=== PATIENT | male | born 1955 | race Caucasian/White ===

== ENCOUNTER 2020-04-11 07:16 | Day surgery (SDC) | payer BC, SELFPAY ==
[2020-04-07 15:34] VITALS: BMI 22.3
--- NOTE | 2020-04-10 09:41 | HO.ANESPROP2 ---
Documented by User: Emily Arredondo 04/10/20 09:42 HPI - Anesthesia Eval Consult details Narrative: 65yo M for Upper Endoscopy and Colonoscopy PMFSH Past Medical History Medical History Anemia Anxiety Back pain Hyperlipidemia Peripheral vascular disease Urethral stricture Viral pneumonia Family History Family History Father Medical history unknown Mother Medical history unknown Surgical History Surgical History H/O arterial bypass of lower limb History of surgery Hx of colonoscopy Hx of sinus surgery S/P femoral-popliteal bypass surgery Social History Social History Alcohol intake: never Smoking Status: Former smoker Advance Directives: No Advance Directives Information Provided: No Advance Directives on File: No Meds Allergies Allergy/AdvReac Type Severity Reaction Status Date / Time pollen extracts [POLLEN] Allergy Unknown Sneezing Verified 04/07/20 15:25 prednisone Allergy Unknown Anxiety Verified 04/07/20 15:25 Home Medications Medication Instructions Recorded Confirmed Type alprazolam 0.25 mg PO BID PRN 04/07/20 04/07/20 History atorvastatin 80 mg PO BEDTIME 04/07/20 04/07/20 History cholecalciferol (vitamin D3) 25 mcg PO DAILY 04/07/20 04/07/20 History [Vitamin D3] clopidogrel [Plavix] 75 mg PO DAILY 04/07/20 04/07/20 History fenofibrate 160 mg PO DAILY 04/07/20 04/07/20 History fexofenadine [Paige] 180 mg PO DAILY 04/07/20 04/07/20 History glucosamine sulfate [Glucosamine] 500 mg PO DAILY 04/07/20 04/07/20 History mometasone [Nasonex] 2 spray INTRANASAL DAILY PRN 04/07/20 04/07/20 History omega 6-ybx-ioi-fish oil [Fish Oil] 1 cap PO DAILY 04/07/20 04/07/20 History tramadol 50 mg PO Q8H PRN 04/07/20 04/07/20 History Exam Exam Date and Time: April 10, 2020 0941 Height,Weight and Vital Signs: Height 5 ft 11 in Weight 72.575 kg Pertinent Lab Results Pertinent Lab Results: Laboratory Tests 12/19/19 02/22/20 07:25 12:27 WBC 8.7 Hgb 11.7 L Hct 36.7 L Plt Count 310 Sodium 141 Potassium 4.2 Chloride 108 BUN 16 Creatinine 0.85 Assessment and Plan Assessment Anesthesia Assessment: Chart Reviewed Documented by User: Ariel Emery 04/11/20 08:12 PMFSH Past Medical History Medical History Anemia Anxiety Back pain Hyperlipidemia Peripheral vascular disease Urethral stricture Viral pneumonia Family History Family History Father Medical history unknown Mother Medical history unknown Surgical History Surgical History H/O arterial bypass of lower limb History of surgery Hx of colonoscopy Hx of sinus surgery S/P femoral-popliteal bypass surgery Social History Social History Alcohol intake: never Smoking Status: Former smoker Advance Directives: No Advance Directives Information Provided: No Advance Directives on File: No Meds Allergies Allergy/AdvReac Type Severity Reaction Status Date / Time pollen extracts [POLLEN] Allergy Unknown Sneezing Verified 04/07/20 15:25 prednisone Allergy Unknown Anxiety Verified 04/07/20 15:25 Home Medications Medication Instructions Recorded Confirmed Type alprazolam 0.25 mg PO BID PRN 04/07/20 04/07/20 History atorvastatin 80 mg PO BEDTIME 04/07/20 04/07/20 History cholecalciferol (vitamin D3) 25 mcg PO DAILY 04/07/20 04/07/20 History [Vitamin D3] clopidogrel [Plavix] 75 mg PO DAILY 04/07/20 04/07/20 History fenofibrate 160 mg PO DAILY 04/07/20 04/07/20 History fexofenadine [Paige] 180 mg PO DAILY 04/07/20 04/07/20 History glucosamine sulfate [Glucosamine] 500 mg PO DAILY 04/07/20 04/07/20 History mometasone [Nasonex] 2 spray INTRANASAL DAILY PRN 04/07/20 04/07/20 History omega 2-lgl-scv-fish oil [Fish Oil] 1 cap PO DAILY 04/07/20 04/07/20 History tramadol 50 mg PO Q8H PRN 04/07/20 04/07/20 History Exam Airway Mallampati Class: III TM Dist: >3cm Loose/Missing/Broken Teeth: No Heart: [id number] Lungs: cta b/l Assessment and Plan Assessment Anesthesia Assessment: Anesthesia Plan Discussed, PAT Visit and Chart Reviewed Final Anesthetic Review NPO: Yes ASA Class: III Final Preanesthetic Review: No Changes in Pt Med Stat, Meds/Allgs Chart Reviewed, Consent Obtained/Reviewed and Anes Risks/Benef Reviewed Patient Risk: Low Procedure Risk: Low Assessment/Block/Sedation in SS: Assess/Block/Sedation-SS Anesthetic Plan Anesthetic Plan: MAC: Disposition: Standard PACU
[2020-04-11 08:02] VITALS: BP 126/69; PULSE 77; RESP 18; TEMP 36.4; O2SAT 99
[2020-04-11] MEDS: Lactated Ringers 1,000 ML 100 ML IVCONT (08:27)
[2020-04-11 09:56] VITALS: BP 100/68; PULSE 67; RESP 12; TEMP 36.1; O2SAT 100
--- NOTE | 2020-04-11 10:03 | PM.OP ---
Brief Operative Note Date of Service: 04/11/20 Pre-op diagnosis: Screening, anemia Post-op diagnosis: other (Gastritis, R/O celiac disease, diverticulosis, internal hemorrhoids) Procedure: EGD with biopsies and Colonoscopy to the cecum Surgeon: Michael Mcdonough Anesthesia: MAC Estimated blood loss (mL): 3.0 Pathology: other (A. Descending duodenum B. Gastric antrum) Condition: stable Disposition: PACU
[2020-04-11 10:11] VITALS: BP 116/68; PULSE 75; RESP 16; TEMP 36.6; O2SAT 99
--- NOTE | 2020-04-11 10:15 | OP_ITS ---
SURGEON: Michael Mcdonough MD INDICATIONS: The patient presents for evaluation of colorectal cancer screening and anemia. Full consent has been obtained from him for this, including risks of bleeding and perforation. PREOPERATIVE DIAGNOSIS: POSTOPERATIVE DIAGNOSIS: PROCEDURE PERFORMED: Esophagogastroduodenoscopy with biopsies, and colonoscopy to cecum. ESTIMATED BLOOD LOSS: COMPLICATIONS: ANESTHESIA: Monitored anesthesia care. ASSISTANTS: SPECIMENS: PREOPERATIVE DIAGNOSES: Colorectal cancer screening and anemia. POSTOPERATIVE DIAGNOSES: Colorectal cancer screening and anemia, gastritis, rule out celiac disease, diverticulosis, and internal hemorrhoids. DESCRIPTION OF PROCEDURE: The patient was placed in the left lateral decubitus position. The Olympus video gastroscope was passed in the posterior oropharynx and upper esophagus under direct vision. The scope was passed slowly into the distal esophagus. The gastroesophageal junction appeared normal at 39 cm. There was no sign of any esophagitis nor Blanton's esophagus. There was a very minimal hiatal hernia. The scope was advanced to pylorus and the duodenum was cannulated to the descending portion. The duodenum including the bulb appeared normal without mass or ulceration. Biopsies were obtained from the 2nd and 3rd portions of duodenum. The scope was withdrawn back into the stomach. The gastric antrum and body had chronic changes of some gastritis with edema and erythema. There were no erosions or ulceration. There was good peristalsis. There was a small amount of coffee-grounds material in the stomach. The scope was retroflexed visualizing the proximal stomach carefully which appeared normal, without any sign of mass or ulceration. Scope was straightened. Biopsies were obtained from the gastric antrum. The scope was withdrawn back in the esophagus. The esophageal mucosa appeared normal. The scope was withdrawn from the patient. He was turned around for colonoscopy. The digital rectal exam revealed no abnormalities. The Olympus video pediatric colonoscope was entered into the rectum and advanced easily to the cecum. Once in the cecum, I did identify normal-appearing cecal pouch with appendiceal orifice and a normal-appearing ileocecal valve. There was transillumination of light deep in the right lower quadrant. The entire cecum appeared normal. The scope was slowly withdrawn assessing all mucosal surfaces carefully. Preparation was excellent. I did not visualize any sign of polyps, colitis, nor angiodysplasia. There was a mild amount of sigmoid diverticulosis. In the rectum, scope was retroflexed visualizing small internal hemorrhoids, but no other pathology. The rectal mucosa appeared normal. The scope was straightened out and withdrawn from the patient. He tolerated both procedures well and was returned to the recovery area in stable condition. IMPRESSION: 1. Gastritis. 2. Rule out celiac disease. 3. Diverticulosis. 4. Internal hemorrhoids. PLAN: The results of the biopsies will be checked. I suspect his mild anemia is in relation to the chronic gastritis and chronic use of Plavix. I shall start him on omeprazole 20 mg daily and I have recommend he start iron supplements once or twice a day as well. I would recommend a repeat colonoscopy in 10 years. If Helicobacter pylori is present in the gastric biopsies, we could consider treating that as well. He was advised to see me in several months for a followup visit. MD TAMIA Arzola/RACHEL / [id number]
--- NOTE | 2020-04-11 10:25 | HO.POSTANES ---
Post Anesthesia Evaluation Post Anesthesia Evaluation Vital Signs: Vital Signs Temp Pulse Resp BP Pulse Ox 04/11/20 08:02 97.5 F 77 18 126/69 99 Anesthesia: Monitored Mental Status: Awake Pain Control: Satisfactory Nausea/Vomiting: None Hydration: Adequate Anesthesia-Related Issues: No Anes. Related Issues
== END 2020-04-11 11:00 | disposition home or self-care (01) ==
PROVIDERS: PCP Internal Medicine; Visit Provider Internal Medicine
PROC: (CPT 45378; principal; 2020-04-11 08:30)
DX: Z12.11 Encounter for screening for malignant neoplasm of colon (principal); K57.30 Diverticulosis of large intestine without perforation or abscess without bleeding; K64.8 Other hemorrhoids; D64.9 Anemia, unspecified; K29.50 Unspecified chronic gastritis without bleeding; K44.9 Diaphragmatic hernia without obstruction or gangrene; E78.5 Hyperlipidemia, unspecified; I73.9 Peripheral vascular disease, unspecified; Z79.899 Other long term (current) drug therapy; Z88.8 Allergy status to other drugs, medicaments and biological substances; Z87.891 Personal history of nicotine dependence
CPT/HCPCS: 45378; 43239; 88305; 88342

== ENCOUNTER → 2020-11-04 15:21 | Outpatient (BNVA) | payer BC, SELFPAY | PROVIDERS: PCP Internal Medicine; Visit Provider Surgery Vascular Surgery ==

== ENCOUNTER 2020-11-13 08:05 | Outpatient (REF) | payer BC, SELFPAY ==
--- NOTE | ~2020-11-13 | XR_ITS ---
EXAMINATION: XR LUMBOSACRAL SPINE CLINICAL INFORMATION: Degenerative disc disease COMPARISON: Previous x-ray November 2018 TECHNIQUE: Three views of the lumbosacral spine. FINDINGS: There is very mild 2 mm anterior subluxation of L4 with respect L5. Bone alignment is otherwise normal. No fracture or dislocation is seen. There is multilevel degenerative disc disease, greatest at L2-L3 and L5-S1. There is lower lumbar spine facet arthritis. There may be arthritis at the sacroiliac joints. XR/XR lumbar spine 2-3V IMPRESSION: Multilevel degenerative disc disease and facet arthritis.
== END 2020-11-13 08:06 | disposition home or self-care (01) ==
LOC: HO.XRAY 08:05
PROVIDERS: PCP Internal Medicine; Visit Provider Internal Medicine
DX: M51.36 Other intervertebral disc degeneration, lumbar region (principal)
CPT/HCPCS: 72100

== ENCOUNTER 2020-11-19 08:15 | Outpatient (REF) | payer BC, SELFPAY ==
--- NOTE | ~2020-11-19 | US_ITS ---
EXAMINATION: NONINVASIVE ASSESSMENT OF THE ARTERIES OF BOTH LOWER EXTREMITIES WITH PVR EXAM AND BILATERAL LOWER EXTREMITY DUPLEX CLINICAL INFORMATION: Peripheral vascular disease. Patient is post reverse saphenous vein bypass left common femoral artery to the posterior tibial artery TECHNIQUE: Ankle pulse volume recordings, ankle pressure measurements and ankle brachial indices were obtained of the lower extremity arterial system bilaterally in addition to duplex Doppler techniques with wave form analysis and measurement of velocities in the common femoral, profunda femoral, superficial femoral, popliteal and tibial arteries. The study was performed only at rest. COMPARISON: Previous exam November 2016 FINDINGS: a) AT REST: RIGHT LE. The right ankle-brachial index is: 1.1 2. Right ankle pressure: Decreased 3. Right ankle PVR waveform: Dampened 4. Right direct duplex Doppler findings: There is evidence of atherosclerotic disease with vessel wall calcification. There are areas of ectasia or dilatation of the right SFA measuring up to 1.5 cm in the midportion. There are multiple collateral vessels seen arising from the distal superficial femoral artery. There is a ectasia or small aneurysm of the right popliteal artery measuring 1.5 cm. * Common femoral artery: 123 cm/s, Diastolic flow reversal: Yes * Superficial femoral artery (proximal, mid, distal): 118, 121, 153 cm/s, Diastolic flow reversal: Yes * Popliteal artery: 53 cm/s, Diastolic flow reversal: Yes * Posterior tibial artery: 71 cm/s, Diastolic flow reversal: Yes There is a small Whitehead's cyst. LEFT LE. The left ankle-brachial index is: 1.2 2. Left ankle pressure: Slightly decreased 3. Left ankle PVR waveform: Slightly dampened 4. Left direct duplex Doppler findings: There is evidence of atherosclerotic disease. * Common femoral artery: 105 cm/s, Diastolic flow reversal: Yes * Superficial femoral artery occluded * Popliteal artery: Occluded * The left femoral to posterior tibial artery bypass graft is patent. This is has areas of dilatation measuring up to 2.2 cm proximally. This has velocities ranging from 69 to 31 cm/s. No visible stenosis is seen. * Posterior tibial artery: 99 cm/s, Diastolic flow reversal: No. Biphasic. ECTOR Reference: * >0.97-1.25 = normal - no significant arterial disease * 0.75-0.96 = mild peripheral arterial disease * 0.5-0.74 = moderate peripheral arterial disease * <0.50 = severe peripheral arterial disease US/US ECTOR complete IMPRESSION: Right: Vessel wall calcification. No evidence of hemodynamically significant stenosis. 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 Patent left femoral to posterior tibial artery bypass graft. The graft is dilated measuring up to 2.2 cm proximally.
--- NOTE | ~2020-11-19 | US_ITS ---
EXAMINATION: NONINVASIVE ASSESSMENT OF THE ARTERIES OF BOTH LOWER EXTREMITIES WITH PVR EXAM AND BILATERAL LOWER EXTREMITY DUPLEX CLINICAL INFORMATION: Peripheral vascular disease. Patient is post reverse saphenous vein bypass left common femoral artery to the posterior tibial artery TECHNIQUE: Ankle pulse volume recordings, ankle pressure measurements and ankle brachial indices were obtained of the lower extremity arterial system bilaterally in addition to duplex Doppler techniques with wave form analysis and measurement of velocities in the common femoral, profunda femoral, superficial femoral, popliteal and tibial arteries. The study was performed only at rest. COMPARISON: Previous exam November 2016 FINDINGS: a) AT REST: RIGHT LE. The right ankle-brachial index is: 1.1 2. Right ankle pressure: Decreased 3. Right ankle PVR waveform: Dampened 4. Right direct duplex Doppler findings: There is evidence of atherosclerotic disease with vessel wall calcification. There are areas of ectasia or dilatation of the right SFA measuring up to 1.5 cm in the midportion. There are multiple collateral vessels seen arising from the distal superficial femoral artery. There is a ectasia or small aneurysm of the right popliteal artery measuring 1.5 cm. * Common femoral artery: 123 cm/s, Diastolic flow reversal: Yes * Superficial femoral artery (proximal, mid, distal): 118, 121, 153 cm/s, Diastolic flow reversal: Yes * Popliteal artery: 53 cm/s, Diastolic flow reversal: Yes * Posterior tibial artery: 71 cm/s, Diastolic flow reversal: Yes There is a small Whitehead's cyst. LEFT LE. The left ankle-brachial index is: 1.2 2. Left ankle pressure: Slightly decreased 3. Left ankle PVR waveform: Slightly dampened 4. Left direct duplex Doppler findings: There is evidence of atherosclerotic disease. * Common femoral artery: 105 cm/s, Diastolic flow reversal: Yes * Superficial femoral artery occluded * Popliteal artery: Occluded * The left femoral to posterior tibial artery bypass graft is patent. This is has areas of dilatation measuring up to 2.2 cm proximally. This has velocities ranging from 69 to 31 cm/s. No visible stenosis is seen. * Posterior tibial artery: 99 cm/s, Diastolic flow reversal: No. Biphasic. ECTOR Reference: * >0.97-1.25 = normal - no significant arterial disease * 0.75-0.96 = mild peripheral arterial disease * 0.5-0.74 = moderate peripheral arterial disease * <0.50 = severe peripheral arterial disease US/US arterial duplex LE BI IMPRESSION: Right: Vessel wall calcification. No evidence of hemodynamically significant stenosis. 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 Patent left femoral to posterior tibial artery bypass graft. The graft is dilated measuring up to 2.2 cm proximally.
== END 2020-11-19 08:16 | disposition home or self-care (01) ==
LOC: HO.US 08:15
PROVIDERS: PCP Internal Medicine; Visit Provider Surgery Vascular Surgery
DX: I70.213 Atherosclerosis of native arteries of extremities with intermittent claudication, bilateral legs (principal)
CPT/HCPCS: 93923; 93925

== ENCOUNTER → 2020-12-11 10:42 | Outpatient (BNVA) | payer BC, SELFPAY | PROVIDERS: PCP Internal Medicine; Visit Provider Surgery Vascular Surgery ==

== ENCOUNTER → 2020-12-25 10:06 | Outpatient (BNVA) | payer BC, SELFPAY | PROVIDERS: PCP Internal Medicine; Referring Provider Internal Medicine; Visit Provider Surgery ==

== ENCOUNTER 2021-03-03 05:58 | Day surgery (SDC) | payer BC, SELFPAY ==
[2021-02-26 12:10] VITALS: BMI 23.0
--- NOTE | 2021-03-02 09:33 | HO.ANESPROP2 ---
Documented by User: Emily Arredondo NP 03/02/21 09:34 HPI - Anesthesia Eval Consult details Narrative: 65yo M for Exam Under Anesthesia, Poss Seton, Poss Fistulotomy Plavix for PVD - OK to hold per PCP [facility] Active Problems Active Problems: All Active Problems (Updated 02/26/21 @ 12:16 by Anais Maurer, RN) Gastritis (Acute) Sebaceous cyst (Acute) Anal fistula (Acute) Anemia (Acute) Impaired glucose tolerance (Acute) Peripheral neuropathy (Acute) Lumbar degenerative disc disease (Acute) Anxiety (Acute) Erectile dysfunction (Acute) Allergic rhinitis (Acute) Mixed hyperlipidemia (Acute) Peripheral vascular disease (Acute) Past Medical History Medical History Allergic rhinitis Anal fistula Anemia Anxiety Back pain Cold virus COVID-19 vaccine series completed Erectile dysfunction Impaired glucose tolerance Insomnia Lumbar degenerative disc disease Mixed hyperlipidemia Peripheral neuropathy Peripheral vascular disease Urethral stricture Viral pneumonia Family History Family History Father Medical history unknown Mother Medical history unknown Surgical History Surgical History H/O arterial bypass of lower limb Hx of colonoscopy Hx of sinus surgery S/P femoral-popliteal bypass surgery Social History Social History (Updated 02/26/21 @ 12:07 by Anais Maurer, THAO) Housing: House Alcohol intake: never Patient Tobacco Use Status: Former Tobacco user Quit Date: 2011 Tobacco use type: Cigarette e-Cigarette/Vaping Use: Never Used Second Hand Smoke Exposure: Yes Use of substances other than those prescribed or required for medical reasons: No Are you DNR?: No Advance Directives: No Advance Directives Information Provided: No Advance Directives on File: No service: No Current occupational status: employed Meds Allergies Allergy/AdvReac Type Severity Reaction Status Date / Time pollen extracts [POLLEN] Allergy Intermediate Sneezing Verified 02/26/21 12:10 ibuprofen [From Advil] Allergy Swelling Verified 03/03/21 06:20 Home Medications Medication Instructions Recorded Confirmed Last Taken Type cholecalciferol (vitamin D3) 25 25 mcg PO DAILY 04/07/20 02/26/21 04/11/20 04:00 History mcg (1,000 unit) capsule (Vitamin D3) glucosamine sulfate 500 mg tablet 500 mg PO DAILY 04/07/20 02/26/21 Unknown History (Glucosamine) mometasone 50 mcg/actuation nasal 2 spray INTRANASAL DAILY PRN 04/07/20 02/26/21 Unknown History spray (Nasonex) omega 3-rcr-com-fish oil 1,000 mg 1 cap PO DAILY 04/07/20 02/26/21 04/08/20 History (120 mg-180 mg) capsule (Fish Oil) Exam Exam Date and Time: March 02, [id number] Height,Weight and Vital Signs: Height 5 ft 11 in Weight 74.843 kg Assessment and Plan Assessment Anesthesia Assessment: Chart Reviewed Documented by User: Symone Salmon MD 03/03/21 08:26 [facility] Past Medical History Medical History Allergic rhinitis Anal fistula Anemia Anxiety Back pain Cold virus COVID-19 vaccine series completed Erectile dysfunction Impaired glucose tolerance Insomnia Lumbar degenerative disc disease Mixed hyperlipidemia Peripheral neuropathy Peripheral vascular disease Urethral stricture Viral pneumonia Family History Family History Father Medical history unknown Mother Medical history unknown Family history of problems with anesthesia: No Surgical History Surgical History H/O arterial bypass of lower limb Hx of colonoscopy Hx of sinus surgery S/P femoral-popliteal bypass surgery History of Problems with Anesthesia: No Social History Social History (Updated 02/26/21 @ 12:07 by Anais Maurer RN) Housing: House Alcohol intake: never Patient Tobacco Use Status: Former Tobacco user Quit Date: 2011 Tobacco use type: Cigarette e-Cigarette/Vaping Use: Never Used Second Hand Smoke Exposure: Yes Use of substances other than those prescribed or required for medical reasons: No Are you DNR?: No Advance Directives: No Advance Directives Information Provided: No Advance Directives on File: No service: No Current occupational status: employed Meds Allergies Allergy/AdvReac Type Severity Reaction Status Date / Time pollen extracts [POLLEN] Allergy Intermediate Sneezing Verified 02/26/21 12:10 ibuprofen [From Advil] Allergy Swelling Verified 03/03/21 06:20 Home Medications Medication Instructions Recorded Confirmed Last Taken Type cholecalciferol (vitamin D3) 25 25 mcg PO DAILY 04/07/20 02/26/21 04/11/20 04:00 History mcg (1,000 unit) capsule (Vitamin D3) glucosamine sulfate 500 mg tablet 500 mg PO DAILY 04/07/20 02/26/21 Unknown History (Glucosamine) mometasone 50 mcg/actuation nasal 2 spray INTRANASAL DAILY PRN 04/07/20 02/26/21 Unknown History spray (Nasonex) omega 7-gch-jjb-fish oil 1,000 mg 1 cap PO DAILY 04/07/20 02/26/21 04/08/20 History (120 mg-180 mg) capsule (Fish Oil) Exam Height,Weight and Vital Signs: Height 5 ft 11 in Weight 74.843 kg Vital Signs Temp Pulse Resp BP Pulse Ox 03/03/21 06:34 97.8 F 71 16 117/66 99 Airway Mallampati Class: I TM Dist: >3cm Neck ROM: Full Loose/Missing/Broken Teeth: No Heart: RRR Lungs: CTAB Assessment and Plan Assessment Anesthesia Assessment: Anesthesia Plan Discussed Final Anesthetic Review Family History of Problems with Anesthesia: No History of Problems with Anesthesia: No NPO: Yes ASA Class: III Final Preanesthetic Review: No Changes in Pt Med Stat, Meds/Allgs Chart Reviewed, Consent Obtained/Reviewed and Anes Risks/Benef Reviewed Patient Risk: Intermediate Procedure Risk: Low Assessment/Block/Sedation in SS: Assess/Block/Sedation-SS Anesthetic Plan Anesthetic Plan: GA Disposition: Standard PACU
[2021-03-03 06:34] VITALS: BP 117/66; PULSE 71; RESP 16; TEMP 36.6; O2SAT 99
[2021-03-03] MEDS: Lactated Ringers 1,000 ML 100 ML IVCONT (06:40)
--- NOTE | 2021-03-03 07:19 | MHC.SHP ---
Pre-Procedural Eval Section A Date of Service: 03/03/21 Section B Chief Complaint: anal fistula Allergies: Allergies Allergy/AdvReac Type Severity Reaction Status Date / Time pollen extracts [POLLEN] Allergy Intermediate Sneezing Verified 02/26/21 12:10 ibuprofen [From Advil] Allergy Swelling Verified 03/03/21 06:20 Plan I have reviewed the history and physical and performed a pertinent physical examination on my patient. No changes have occurred unless specified.
--- NOTE | 2021-03-03 08:12 | W.PM.OPN ---
Operative Note Operative Note Date of Service: 03/03/21 Narrative: Preop diagnosis: Anal Fistula Postop diagnosis: Anal fistula Procedure: Exam under anesthesia, and seton placement Surgeon: Horace Lozoya MD Asst: MONIK [place] student The patient is a 65-year-old male with note of recurrent area of drainage and swelling the anus. Examination in the office revealed what appeared to be an external sinus opening about 1 cm from the anal verge on the left anterior area. I therefore explained to him the option of proceeding with exam under anesthesia, possible fistulotomy, possible seton placement. He understood the risks, benefits, and alternatives and he wanted to proceed. He was brought to the operating room placed in prone nesha-knife position under general anesthesia via endotracheal tube. The buttocks were retracted with wide tape laterally. The perianal area was prepped and draped in the usual sterile fashion. A surgical time-out was done. The patient received Cefotan 2 g IV preoperatively. I infiltrated the perianal area with lidocaine 1%. I examined the perianal area and there was note of what appeared to be a very small external sinus opening in the left anterolateral aspect just about 1 cm from the anal verge. I inserted a Gavin Varma retractor and examined the anal canal circumferentially. He did have external and internal hemorrhoids. I could feel an induration on the area surrounding the external sinus. I did not see any other lesions. I inserted a fine probe through the external sinus and followed this gently making sure that we did not create any false tract. The probe came through small internal sinus opening along the dentate line radially. I passed a yellow vessel loop as a seton through this. This was looped and tied with a silk 3-0 tie. I shortened the tract by cauterizing the skin in the perianal area to unroof this . I then infiltrated the perianal area with Marcaine 0.5% for postop analgesia. The procedure was then completed. The patient tolerated procedure well. There were no complication noted. Estimated blood loss about 2 cc. Initial final counts of sponges and instruments were correct. The patient is extubated without difficulty and transferred to the recovery room with stable vital signs.
--- NOTE | 2021-03-03 08:17 | PM.OP ---
Brief Operative Note Date of Service: 03/03/21 Pre-op diagnosis: Anal fistula Post-op diagnosis: same Procedure: Exam under anesthesia, seton placement Surgeon: Horace Lozoya MD Anesthesia: GETA Was an Data Modeler used for this Procedure?: No Estimated blood loss (mL): 2 Pathology: none sent Condition: stable Disposition: PACU
[2021-03-03 08:28] VITALS: BP 122/61; PULSE 81; RESP 16; TEMP 36.1; O2SAT 100
[2021-03-03 08:33] VITALS: BP 117/67; PULSE 73; RESP 16; O2SAT 100
[2021-03-03 08:38] VITALS: BP 119/74; PULSE 75; RESP 16; O2SAT 100
[2021-03-03] MEDS: oxyCODONE HCl Immed Release 5 MG TABLET PO (08:41)
[2021-03-03 08:44] VITALS: BP 117/72; PULSE 80; RESP 16; O2SAT 98
[2021-03-03 09:00] VITALS: BP 120/72; PULSE 74; RESP 16; TEMP 36.1; O2SAT 99
== END 2021-03-03 09:53 | disposition home or self-care (01) ==
PROVIDERS: PCP Internal Medicine; Visit Provider Surgery
PROC: (CPT 46020; principal; 2021-03-03 07:30)
DX: K60.3 Anal fistula (principal); R73.02 Impaired glucose tolerance (oral); D64.9 Anemia, unspecified; I73.9 Peripheral vascular disease, unspecified; G62.9 Polyneuropathy, unspecified; Z79.899 Other long term (current) drug therapy; Z88.8 Allergy status to other drugs, medicaments and biological substances; Z87.891 Personal history of nicotine dependence; Z87.01 Personal history of pneumonia (recurrent)
CPT/HCPCS: 46020; J2250; J2405; J3010

== ENCOUNTER → 2021-03-18 09:55 | Outpatient (BNVA) | payer BC, SELFPAY | PROVIDERS: PCP Internal Medicine; Referring Provider Internal Medicine; Visit Provider Surgery ==

== ENCOUNTER → 2021-04-02 09:40 | Outpatient (BNVA) | payer BC, SELFPAY | PROVIDERS: PCP Internal Medicine; Referring Provider Internal Medicine; Visit Provider Surgery ==

== ENCOUNTER 2021-04-30 06:09 | Outpatient (REF) | payer BC, SELFPAY ==
[2021-04-30 06:24] LABS: MANUAL DIFF FLAG NO
[2021-04-30 07:23] LABS: Basophils Percent Auto 0.9 % (0-2); Eosinophils Absolute Auto 0.3 X10*3/uL (0.0-0.4); Eosinophils Percent Auto 5.8 % (0-4); Hematocrit 37.9 % (42.0-52.0); Hemoglobin 12.3 g/dl (14.0-18.0); Imm Gran Abs Auto 0.01 X10*3/uL (0.00-0.03); Imm Gran Pct Auto 0.2 % (0.0-0.4); Lymphocytes Absolute Auto 1.1 X10*3/uL (1.2-4.9); Lymphocytes Percent Auto 25.5 % (20-40); Mean Corpuscular HGB Conc 32.5 g/dl (31.0-36.0); Mean Corpuscular Hemoglobin 27.4 pg (27.0-33.0); Mean Corpuscular Volume 84.4 fL (80.0-98.0); Monocytes Absolute Auto 0.4 X10*3/uL (0.1-1.2); Monocytes Percent Auto 9.8 % (2-11); Neutrophils Absolute Auto 2.6 x10*3/uL (2.0-8.3); Neutrophils Percent Auto 57.8 % (45-73); Platelet Count 301 X10*3/uL (160-400); Red Blood Count 4.49 X10*6/uL (4.60-5.80); Red Cell Distribution Width 14.3 % (11.0-16.0); White Blood Count 4.5 X10*3/uL (4.8-10.8)
[2021-04-30 07:24] LABS: Immature Retic Fraction 3.9 % (2.3-13.4); Retic HGB Equivalent 31.2 pg (30.0-35.0); Reticulocyte Percent 1.1 % (0.5-1.8); Reticulocytes Absolute 0.048 X10*6/uL (0.026-0.095)
[2021-04-30 08:04] LABS: Alanine Aminotransferase 35 U/L (0-40); Albumin Level 4.2 g/dL (3.5-5.0); Alkaline Phosphatase 73 U/L (39-117); Anion Gap 13 (12-20); Aspartate Amino Transferase 28 U/L (5-37); Bilirubin Total 0.4 mg/dL (0.0-1.0); Blood Urea Nitrogen 17 mg/dL (9-16); Calcium 9.8 mg/dL (8.4-10.2); Carbon Dioxide 27 mmol/L (22-29); Chloride 109 mmol/L (96-108); Cholesterol 180 mg/dL; Estimated Glomerular Filt Rate > 60; Glucose Fasting 102 mg/dL (60-99); HDL Cholesterol 44 mg/dL; Iron 67 mcg/dL (45-160); LDL Cholesterol Calculated 113 mg/dl; Percent Iron Saturation 19 % (15-50); Potassium 4.6 mmol/L (3.3-5.1); Sodium 144 mmol/L (135-145); Total Iron Binding Capacity 351 mcg/dL (228-428); Total Protein 6.9 g/dL (6.5-8.0); Triglycerides 116 mg/dL; Unsaturated Iron Binding 284 ug/dL
[2021-04-30 08:15] LABS: Ferritin 165 ng/mL (20-250); Free T4 (Free Thyroxine) 1.05 ng/dL (0.71-1.85)
[2021-04-30 08:26] LABS: Prostate Specific Antigen Scr 0.48 ng/mL (<0.05-4.0)
[2021-04-30 08:58] LABS: Folate 15.6 ng/mL (> or = 4.0); Vitamin B12 915 pg/mL (200-900)
== END 2021-04-30 06:10 | disposition home or self-care (01) ==
LOC: HO.LAB 06:09
PROVIDERS: Internal Medicine; PCP Internal Medicine; Visit Provider Internal Medicine
DX: Z12.5 Encounter for screening for malignant neoplasm of prostate (principal); E78.2 Mixed hyperlipidemia; G62.9 Polyneuropathy, unspecified; M51.36 Other intervertebral disc degeneration, lumbar region; J30.9 Allergic rhinitis, unspecified
CPT/HCPCS: 36415; 80053; 80061; 82607; 82728; 82746; 83540; 84153; 84439; 84443; 85025; 85045

== ENCOUNTER → 2021-05-04 08:58 | Outpatient (BNVA) | payer BC, SELFPAY | PROVIDERS: PCP Internal Medicine; Referring Provider Internal Medicine; Visit Provider Surgery ==

== ENCOUNTER → 2021-08-13 09:11 | Outpatient (BNVA) | payer BC, SELFPAY | PROVIDERS: PCP Internal Medicine; Referring Provider Internal Medicine; Visit Provider Surgery | DX: Z13.89 Encounter for screening for other disorder (principal) ==

== ENCOUNTER → 2021-09-21 09:29 | Outpatient (BNVA) | payer BC, SELFPAY | PROVIDERS: PCP Internal Medicine; Referring Provider Internal Medicine; Visit Provider Surgery | DX: Z13.89 Encounter for screening for other disorder (principal) ==

== ENCOUNTER → 2021-11-02 10:22 | Outpatient (BNVA) | payer BC, SELFPAY | PROVIDERS: PCP Internal Medicine; Referring Provider Internal Medicine; Visit Provider Surgery | DX: K60.3 Anal fistula (principal) ==

== ENCOUNTER 2021-12-17 08:24 | Outpatient (REF) | payer BC, SELFPAY ==
--- NOTE | ~2021-12-17 | US_ITS ---
EXAMINATION: NONINVASIVE ASSESSMENT OF THE ARTERIES OF BOTH LOWER EXTREMITIES WITH PVR EXAM AND BILATERAL LOWER EXTREMITY DUPLEX Karen Edwards MD CLINICAL INFORMATION: Peripheral vascular disease TECHNIQUE: Ankle pulse volume recordings, ankle pressure measurements and ankle brachial indices were obtained of the lower extremity arterial system bilaterally in addition to duplex Doppler techniques with wave form analysis and measurement of velocities in the common femoral, profunda femoral, superficial femoral, popliteal and tibial arteries. The study was performed only at rest. COMPARISON: Lower extremity noninvasive exam on 11/19/2020 FINDINGS: a) AT REST: RIGHT LE. The right ankle-brachial index is: 1.19 * >0.97-1.25 = normal - no significant arterial disease * 0.75-0.96 = mild peripheral arterial disease * 0.5-0.74 = moderate peripheral arterial disease * <0.50 = severe peripheral arterial disease 2. Right ankle pressure: normal. 3. Right ankle PVR waveform: normal. 4. Right direct duplex Doppler findings: normal multi-phasic flow is appreciated. There are scattered areas of atherosclerotic disease but no hemodynamically significant stenoses. Mild dilatation of the SFA and popliteal artery suggesting aneurysms. LEFT LE. The left ankle-brachial index is: 1.29 * >0.97-1.25 = normal - no significant arterial disease * 0.75-0.96 = mild peripheral arterial disease * 0.5-0.74 = moderate peripheral arterial disease * <0.50 = severe peripheral arterial disease 2. Left ankle pressure: normal. 3. Left ankle PVR waveform: normal. 4. Left direct duplex Doppler findings: Occlusion of the right superficial femoral artery and popliteal artery. Reconstitution of the posterior tibial artery. The common femoral-posterior tibial artery bypass graft is patent. No significant stenoses are identified. US/US arterial duplex LE BI IMPRESSION: Right lower extremity: Scattered areas of atherosclerotic disease, no hemodynamically significant stenoses. 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 Left lower extremity: Occlusion of the [place] superficial femoral and popliteal artery. Patent common femoral-posterior tibial artery bypass graft. No significant change in findings compared to the prior exam on 11/19/2020.
--- NOTE | ~2021-12-17 | US_ITS ---
EXAMINATION: NONINVASIVE ASSESSMENT OF THE ARTERIES OF BOTH LOWER EXTREMITIES WITH PVR EXAM AND BILATERAL LOWER EXTREMITY DUPLEX Karen Edwards MD CLINICAL INFORMATION: Peripheral vascular disease TECHNIQUE: Ankle pulse volume recordings, ankle pressure measurements and ankle brachial indices were obtained of the lower extremity arterial system bilaterally in addition to duplex Doppler techniques with wave form analysis and measurement of velocities in the common femoral, profunda femoral, superficial femoral, popliteal and tibial arteries. The study was performed only at rest. COMPARISON: Lower extremity noninvasive exam on 11/19/2020 FINDINGS: a) AT REST: RIGHT LE. The right ankle-brachial index is: 1.19 * >0.97-1.25 = normal - no significant arterial disease * 0.75-0.96 = mild peripheral arterial disease * 0.5-0.74 = moderate peripheral arterial disease * <0.50 = severe peripheral arterial disease 2. Right ankle pressure: normal. 3. Right ankle PVR waveform: normal. 4. Right direct duplex Doppler findings: normal multi-phasic flow is appreciated. There are scattered areas of atherosclerotic disease but no hemodynamically significant stenoses. Mild dilatation of the SFA and popliteal artery suggesting aneurysms. LEFT LE. The left ankle-brachial index is: 1.29 * >0.97-1.25 = normal - no significant arterial disease * 0.75-0.96 = mild peripheral arterial disease * 0.5-0.74 = moderate peripheral arterial disease * <0.50 = severe peripheral arterial disease 2. Left ankle pressure: normal. 3. Left ankle PVR waveform: normal. 4. Left direct duplex Doppler findings: Occlusion of the right superficial femoral artery and popliteal artery. Reconstitution of the posterior tibial artery. The common femoral-posterior tibial artery bypass graft is patent. No significant stenoses are identified. US/US ECTOR complete IMPRESSION: Right lower extremity: Scattered areas of atherosclerotic disease, no hemodynamically significant stenoses. 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 Left lower extremity: Occlusion of the [place] superficial femoral and popliteal artery. Patent common femoral-posterior tibial artery bypass graft. No significant change in findings compared to the prior exam on 11/19/2020.
== END 2021-12-17 08:25 | disposition home or self-care (01) ==
LOC: HO.US 08:24
PROVIDERS: Visit Provider Surgery Vascular Surgery
DX: I73.9 Peripheral vascular disease, unspecified (principal)
CPT/HCPCS: 93923; 93925

== ENCOUNTER → 2022-05-19 09:01 | Outpatient (BNVA) | payer MEDICARE, SELFPAY | PROVIDERS: PCP Internal Medicine; Visit Provider Surgery | DX: K60.3 Anal fistula (principal) | CPT/HCPCS: 99212 ==

== ENCOUNTER → 2022-06-24 13:32 | Outpatient (BNVA) | payer MEDICARE, SELFPAY | PROVIDERS: PCP Internal Medicine; Visit Provider Surgery | DX: K60.3 Anal fistula (principal) | CPT/HCPCS: 99212 ==

== ENCOUNTER → 2022-07-22 09:34 | Outpatient (BNVA) | payer MEDICARE, SELFPAY | PROVIDERS: PCP Internal Medicine; Visit Provider Surgery | DX: K60.3 Anal fistula (principal) | CPT/HCPCS: 99212 ==

== ENCOUNTER 2022-11-18 09:20 | Outpatient (REF) | payer MEDICARE, SELFPAY ==
--- NOTE | ~2022-11-18 | US_ITS ---
EXAMINATION: US SCROTUM CLINICAL INFORMATION: Right lower quadrant pain and right-sided testicular pain. Rule out torsion versus epididymitis.. COMPARISON: August 15, 2007 TECHNIQUE: A sonogram of the scrotum was performed assessing luna-scale appearance and color Doppler flow. Spectral Doppler analysis of the arterial and venous flow were performed in the testes bilaterally. FINDINGS: RIGHT: Right testicle measures 4.1 x 2.3 x 3.4 cm, volume 16.8 mL. No focal testicular parenchymal lesions are visualized. Spectral Doppler analysis of the arterial and venous flow is normal in the right testis. Right epididymal head is normal in size. There is a 4 mm epididymal head cyst. There is a small hydrocele present. No right varicocele is seen. Right epididymal Doppler flow is normal. LEFT: Left testicle measures 4.2 x 2.1 x 3.1 cm, volume 14.3 mL. No focal testicular parenchymal lesions are visualized. Spectral Doppler analysis of the arterial and venous flow is normal in the left testis. Left epididymal head is normal in size. There is a 2 mm epididymal head cyst. No left varicocele is seen. There is a small hydrocele present. There is some left epididymal head calcifications. Left epididymal Doppler flow is normal. US/US scrotum IMPRESSION: No evidence of testicular torsion or epididymitis.
--- NOTE | ~2022-11-18 | US_ITS ---
EXAMINATION: US SCROTUM CLINICAL INFORMATION: Right lower quadrant pain and right-sided testicular pain. Rule out torsion versus epididymitis.. COMPARISON: August 15, 2007 TECHNIQUE: A sonogram of the scrotum was performed assessing luna-scale appearance and color Doppler flow. Spectral Doppler analysis of the arterial and venous flow were performed in the testes bilaterally. FINDINGS: RIGHT: Right testicle measures 4.1 x 2.3 x 3.4 cm, volume 16.8 mL. No focal testicular parenchymal lesions are visualized. Spectral Doppler analysis of the arterial and venous flow is normal in the right testis. Right epididymal head is normal in size. There is a 4 mm epididymal head cyst. There is a small hydrocele present. No right varicocele is seen. Right epididymal Doppler flow is normal. LEFT: Left testicle measures 4.2 x 2.1 x 3.1 cm, volume 14.3 mL. No focal testicular parenchymal lesions are visualized. Spectral Doppler analysis of the arterial and venous flow is normal in the left testis. Left epididymal head is normal in size. There is a 2 mm epididymal head cyst. No left varicocele is seen. There is a small hydrocele present. There is some left epididymal head calcifications. Left epididymal Doppler flow is normal. US/US scrotum doppler IMPRESSION: No evidence of testicular torsion or epididymitis.
== END 2022-11-18 09:21 | disposition home or self-care (01) ==
LOC: HO.HMGCX 09:20
PROVIDERS: PCP Internal Medicine; Visit Provider Physician Assistant
DX: R10.31 Right lower quadrant pain (principal)
CPT/HCPCS: 76870; 93975

== ENCOUNTER 2022-12-10 08:37 | Outpatient (REF) | payer MEDICARE, SELFPAY ==
--- NOTE | ~2022-12-10 | XR_ITS ---
EXAMINATION: XR HIP, RIGHT CLINICAL INFORMATION: Right lower quadrant pain. COMPARISON: None available. TECHNIQUE: Two views of the right hip. FINDINGS: Some minimal degenerative changes are present in the hip with some acetabular roof sclerosis and minimal osteophyte. No fractures are seen. Surgical clips are seen in the region of both saphenous veins. Marked vascular calcification present. XR/XR hip RT min 2V IMPRESSION: Minimal degenerative changes in the right hip.
== END 2022-12-10 08:38 | disposition home or self-care (01) ==
LOC: HO.XRAY 08:37
PROVIDERS: PCP Internal Medicine; Visit Provider Internal Medicine
DX: R10.31 Right lower quadrant pain (principal)
CPT/HCPCS: 73502

== ENCOUNTER 2022-12-17 09:45 | Outpatient (AMB) | payer MEDICARE, SELFPAY ==
[2022-12-17 09:46] VITALS: BP 128/70; PULSE 100; O2SAT 98; BMI 22.1
--- NOTE | 2022-12-17 09:46 | MHC.PC.OV ---
Vital Signs 12/17/22 09:46 Height 5 ft 11 in Weight 158 lb 4 oz BMI 22.1 BP 128/70 Blood Pressure Location Lt brachial Position Sitting Pulse 100 Pulse Source Pulse Oximeter Pulse Oximetry (%) 98 Intake Visit Reasons: Hypercholesterolemia, chronic low back pain Intake Note: pt is here for hypercholesterolemia, and chronic back pain English Composition Teacher Required: No Accompanied by: Self / Same As Patient Allergies pollen extracts [POLLEN] Allergy (Intermediate, Verified 12/17/22 09:47) Sneezing ibuprofen [From Advil] Allergy (Verified 12/17/22 09:47) Swelling Medication List - Last Reconciled 12/17/22 by Maverick Quezada MD alprazolam 0.25 mg PO BID PRN 30 days atorvastatin 80 mg PO DAILY 90 days cholecalciferol (vitamin D3) (Vitamin D3) 25 mcg PO DAILY clopidogrel (Plavix) 75 mg PO DAILY fexofenadine 180 mg PO DAILY ibuprofen 200 mg PO Q12H PRN tramadol 50 mg PO Q8H PRN 90 days trazodone 100 mg PO BEDTIME 90 days triamcinolone acetonide (Nasacort Allergy) 2 sprays intranasal DAILY Tobacco use date assessed: 09/10/22 Fall risk assessment: No Falls in past year Last assessed Fall Risk: 12/17/22 Dental Screening Dental Screen Date: 12/17/22 Did you have a dental visit in the last 12 months?: Yes Did you have a dental problem in the last 6 months where you did not have access to dental care?: No Was dental information given to patient?: Patient has dentist HPI Hypercholesterolemia, chronic low back pain HPI Details 67-year-old male with lumbar degenerative disc disease hypercholesterolemia impaired glucose tolerance generalized anxiety disorder and the right inguinal pain x-ray of the hip requested patient was last seen 12/03/2022 x-ray revealing mild arthritis also concern on weight . apetitte is good but does not binge, trazodone refill needed PFSH Medical History Allergic rhinitis Anal fistula Anemia Anxiety Back pain Cold virus COVID-19 vaccine series completed Erectile dysfunction Impaired glucose tolerance Insomnia Lumbar degenerative disc disease Mixed hyperlipidemia Peripheral neuropathy Peripheral vascular disease Screening for abdominal aortic aneurysm Urethral stricture Viral pneumonia Surgical History H/O arterial bypass of lower limb History of surgery (03/03/21) Hx of colonoscopy Hx of sinus surgery S/P femoral-popliteal bypass surgery Family History Father Medical history unknown Mother Medical history unknown Social History Housing: House Alcohol intake: never Patient Tobacco Use Status: Former Tobacco user Quit Date: 2011 Tobacco use type: Cigarette Years Smoked: quit 2009 e-Cigarette/Vaping Use: Never Used Second Hand Smoke Exposure: Yes service: No Current occupational status: employed Cognitive needs: No Hearing needs: No Vision needs: Yes Questionnaire Thrive Questionnaire Date Thrive assessed: 09/10/22 HÉCTOR-7 AMB Questionnaire HÉCTOR-7 Date HÉCTOR - 7 assessed: 06/07/22 Source: Developed by Drs. Michael Rebollar, Kait Cooper, Abelardo Ruby and colleagues, with an educational faustino from [employer]. Physical exam (Primary Care) Vital Signs: Last Vital Signs Pulse 100 12/17/22 09:46 BP 128/70 12/17/22 09:46 Pulse Ox 98 12/17/22 09:46 BMI result Body Mass Index 22.1 Tobacco/Smoking Status: Tobacco use Status Tobacco use date assessed 09/10/22 12/17/22 09:51 Patient Tobacco Use Status Former Tobacco user 12/17/22 09:51 Tobacco use type Cigarette 12/17/22 09:51 e-Cigarette/Vaping Use Never Used 12/17/22 09:51 Thrive Assessment: Date of Thrive Assessment Date Thrive assessed 09/10/22 12/17/22 09:51 Const General: alert; No acute distress Eyes Conjunctivae: conjunctivae normal Resp Auscultation: clear to auscultation bilaterally Cardio Rate: regular rate Rhythm: regular rhythm GI Other: Vague tenderness on right lower quadrant with no guarding no rebound Inspection: Yes normal to inspection Extrem General: Yes normal to inspection and No edema Assessment and Plan Assessment & Plan (1) Right inguinal pain: Code(s): R10.31 - Right lower quadrant pain Plan: CT scan to look into the problem question of hernia (2) RLQ abdominal pain: Code(s): R10.31 - Right lower quadrant pain Plan: Will order for the CT scan to try to explain pain that the patient is having, patient also is having some weight loss Orders: Orders Blood Urea Nitrogen Today R10.31 - Right lower quadrant pain Creatinine Today R10.31 - Right lower quadrant pain CT abdomen pelvis w IV con Today R10.31 - Right lower quadrant pain Coding Level of Care Code Est Pt Level 4 (58425) Diagnoses Right inguinal pain R10.31 RLQ abdominal pain R10.31
== END 2022-12-17 10:22 | disposition home or self-care (01) ==
PROVIDERS: Visit Provider Internal Medicine
DX: R10.31 Right lower quadrant pain (principal)
CPT/HCPCS: 99214

== ENCOUNTER 2023-01-19 08:49 | Outpatient (REF) | payer MEDICARE, SELFPAY ==
[2023-01-19 10:37] LABS: Blood Urea Nitrogen 15 mg/dL (9-16); Estimated Glomerular Filt Rate > 60
== END 2023-01-19 08:50 | disposition home or self-care (01) ==
LOC: HO.LAB 08:49
PROVIDERS: PCP Internal Medicine; Visit Provider Internal Medicine
DX: R10.31 Right lower quadrant pain (principal)
CPT/HCPCS: 36415; 82565; 84520

== ENCOUNTER 2023-01-24 07:55 | Outpatient (REF) | payer MEDICARE, SELFPAY ==
--- NOTE | ~2023-01-24 | CT_ITS ---
EXAMINATION: CT ABDOMEN AND PELVIS WITH CONTRAST CLINICAL INFORMATION: Right lower quadrant pain COMPARISON: None available. TECHNIQUE: Multidetector volumetric images were obtained from the superior aspect of the liver through the pubic symphysis following administration 85 mL of Omnipaque 350 intravenous contrast. Sagittal and coronal reformatted images were obtained on the technologist's workstation. Oral contrast: Yes This CT examination was performed using dose optimization techniques as appropriate, variously including the following: *Automated exposure control *Adjustment of mA and/or kV according to patient size (this includes techniques or standardized protocols for targeted exams where dose is matched to indication/reason for exam; i.e. extremities or head) *Use of iterative reconstruction technique DLP: 322 mGy-cm FINDINGS: LUNG BASES: There is focal right lower lobe increased groundglass attenuation, clustered peribronchial nodules and bronchial wall thickening. This may represent an infectious or inflammatory process. LIVER, GALLBLADDER, AND BILIARY TREE: The liver is normal in size, shape, and attenuation. Small 1 cm low-attenuation liver lesion in the right lobe the liver probably representing a cyst axial image 19 series 3. Benign-appearing calcification adjacent to the high left lobe the liver near the hepatic venous confluence. No biliary ductal dilatation is present. The gallbladder is unremarkable with no evidence of radiopaque gallstones, gallbladder wall thickening, or obvious pericholecystic inflammatory changes. PANCREAS: Unremarkable. SPLEEN: Unremarkable. ADRENAL GLANDS: Unremarkable. KIDNEYS AND URETERS: The kidneys are normal in size, shape, and attenuation. No hydronephrosis, hydroureter. Bilateral renal cysts. No imaging follow-up recommended. Bilateral renal calcifications probably representing vascular calcifications. BLADDER: Unremarkable. GASTROINTESTINAL TRACT: There is stool throughout the colon questionable for mild constipation. Small and large bowel is otherwise normal. The appendix is normal. The stomach is normal. ABDOMINAL WALL: No significant hernia is appreciated. LYMPH NODES: Normal. VASCULAR: Atherosclerotic disease. Postsurgical changes to the left groin. Focal dilatation of the common femoral artery and proximal SFA measuring 2 cm. PELVIC VISCERA: Unremarkable. OSSEOUS STRUCTURES: Degenerative changes of the spine and hip joints. CT/CT abdomen pelvis w IV con IMPRESSION: Stool throughout the colon questionable for mild constipation. No evidence of obstruction. Appendix small and large bowel are otherwise normal. Probable infectious or inflammatory changes in the right lower lobe. Small liver cyst. Fleischner guidelines were followed.
[2023-01-24] MEDS: iohexoL 350 MG/ML 100 ML INFUS..BTL IV (10:51)
== END 2023-01-24 07:56 | disposition home or self-care (01) ==
LOC: HO.CT 07:55
PROVIDERS: PCP Internal Medicine; Visit Provider Internal Medicine
DX: R10.31 Right lower quadrant pain (principal)
CPT/HCPCS: 74177; Q9967

== ENCOUNTER 2023-03-03 09:03 | Outpatient (AMB) | payer MEDICARE, SELFPAY ==
[2023-03-03 09:05] VITALS: BP 145/80; PULSE 107; BMI 22.7
--- NOTE | 2023-03-03 09:05 | MHC.OFFVIS ---
Intake Vital Signs 03/03/23 09:05 Height 5 ft 11 in Weight 163 lb BMI 22.7 BP 145/80 H Blood Pressure Location Rt brachial Position Sitting Pulse 107 H Intake Visit Reasons: F/u anal fistula Intake Note: This patient presents for a follow-up assessment for seton. Patient c/o; reports no new issues or complaints at this time. Shuffle Board Operator Required: No Accompanied by: Self / Same As Patient Allergies pollen extracts [POLLEN] Allergy (Intermediate, Verified 03/03/23 09:13) Sneezing ibuprofen [From Advil] Allergy (Verified 03/03/23 09:13) Swelling Medication List - Last Reconciled 03/03/23 by Horace Spicer MD alprazolam 0.25 mg PO BID PRN 30 days atorvastatin 80 mg PO DAILY 90 days azithromycin (Zithromax) For 250 mg dose pack: take 500 mg today (day 1), then 250 mg for 4 days (days 2-5) PO cholecalciferol (vitamin D3) (Vitamin D3) 25 mcg PO DAILY clopidogrel (Plavix) 75 mg PO DAILY fexofenadine 180 mg PO DAILY ibuprofen 200 mg PO Q12H PRN tramadol 50 mg PO Q8H PRN 90 days trazodone 100 mg PO BEDTIME 90 days triamcinolone acetonide (Nasacort Allergy) 2 sprays intranasal DAILY HPI F/u anal fistula HPI Details Here for follow-up for his anal fistula with a seton in place. I had been tightening this and I had not seen him since June 2022 as he said he has had been busy with some other health issues including back surgery He denies any new complaints. He denies any significant pain or any new sinuses. [facility] Medical History Screening for abdominal aortic aneurysm Cold virus COVID-19 vaccine series completed Anal fistula Insomnia Impaired glucose tolerance Peripheral neuropathy Lumbar degenerative disc disease Erectile dysfunction Allergic rhinitis Mixed hyperlipidemia Back pain Anxiety Anemia Urethral stricture Viral pneumonia Peripheral vascular disease Surgical History History of surgery (03/03/21) Hx of sinus surgery Hx of colonoscopy S/P femoral-popliteal bypass surgery H/O arterial bypass of lower limb Family History Father Medical history unknown Mother Medical history unknown Social History Housing: House Alcohol intake: never Patient Tobacco Use Status: Former Tobacco user Quit Date: 2011 Tobacco use type: Cigarette Years Smoked: quit 2009 e-Cigarette/Vaping Use: Never Used Second Hand Smoke Exposure: Yes service: No Current occupational status: employed Cognitive needs: No Hearing needs: No Vision needs: Yes Review of Systems Const Denies chills and Denies fever(s) Card Denies chest pain, Denies dyspnea and Denies dyspnea on exertion Resp Denies cough, Denies dyspnea and Denies dyspnea on exertion GI Denies hematochezia and Denies change in bowel habits Denies hematuria and Denies difficulty urinating Musc Reports back pain and Denies limited range of motion Neuro Denies focal weakness and Denies convulsions Psych Denies depression and Denies mood swings Physical Exam Vital Signs: Last Vital Signs Pulse 107 H 03/03/23 09:05 BP 145/80 H 03/03/23 09:05 BMI result Body Mass Index 22.7 Const General: comfortable and no acute distress Resp Effort & Inspection: normal respiratory effort GI Other: Rectal exam shows the seton to be in place but with a very short tract, no new sinuses, no swelling or induration Assessment & Plan Assessment & Plan (1) Anal fistula: Comment: Dr. Spicer 10/2020 Code(s): K60.3 - Anal fistula Plan: I removed this seton today. The residual tract had been very short and the seton itself was very tight around this. I told him that there is a low risk of recurrence. I told him that he should back to the office if he notices any symptoms down the line. Coding Level of Care Code Est Pt Level 2 (63545) Diagnoses Anal fistula K60.3
== END 2023-03-03 09:23 | disposition home or self-care (01) ==
PROVIDERS: PCP Internal Medicine; Visit Provider Surgery
DX: K60.3 Anal fistula (principal)
CPT/HCPCS: 99212

== ENCOUNTER → 2023-03-03 09:03 | Outpatient (BNVA) | payer MEDICARE, SELFPAY | PROVIDERS: PCP Internal Medicine; Visit Provider Surgery | DX: K60.3 Anal fistula (principal) | CPT/HCPCS: 99212 ==

== ENCOUNTER 2023-05-18 14:58 | Outpatient (AMB) | payer MEDICARE, SELFPAY ==
--- NOTE | 2023-05-18 14:59 | MHC.PC.OV ---
Intake Visit Reasons: cold with bad cough Allergies pollen extracts [POLLEN] Allergy (Intermediate, Verified 05/18/23 14:59) Sneezing ibuprofen [From Advil] Allergy (Verified 05/18/23 14:59) Swelling Tobacco use date assessed: 05/18/23 Fall risk assessment: No Falls in past year Last assessed Fall Risk: 05/18/23 HPI cold with bad cough HPI Details 68-year-old male with hypercholesterolemia peripheral vascular disease generalized anxiety disorder coming in through Telehealth for an acute problem. Patient follows up with the surgeon for the anal fistula had a CT scan of the right lower quadrant pain showing constipation mild. 3 weeks ago - sneeze, getting worse - fevers started, - went to a family wake- after - , myalgia, running nose , ear ache, hoarness, odd sensation on nasal area, greenish discharge PFSH Medical History Screening for abdominal aortic aneurysm Cold virus COVID-19 vaccine series completed Anal fistula Insomnia Impaired glucose tolerance Peripheral neuropathy Lumbar degenerative disc disease Erectile dysfunction Allergic rhinitis Mixed hyperlipidemia Back pain Anxiety Anemia Urethral stricture Viral pneumonia Peripheral vascular disease Surgical History History of surgery (03/03/21) Hx of sinus surgery Hx of colonoscopy S/P femoral-popliteal bypass surgery H/O arterial bypass of lower limb Family History Father Medical history unknown Mother Medical history unknown Social History Housing: House Alcohol intake: never Patient Tobacco Use Status: Former Tobacco user Quit Date: 2011 Tobacco use type: Cigarette Years Smoked: quit 2009 e-Cigarette/Vaping Use: Never Used Second Hand Smoke Exposure: Yes service: No Current occupational status: employed Cognitive needs: No Hearing needs: No Vision needs: Yes Questionnaire Thrive Questionnaire Date Thrive assessed: 09/10/22 AUDIT C Alcohol Use Questionnaire (AUDIT-C) 1. How often do you have a drink containing alcohol?: Never 3. How often do you have six or more drinks on one occasion?: Never Total Score: 0 HÉCTOR-7 AMB Questionnaire HÉCTOR-7 Date HÉCTOR - 7 assessed: 06/07/22 Source: Developed by Drs. Michael L. Kait Rebollar Kurt Kroenke and colleagues, with an educational faustino from [employer]. Physical exam (Primary Care) Tobacco/Smoking Status: Tobacco use Status Tobacco use date assessed 05/18/23 05/18/23 15:00 Patient Tobacco Use Status Former Tobacco user 05/18/23 15:00 Tobacco use type Cigarette 05/18/23 15:00 e-Cigarette/Vaping Use Never Used 05/18/23 15:00 Thrive Assessment: Date of Thrive Assessment Date Thrive assessed 09/10/22 05/18/23 15:00 Telehealth Telehealth Location of provider rendering services: practice address Location of patient: address on file Patient Identification confirmed using: Name, : Yes Telehealth method: video ([phone]) Patient verbally consented to treatment: Yes Patient verbally consented to billing insurance company: Yes Patient informed of any privacy concerns related to visit: Yes Minutes spent on Phone/Video with Pt.: 15 Assessment and Plan Assessment & Plan (1) Nasal congestion: Code(s): R09.81 - Nasal congestion Plan: has been using saline rinse and on nasacort, advised continue, increase oral fluids and antibiotics sent. Medications: New doxycycline hyclate 100 mg PO BID 14 caps 0RF R09.81 - Nasal congestion Coding Level of Care Code Tele Est Pt Level 3 (92959) Diagnoses Nasal congestion R09.81
== END 2023-05-18 15:40 | disposition home or self-care (01) ==
LOC: HO.HMGH 14:58
PROVIDERS: PCP Internal Medicine; Visit Provider Internal Medicine
DX: R09.81 Nasal congestion (principal)
CPT/HCPCS: 99213

== ENCOUNTER 2023-05-27 10:58 | Outpatient (AMB) | payer MEDICARE, SELFPAY ==
--- NOTE | 2023-05-27 11:01 | MHC.PC.OV ---
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: No Allergies pollen extracts [POLLEN] Allergy (Intermediate, Verified 05/27/23 11:02) Sneezing ibuprofen [From Advil] Allergy (Verified 05/27/23 11:02) Swelling Tobacco use date assessed: 05/27/23 Fall risk assessment: No Falls in past year Last assessed Fall Risk: 05/27/23 Dental Screening Dental Screen Date: 05/27/23 Did you have a dental visit in the last 12 months?: Yes Did you have a dental problem in the last 6 months where you did not have access to dental care?: No Was dental information given to patient?: Patient has dentist HPI 3 month f/u (closest time available) HPI Details 68-year-old male with a history of hypercholesterolemia lumbar degenerative disc disease generalized anxiety disorder impaired glucose tolerance coming in for follow-up last spoken with through Telehealth May 18 for nasal congestion. Patient is here for follow-up. Patient did have COVID and flu vaccine February 2023 followed up by good surgeon for the anal fistula have a seton in place. Had a CT scan done of the abdomen and pelvis in December 2022 showing constipation. Doxycycline given for nasal congestionj R ear pain sore throat, 2 months ago tucking in dog blanket then had bent L 3rd finger. concern L 3rd finger DIP mild redness concern of sleep apnea- sleeps on watching - tired, no having problem with car , live by himself, , has afternoon nap, , no sleepy after [facility] Medical History (Updated 05/27/23 @ 11:52 by Maverick Quezada MD) Screening for abdominal aortic aneurysm Cold virus COVID-19 vaccine series completed Anal fistula Insomnia Impaired glucose tolerance Peripheral neuropathy Lumbar degenerative disc disease Erectile dysfunction Allergic rhinitis Mixed hyperlipidemia Back pain Anxiety Anemia Urethral stricture Viral pneumonia Peripheral vascular disease Surgical History History of surgery (03/03/21) Hx of sinus surgery Hx of colonoscopy S/P femoral-popliteal bypass surgery H/O arterial bypass of lower limb Family History Father Medical history unknown Mother Medical history unknown Social History (Reviewed 03/03/23 @ 09: by Horace Spicer MD) Housing: House Alcohol intake: never Patient Tobacco Use Status: Former Tobacco user Quit Date: 2011 Tobacco use type: Cigarette Years Smoked: quit 2009 e-Cigarette/Vaping Use: Never Used Second Hand Smoke Exposure: Yes service: No Current occupational status: employed Cognitive needs: No Hearing needs: No Vision needs: Yes Questionnaire Thrive Questionnaire Date Thrive assessed: 09/10/22 AUDIT C Alcohol Use Questionnaire (AUDIT-C) 1. How often do you have a drink containing alcohol?: Never 3. How often do you have six or more drinks on one occasion?: Never Total Score: 0 HÉCTOR-7 AMB Questionnaire HÉCTOR-7 Date HÉCTOR - 7 assessed: 06/07/22 Source: Developed by Drs. Michael Rebollar, Kait Cooper, Abelardo Ruby and colleagues, with an educational faustino from [employer]. Physical exam (Primary Care) Vital Signs: Last Vital Signs Pulse 86 05/27/23 11:02 BP 142/80 H 05/27/23 11:02 Pulse Ox 99 05/27/23 11:02 Oxygen Delivery Method Room Air 05/27/23 11:02 BMI result Body Mass Index 23.7 Tobacco/Smoking Status: Tobacco use Status Tobacco use date assessed 05/27/23 05/27/23 11:03 Patient Tobacco Use Status Former Tobacco user 05/27/23 11:03 Tobacco use type Cigarette 05/27/23 11:03 e-Cigarette/Vaping Use Never Used 05/27/23 11:03 Thrive Assessment: Date of Thrive Assessment Date Thrive assessed 09/10/22 05/27/23 11:03 Const General: alert; No acute distress Eyes Conjunctivae: conjunctivae normal Resp Auscultation: clear to auscultation bilaterally Cardio Rate: regular rate Rhythm: regular rhythm GI Inspection: Yes normal to inspection Extrem General: Yes normal to inspection and No edema Assessment and Plan Assessment & Plan (1) Impaired glucose tolerance: Code(s): R73.02 - Impaired glucose tolerance (oral) Plan: Decrease the amount of carbohydrate intake, pasta, bread, rice and potatoes are all sugar and that is aside from all the sweet stuff, remember that fruits are good but they are Sweet also. (2) Mixed hyperlipidemia: Code(s): E78.2 - Mixed hyperlipidemia Plan: Avoid fried foods, chicken skin, eggs, butter margarine, pastries and meat. Be it pork or beef they have a lot of cholesterol LDL goal of less than 130 and triglyceride of less than 150 patient on atorvastatin 80 mg once a day (3) Anal fistula: Comment: Dr. Spicer 10/2020 Code(s): K60.3 - Anal fistula Plan: Patient being followed up by the surgeon (4) Generalized anxiety disorder: Code(s): F41.1 - Generalized anxiety disorder Plan: Continue with present medication (5) Nasal congestion: Code(s): R09.81 - Nasal congestion (6) Insomnia: Code(s): G47.00 - Insomnia, unspecified (7) Finger pain, left: Code(s): M79.645 - Pain in left finger(s) (8) Hypersomnia: Code(s): G47.10 - Hypersomnia, unspecified Orders: Orders XR finger LT min 2V Today M79.645 - Pain in left finger(s) RT home sleep study Today G47.10 - Hypersomnia, unspecified Medications: New prednisone 4 tabs QD x 2 days then 3 tabs QD x 2 days then 2 tabs Qd x 2 days then 1 tab QD x 2 days PO daily; 20 tabs 0RF J45.909 - Unspecified asthma, uncomplicated, R09.81 - Nasal congestion amoxicillin-pot clavulanate 875-125 mg 1 tab PO BID 20 tabs 0RF R09.81 - Nasal congestion Coding Level of Care Code Est Pt Level 4 (28278) Diagnoses Impaired glucose tolerance R73.02 Mixed hyperlipidemia E78.2 Anal fistula K60.3 Generalized anxiety disorder F41.1 Nasal congestion R09.81 Insomnia G47.00 Finger pain, left M79.645 Hypersomnia G47.10
[2023-05-27 11:02] VITALS: BP 142/80; PULSE 86; O2SAT 99; BMI 23.7
== END 2023-05-27 11:59 | disposition home or self-care (01) ==
PROVIDERS: PCP Internal Medicine; Visit Provider Internal Medicine
DX: R73.02 Impaired glucose tolerance (oral) (principal); E78.2 Mixed hyperlipidemia; K60.3 Anal fistula; F41.1 Generalized anxiety disorder; R09.81 Nasal congestion; G47.00 Insomnia, unspecified; M79.645 Pain in left finger(s); G47.10 Hypersomnia, unspecified
CPT/HCPCS: 99214

== ENCOUNTER 2023-06-04 17:01 | Emergency (ER) | payer MEDICARE, SELFPAY ==
[2023-06-04 18:14] VITALS: BP 136/99; PULSE 94; RESP 18; TEMP 36.6; O2SAT 97; BMI 23.0
--- NOTE | 2023-06-04 19:32 | ED.GENADULT ---
HPI - General Adult General Chief complaint: Skin/Abscess/Foreign Body Stated complaint: ? med struck in throat Time Seen by Provider: 06/04/23 19:28 Source: patient and family Mode of arrival: ambulatory Limitations: no limitations History of Present Illness HPI narrative: this is a 68-year-old male with a history of high cholesterol, PVD on plavix who presents to the ER with complaints of feeling like a pill is stuck in his throat since 09:30. Patient reports he took a allergy medication unknown name at 09:30 and since then he has a sensation that the pill is stuck in his throat and he cannot tolerate any oral liquids without vomiting. Patient reports that he has had some difficulty with swallowing over the years and had upper GI series approximately 1 year ago as well as an endoscopy a [facility]. He is unaware of the results. He denies any abdominal pain, chest pain, difficulty breathing, fevers or chills. Of note, patient did complete a 7 day course of doxycyline/prednisone end of April. Denies history of esophagitis. Related Data Home Medications Medication Instructions Recorded Confirmed cholecalciferol (vitamin D3) 25 25 mcg PO DAILY 04/07/20 03/03/23 mcg (1,000 unit) capsule (Vitamin D3) ibuprofen 200 mg tablet 200 mg PO Q12H PRN 06/07/22 03/03/23 Previous Rx's Medication Instructions Recorded alprazolam 0.25 mg tablet 0.25 mg PO BID PRN Anxiety 30 days 07/29/20 #50 tabs fexofenadine 180 mg tablet 180 mg PO DAILY #90 tabs 03/05/22 triamcinolone acetonide 55 mcg 2 spray intranasal DAILY #16.9 mL 03/05/22 nasal spray aerosol (Nasacort Allergy) atorvastatin 80 mg tablet 80 mg PO DAILY 90 days #90 tabs 09/09/22 trazodone 100 mg tablet 100 mg PO BEDTIME 90 days #90 tabs 12/17/22 clopidogrel 75 mg tablet (Plavix) 75 mg PO DAILY #90 tabs 01/07/23 tramadol 50 mg tablet 50 mg PO Q8H PRN Pain 90 days #270 01/12/23 tabs amoxicillin 875 mg-potassium 1 tab PO BID #20 tabs 05/27/23 clavulanate 125 mg tablet prednisone 10 mg tablet See Rx Instructions PO DAILY #20 05/27/23 tabs Allergies Allergy/AdvReac Type Severity Reaction Status Date / Time pollen extracts [POLLEN] Allergy Intermediate Sneezing Verified 06/04/23 18:14 ibuprofen [From Advil] Allergy Swelling Verified 06/04/23 18:14 Review of Systems Review of Systems: Yes all other systems are reviewed and are negative Constitutional: Constitutional: Reports no additional constitutional complaints, Denies body ache(s), Denies chills, Denies fever(s), Denies headache(s) and Denies weakness Eyes: Eyes: Reports no additional eye complaints and Denies change in vision ENT: Reports system reviewed and no additional complaints, except as documented, Reports dysphagia, Denies dizziness, Denies headache(s), Denies nasal congestion, Denies nasal discharge and Denies neck pain Cardiovascular: Cardiovascular: Reports no additional cardiovascular complaints, Denies chest pain, Denies leg edema and Denies dyspnea Respiratory: Respiratory: Reports no additional respiratory complaints, Denies cough and Denies dyspnea Gastrointestinal: Gastrointestinal: Reports no additional gastrointestinal complaints, Denies abdominal pain, Reports dysphagia, Denies diarrhea, Reports nausea and Reports vomiting Genitourinary: Genitourinary: Denies urinary incontinence Musculoskeletal: Musculoskeletal: Reports no additional musculoskeletal complaints, Denies back pain, Denies arthralgias, Denies joint swelling, Denies neck pain, Denies numbness and Denies tingling Integumentary/Breasts: Skin/Breast: Reports system reviewed and no additional complaints, except as docu and Denies rash Neurologic: Reports system reviewed and no additional complaints, except as documented, Denies Abnormal speech present, Denies dizziness, Denies headache(s), Denies numbness, Denies tingling and Denies weakness [facility] Past Medical History Attestation statement: The following information was validated with the patient. Source: old records reviewed and nursing notes reviewed Onset Date is defined in the Problem List Problems that require an onset date and time if occurred within 24 hrs of arrival to the ED Aortic Dissection and Rupture; Neurologic impairment; Cardiopulmonary Arrest; Endotracheal Intubation; Insertion or Replacement of Mechanical Circulatory Assist Device Medical History Screening for abdominal aortic aneurysm Cold virus COVID-19 vaccine series completed Anal fistula Insomnia Impaired glucose tolerance Peripheral neuropathy Lumbar degenerative disc disease Erectile dysfunction Allergic rhinitis Mixed hyperlipidemia Back pain Anxiety Anemia Urethral stricture Viral pneumonia Peripheral vascular disease Surgical History History of surgery (03/03/21) Hx of sinus surgery Hx of colonoscopy S/P femoral-popliteal bypass surgery H/O arterial bypass of lower limb Family History Family History Father Medical history unknown Mother Medical history unknown Social History Social History Housing: House Alcohol intake: never Patient Tobacco Use Status: Former Tobacco user Quit Date: 2011 Tobacco use type: Cigarette Years Smoked: quit 2009 e-Cigarette/Vaping Use: Never Used Second Hand Smoke Exposure: Yes Advance Directives: No Advance Directives Information Provided: No service: No Current occupational status: employed Cognitive needs: No Hearing needs: No Vision needs: Yes Physical Exam ED Vital Signs: Vital Signs - 24 hr 06/04/23 18:14 Temperature 97.8 F Pulse Rate 94 Respiratory Rate 18 Blood Pressure 136/99 H Pulse Oximetry 97 Oxygen Delivery Method Room Air BMI result Body Mass Index 23.0 Const General: cooperative, healthy appearing, comfortable and no acute distress Orientation/consciousness: patient oriented x3 Limitations: no limitations HENMT Head: Yes normal to inspection Ears: hearing grossly normal bilaterally General nose exam: Normal external nose present Face and sinus: Yes normal facial exam Mouth: Normal oral and palatal mucosa present Throat: Yes posterior oropharynx normal Eyes General: appearance normal, both eyes and all related structures Pupils: Equal, round and reactive pupils present Neck Neck: Yes normal visual inspection Chest Chest palpation & inspection: normal inspection of the chest Resp Effort & Inspection: normal respiratory effort Auscultation: clear to auscultation bilaterally Cardio Rate: regular rate Rhythm: regular rhythm Peripheral pulses: Peripheral pulses 2+ throughout GI Other: +vomiting clear liquids in the room Inspection: Yes normal to inspection Palpation (GI): Soft to palpation and nontender Auscultation: normal bowel sounds Back/Spine/Pelvis Thoracic/Lumbar Spine: thoracic and lumbar spine normal to inspection Skin General skin exam: no rashes or lesions noted Neuro General: patient oriented x3, no focal motor deficits and normal sensation to monofilament Cranial nerves: Yes Equal, round and reactive pupils present Cognition (Neuro): normal cognition Speech: No Abnormal speech present Gait exam (Neuro): Normal gait present Motor exam (neuro): 5/5 motor strength present throughout Extrem General: Yes normal to inspection Course Reevaluation(s) Reevaluation #1: 2130-Patient drank 8 ounces of genaro angela. Feels much improved. No additional vomiting episodes. Will discharge home and follow-up with GI outpatient. His sodium, potassium and anion gap are pending but he feels well, tolerating PO, non toxic appearing and I expect them to be benign Reviewed worrisome signs/symptoms with patient and when to seek additional care. Comfortable with discharge home. Medications Administered Discontinued Medications Generic Name Dose Route Start Last Admin Trade Name Cici PRN Reason Stop Dose Admin Glucagon 1 mg 06/04/23 19:30 06/04/23 20:23 Glucagon Hcl 1 Mg Vial IVPUSH 06/04/23 19:31 1 mg ONCE ONE Administration Sodium Chloride 1,000 mls @ 999 mls/hr 06/04/23 19:27 06/04/23 20:18 Ns IV 06/04/23 20:27 999 mls/hr .Q1H1M STA Administration Ondansetron HCl 4 mg 06/04/23 19:27 06/04/23 20:22 Ondansetron Hcl 4 Mg/2 Ml Vial IVPUSH 06/04/23 19:28 4 mg ONCE ONE Administration Medical Decision Making Medical Decision Making MDM Narrative: this is a 68-year-old male with a history of high cholesterol, PVD on plavix who presents to the ER with complaints of feeling like a pill is stuck in his throat since :. Patient reports he took a allergy medication unknown name at :30 and since then he has a sensation that the pill is stuck in his throat and he cannot tolerate any oral liquids without vomiting. Patient reports that he has had some difficulty with swallowing over the years and had upper GI series approximately 1 year ago as well as an endoscopy a [facility]. He is unaware of the results. He denies any abdominal pain, chest pain, difficulty breathing, fevers or chills. Of note, patient did complete a 7 day course of doxycyline/prednisone end of April. Denies history of esophagitis. Vomiting clear liquids in the room. VSS NO focal abdominal pain, LS CTA Will obtain labs, place PIV, IVF, antiemetic, and 1mg glucagon IV Differential Diagnosis Differential Diagnoses: The differential diagnosis associated with the presentation includes food impaction, esophagitis Admission/Observation Consideration of admission/observation: Escalation of care including admission/observation considered labs are unremarkable. Patient is now tolerating genaro angela with no additional vomiting episodes after receiving glucagon. Can go home and follow-up with GI outpatient Lab Data MDM Lab Attestation statement: I reviewed the patient's lab results. unremarkable 06/04/23 20:17 06/04/23 20:17 Labs: Lab Results 06/04/23 Range/Units 20:17 WBC 8.7 (4.8-10.8) X10*3/uL RBC 5.02 (4.60-5.80) X10*6/uL Hgb 13.4 L (14.0-18.0) g/dl Hct 41.9 L (42.0-52.0) % MCV 83.5 (80.0-98.0) fL MCH 26.7 L (27.0-33.0) pg MCHC 32.0 (31.0-36.0) g/dl RDW 14.0 (11.0-16.0) % Plt Count 307 (160-400) X10*3/uL MPV 8.4 L (9.4-12.4) fL Immature Gran % (Auto) 0.2 (0.0-0.4) % Neut % (Auto) 77.1 H (45-73) % Lymph % (Auto) 14.3 L (20-40) % [place] % (Auto) 6.3 (2-11) % Eos % (Auto) 1.5 (0-4) % Baso % (Auto) 0.6 (0-2) % Lymph # (Auto) 1.2 (1.2-4.9) X10*3/uL [place] # (Auto) 0.6 (0.1-1.2) X10*3/uL Eos # (Auto) 0.1 (0.0-0.4) X10*3/uL Baso # (Auto) 0.1 (0.0-0.2) X10*3/uL Abs Immat Gran (auto) 0.02 (0.00-0.03) X10*3/uL Absolute Neuts (auto) 6.7 (2.0-8.3) x10*3/uL Absolute Nucleated RBC 0.000 (0.0-0.012) X10*3/uL Nucleated RBC % (auto) 0.0 (0.0-0.2) /100WBC Carbon Dioxide 27 (22-29) mmol/L BUN 13 (9-16) mg/dL Creatinine 0.68 (0.5-1.4) mg/dL Estim Creat Clear Calc 113.1 Estimated GFR > 60 Random Glucose 94 (60-115) mg/dL Calcium 10.0 (8.4-10.2) mg/dL Total Bilirubin 0.4 (0.0-1.0) mg/dL Direct Bilirubin 0.1 (0.0-0.5) mg/dL AST 21 (5-37) U/L ALT 20 (0-40) U/L Alkaline Phosphatase 107 (39-117) U/L Total Protein 7.7 (6.5-8.0) g/dL Albumin 4.4 (3.5-5.0) g/dL Independent Historian Clinical information obtained from an independent historian. History obtained from or confirmed by: Friend Tests considered The following testing was considered but not selected: Ct soft tissue neck Discharge Plan Discharge Clinical Impression: Impacted esophageal foreign body Patient Disposition: Home, Self-Care Instructions: Esophageal Foreign Body (ED) Additional Instructions: Start with clear liquids then advance diet as tolerated Soft foods and chopped foods in very small pieces Follow-up with GI Return for worsening symptoms Prescriptions: No Action atorvastatin 80 mg tablet 80 mg PO DAILY 90 Days Qty: 90 2RF trazodone 100 mg tablet 100 mg PO BEDTIME 90 Days Qty: 90 2RF clopidogrel [Plavix] 75 mg tablet 75 mg PO DAILY Qty: 90 2RF tramadol 50 mg tablet 50 mg PO Q8H PRN (Reason: Pain) 90 Days Qty: 270 1RF cholecalciferol (vitamin D3) [Vitamin D3] 25 mcg (1,000 unit) Capsule 25 mcg PO DAILY alprazolam 0.25 mg tablet 0.25 mg PO BID PRN (Reason: Anxiety) 30 Days Qty: 50 0RF ibuprofen 200 mg tablet 200 mg PO Q12H PRN fexofenadine 180 mg tablet 180 mg PO DAILY Qty: 90 3RF triamcinolone acetonide [Nasacort Allergy] 55 mcg aerosol,spray 2 spray intranasal DAILY Qty: 16.9 12RF Rx Instructions: administer into each nostril prednisone 10 mg tablet See Rx Instructions PO DAILY Qty: 20 0RF Rx Instructions: 4 tabs QD x 2 days then 3 tabs QD x 2 days then 2 tabs Qd x 2 days then 1 tab QD x 2 days PO daily; amoxicillin-pot clavulanate 875-125 mg tablet 1 tab PO BID Qty: 20 0RF Referrals: Alivia Larson MD [Physician] - 1 week
[2023-06-04 20:42] LABS: Alanine Aminotransferase 20 U/L (0-40); Albumin Level 4.4 g/dL (3.5-5.0); Alkaline Phosphatase 107 U/L (39-117); Aspartate Amino Transferase 21 U/L (5-37); Bilirubin Direct 0.1 mg/dL (0.0-0.5); Bilirubin Total 0.4 mg/dL (0.0-1.0); Blood Urea Nitrogen 13 mg/dL (9-16); Carbon Dioxide 27 mmol/L (22-29); Creatinine Clr Calc Pharmacy 113.1; Estimated Glomerular Filt Rate > 60; Glucose Random 94 mg/dL (60-115); Total Protein 7.7 g/dL (6.5-8.0)
--- NOTE | 2023-06-04 21:47 | PC.NURSE ---
Patient able to drink feels much better instructed to advanced diet slowly.
[2023-06-04 22:26] LABS: Anion Gap 15 (12-20); Chloride 105 mmol/L (96-108); Potassium 4.3 mmol/L (3.3-5.1); Sodium 140 mmol/L (135-145)
== END 2023-06-04 21:48 | disposition home or self-care (01) ==
PROVIDERS: Nurse Practitioner Family; Emergency Provider Emergency Medicine; PCP Internal Medicine
DX: T18.198A Other foreign object in esophagus causing other injury, initial encounter (principal); W44.8XXA Other foreign body entering into or through a natural orifice, initial encounter; E78.2 Mixed hyperlipidemia; Z79.02 Long term (current) use of antithrombotics/antiplatelets; Z87.891 Personal history of nicotine dependence; Y93.89 Activity, other specified; Y92.019 Unspecified place in single-family (private) house as the place of occurrence of the external cause; Y99.9 Unspecified external cause status
CPT/HCPCS: 36415; 80048; 80076; 85025; 96374; 96375; 99283; 99284; J1610; J2405

== ENCOUNTER → 2023-07-11 10:58 | Outpatient (REF) | payer MEDICARE, SELFPAY | LOC: HO.SL 10:58 | PROVIDERS: PCP Internal Medicine; Visit Provider Internal Medicine | DX: G47.10 Hypersomnia, unspecified (principal) | CPT/HCPCS: 95806 ==

== ENCOUNTER → 2023-07-11 11:15 | Outpatient (BNV) | payer MEDICARE, SELFPAY | PROVIDERS: PCP Internal Medicine; Visit Provider Internal Medicine | DX: G47.10 Hypersomnia, unspecified (principal) | CPT/HCPCS: 95806 ==

== ENCOUNTER 2024-01-10 08:30 | Outpatient (AMB) | payer MEDICARE, SELFPAY ==
--- NOTE | 2024-01-10 08:35 | A.OFFPC_ITS ---
Vital Signs 01/10/24 08:36 Height 5 ft 9 in Weight 171 lb BMI 25.2 BP 140/80 H Blood Pressure Location Lt brachial Position Sitting Pulse 87 Pulse Source Pulse Oximeter Pulse Oximetry (%) 98 Oxygen Delivery Method Room Air Intake Visit Reasons: hypersomnia, nasal congestion Intake Note: Difficulty swallowing. Allergies pollen extracts [POLLEN] Allergy (Intermediate, Verified 01/10/24 08:36) Sneezing ibuprofen [From Advil] Allergy (Verified 01/10/24 08:36) Swelling Tobacco use date assessed: 01/10/24 Fall risk assessment: No Falls in past year Last assessed Fall Risk: 01/10/24 Dental Screening Dental Screen Date: 01/10/24 Did you have a dental visit in the last 12 months?: Yes Did you have a dental problem in the last 6 months where you did not have access to dental care?: No Was dental information given to patient?: Patient has dentist HPI hypersomnia, nasal congestion HPI Details 68-year-old male with a history of impai red glucose tolerance hypercholesterolemia generalized anxiety disorder last seen in 05/18/2023. Patient is up-to-date with colonoscopy and EGD last done in 03/2020. Review of the notes had a sleep study done in June 2023 revealing negative for sleep apnea. In May 2023 ER visit for dysphagia feeling like something stuck on the throat. Patient was given glucagon and ondansetron. eats too fast and recent had teeth . scalp rash wants dermatology. for the back - s/p surgery and seeing chiropractor 3 weeks ago was advise to hold off therapy. will start with xray lumbar PFSH Medical History Screening for abdominal aortic aneurysm Cold virus COVID-19 vaccine series completed Anal fistula Insomnia Impaired glucose tolerance Peripheral neuropathy Lumbar degenerative disc disease Erectile dysfunction Allergic rhinitis Mixed hyperlipidemia Back pain Anxiety Anemia Urethral stricture Viral pneumonia Peripheral vascular disease Surgical History History of surgery (03/03/21) Hx of sinus surgery Hx of colonoscopy S/P femoral-popliteal bypass surgery H/O arterial bypass of lower limb Family History Father Medical history unknown Mother Medical history unknown Social History Housing: House Alcohol intake: never Patient Tobacco Use Status: Former Tobacco user Tobacco use type: Cigarette Years Smoked: quit 2009 e-Cigarette/Vaping Use: Never Used Second Hand Smoke Exposure: Yes service: No Current occupational status: employed Cognitive needs: No Hearing needs: No Vision needs: Yes Questionnaire PHQ-9 Over the last 2 weeks, how often have you been bothered by any of the following problems? 1. Little interest or pleasure in doing things: not at all 2. Feeling down, depressed, or hopeless: several days 3. Trouble falling or staying asleep, or sleeping too much: not at all 4. Feeling tired or having little energy: not at all 5. Poor appetite or overeating: not at all 6. Feeling bad about yourself - or that you are a failure or have let yourself or your family down: not at all 7. Trouble concentrating on things, such as reading the newspaper or watching television: not at all 8. Moving or speaking so slowly that other people could have noticed. Or the opposite - being so fidgety or restless that you have been moving around a lot more than usual: not at all 9. Thoughts that you would be better off or of hurting yourself in some way: not at all Total score: 1 Depression Screening Interpretation: Negative Depression Screening Done: Yes Source: Developed by Drs. Michael Rebollar, Kait Cooper, Abelardo Ruby and colleagues, with an educational faustino from [employer]. Thrive Questionnaire Date Thrive assessed: 01/10/24 I am a: Patient What is your living situation today?: I have a steady place to live Within the past 12 months, did the food you bought not last and you didn't have the money to get more?: Never true Within the past 12 months, did you worry whether your food would run out before you got money to buy more?: Never true Do you have trouble paying for medicines?: No Do you have trouble getting transportation to medical appointments?: No Do you have trouble paying your heating and electricity bill?: No Do you have trouble taking care of your child, family member or friend?: No Do you have trouble with day-to-day activities such as bathing, preparing meals, shopping, managing finances, etc.?: No Are you currently unemployed and looking for a job?: No Are you interested in more education?: No Currently or been in a relationship where the following occur: No concerns reported THRIVE Score: 0 AUDIT C Alcohol Use Questionnaire (AUDIT-C) 1. How often do you have a drink containing alcohol?: Never 3. How often do you have six or more drinks on one occasion?: Never Total Score: 0 HÉCTOR-7 AMB Questionnaire HÉCTOR-7 Date HÉCTOR - 7 assessed: 01/10/24 Feeling nervous, anxious, or on edge: 1 = Several days Not being able to stop or control worryin = Not at all Worrying too much about different things: 0 = Not at all Trouble relaxin = Not at all Being so restless that it is hard to sit still: 0 = Not at all Becoming easily annoyed or irritable: 0 = Not at all Feeling afraid as if something awful might happen: 0 = Not at all Total HÉCTOR-7 score (0-4 normal; 5-9 mild; 10-14 moderate; 15-21 severe): 1 Source: Developed by Drs. Michael Rebollar, Kait Cooper, Abelardo Ruby and colleagues, with an educational faustino from [employer]. Physical exam (Primary Care) Vital Signs: Last Vital Signs Pulse 87 01/10/24 08:36 BP 140/80 H 01/10/24 08:36 Pulse Ox 98 01/10/24 08:36 Oxygen Delivery Method Room Air 01/10/24 08:36 BMI result Body Mass Index 25.2 Tobacco/Smoking Status: Tobacco use Status Tobacco use date assessed 01/10/24 01/10/24 08:38 Patient Tobacco Use Status Former Tobacco user 01/10/24 08:38 Tobacco use type Cigarette 01/10/24 08:38 e-Cigarette/Vaping Use Never Used 01/10/24 08:38 PHQ-9: PHQ-9 Score PHQ-9: Total score 1 01/10/24 08:42 Depression Screening Interpretation: Negative Thrive Assessment: Date of Thrive Assessment Date Thrive assessed 01/10/24 01/10/24 08:38 Currently or been in a relationship where the following occur: No concerns reported Const General: alert; No acute distress Eyes Conjunctivae: conjunctivae normal Resp Auscultation: clear to auscultation bilaterally Cardio Rate: regular rate Rhythm: regular rhythm GI Inspection: Yes normal to inspection Extrem General: Yes normal to inspection and No edema Assessment and Plan Assessment & Plan (1) Mixed hyperlipidemia: Code(s): E78.2 - Mixed hyperlipidemia Plan: Avoid fried foods, chicken skin, eggs, butter margarine, pastries and meat. Be it pork or beef they have a lot of cholesterol LDL goal of less than 130 and triglyceride of less than 150. Patient is on atorvastatin (2) Impaired glucose tolerance: Code(s): R73.02 - Impaired glucose tolerance (oral) Plan: Decrease the amount of carbohydrate intake, pasta, bread, rice and potatoes are all sugar and that is aside from all the sweet stuff, remember that fruits are good but they are Sweet also. (3) Generalized anxiety disorder: Code(s): F41.1 - Generalized anxiety disorder Plan: Continue with alprazolam as needed and trazodone (4) Dysphagia: Code(s): R13.10 - Dysphagia, unspecified Plan: Discussed about options of getting gastroenterology involved. (5) Peripheral vascular disease: Comment: 2001 - left femoral to popliteal bypass with RSVG 2005 - revision of left femoral to popliteal bypass with vein Code(s): I73.9 - Peripheral vascular disease, unspecified Plan: Continue with plavix and When sitting down elevate the legs, exercise, and support stockings (6) Lumbar degenerative disc disease: Comment: steroid injection 02/19/2021 L4-L5 decompression bilateral Dr. Knight Ar 10/01/2022 for lumbar stenosis with radiculopathy/neurogenic claudication Code(s): M51.36 - Other intervertebral disc degeneration, lumbar region Plan: Continue keeping active. (7) Actinic keratosis: Code(s): L57.0 - Actinic keratosis Orders: Orders FL barium swallow Today R13.10 - Dysphagia, unspecified FL upper GI series Today R13.10 - Dysphagia, unspecified Thyroid Stimulating Hormone Today R73.02 - Impaired glucose tolerance (oral) Lipid Panel Today E78.00 - Pure hypercholesterolemia, unspecified, E78.2 - Mixed hyperlipidemia Vitamin B12 and Folate Today E78.2 - Mixed hyperlipidemia XR lumbar spine 4V min Today M51.36 - Other intervertebral disc degeneration, lumbar region Hemoglobin A1c Today R73.02 - Impaired glucose tolerance (oral) Free T4 (Free Thyroxine) Today R73.02 - Impaired glucose tolerance (oral) Comprehensive Met. Panel Today R73.02 - Impaired glucose tolerance (oral) Complete Blood Count Auto Diff Today E78.2 - Mixed hyperlipidemia Prostate Specific Antigen Scr Today E78.2 - Mixed hyperlipidemia Referrals Dermatology Referral L57.0 - Actinic keratosis Medications: Refilled tramadol 50 mg PO Q8H 90 days PRN 270 tabs 1RF Pain G62.9 - Polyneuropathy, unspecified, M51.36 - Other intervertebral disc degeneration, lumbar region trazodone 100 mg PO BEDTIME 90 days 90 tabs 2RF R10.31 - Right lower quadrant pain Coding Level of Care Code Est Pt Level 4 (14876) Diagnoses Mixed hyperlipidemia E78.2 Impaired glucose tolerance R73.02 Generalized anxiety disorder F41.1 Dysphagia R13.10 Peripheral vascular disease I73.9 Lumbar degenerative disc disease M51.36 Actinic keratosis L57.0
[2024-01-10 08:36] VITALS: BP 140/80; PULSE 87; O2SAT 98; BMI 25.2
== END 2024-01-10 09:21 | disposition home or self-care (01) ==
PROVIDERS: PCP Internal Medicine; Visit Provider Internal Medicine
DX: E78.2 Mixed hyperlipidemia (principal); R73.02 Impaired glucose tolerance (oral); F41.1 Generalized anxiety disorder; R13.10 Dysphagia, unspecified; I73.9 Peripheral vascular disease, unspecified; M51.36 Other intervertebral disc degeneration, lumbar region; L57.0 Actinic keratosis
CPT/HCPCS: 99214

== ENCOUNTER 2024-03-26 08:50 | Outpatient (REF) | payer MEDICARE, SELFPAY ==
--- NOTE | ~2024-03-26 | FL_ITS ---
EXAMINATION: XR FLUOROSCOPY UPPER GI WITH AIR CLINICAL INFORMATION: Dysphagia COMPARISON: None TECHNIQUE: Fluoroscopic air contrast upper GI examination was performed utilizing standard techniques with thin and thick barium and effervescent granules. Numerous spot images were obtained. FINDINGS: There are moderate degenerative disc changes C5-6 and C6-7 incidentally noted. Lateral cine images of the oropharynx and hypopharynx demonstrate normal swallow mechanism with normal epiglottic inversion and soft palate elevation. Trace laryngeal penetration is seen with thick and thin consistency barium. No tracheal penetration, glottic or subglottic aspiration identified. No nasopharyngeal reflux present. Hypopharyngeal structures appear normal without evidence of mass or diverticulum. There was no significant cricopharyngeal achalasia. Dual and single contrast images of the esophagus demonstrate normal caliber, contour, and mucosal pattern. No masses or ulcerations are seen. There is mild focal short segment narrowing of the GE junction. This has an appearance most suggestive of mild achalasia. Esophageal peristalsis is moderately disorganized. A very small type I hiatal hernia is present. No significant gastroesophageal reflux was seen during the course of the examination and on reflux views. Dual contrast and single contrast images of the stomach demonstrated a normal contour. The gastric rugal folds have a thickened appearance, suggestive of gastritis. There are multiple tiny foci of contrast pooling in the fundus and body of the stomach that may represent small aphthous ulcers. No masses are seen. Contrast freely passed into the gastric antrum and duodenal bulb without delay. Single and air-contrast images of the duodenal bulb demonstrate no abnormality. The duodenal sweep has a normal appearance, course, and mucosal fold appearance. The imaged proximal jejunum has a normal fold pattern and caliber. FLUOROSCOPY TIME: 4 minutes 10 seconds Number of Spot Images: 8 Number of Cine: 15 DOSE AREA PRODUCT: 1813 uGy-m2 (microgray-meter squared) FL/FL upper GI w air w Ba Swallow IMPRESSION: 1. Trace laryngeal penetration with thick and thin consistency barium. 2. Esophageal dysmotility. 3. Mild narrowing of the GE junction that likely represents mild achalasia. A benign stricture cannot be ruled out. Recommend correlation with EGD. 4. Thickened appearance the gastric rugal folds. In addition there are multiple tiny foci of contrast pooling in the fundus and body of the stomach. These findings are suggestive of erosive gastritis. Recommend correlation with EGD. 5. Very small type I hiatal hernia. This procedure was performed by Simba Harvey PA-C, and supervised by Dr. Leal Electronically signed by: Jose Leal MD 03/26/2024 01:49 PM EDT
== END 2024-03-26 08:51 | disposition home or self-care (01) ==
LOC: HO.XRAY 08:50
PROVIDERS: PCP Internal Medicine; Visit Provider Internal Medicine
DX: R13.10 Dysphagia, unspecified (principal)
CPT/HCPCS: 74246

== ENCOUNTER → 2024-03-26 08:52 | Outpatient (BNV) | payer MEDICARE, SELFPAY | PROVIDERS: PCP Internal Medicine; Visit Provider Physician Assistant Surgical | DX: R13.10 Dysphagia, unspecified (principal) | CPT/HCPCS: 74246 ==

== ENCOUNTER 2024-05-02 09:18 | Day surgery (SDC) | payer MEDICARE, SELFPAY ==
[2024-04-30 14:55] VITALS: BMI 23.6
[2024-05-02 10:14] VITALS: BMI 23.3
[2024-05-02 10:16] VITALS: BP 124/77; PULSE 76; RESP 15; TEMP 36.7; O2SAT 98
--- NOTE | 2024-05-02 10:45 | HO.ANESPROP2 ---
Documented by User: Emily Arredondo NP 05/01/24 12:15 HPI - Anesthesia Eval Consult details Narrative: 69yo M for Upper Endoscopy with Balloon Dilitation Plavix for PVD PMFSH Active Problems Active Problems: All Active Problems Erosive gastritis (Acute) Actinic keratosis (Acute) Dysphagia (Acute) Hypersomnia (Acute) Finger pain, left (Acute) Nasal congestion (Acute) RLQ abdominal pain (Acute) Right inguinal pain (Acute) Mass of left axilla (Acute) COVID-19 virus infection (Acute) Annual physical exam (Acute) Naevus unius lateris (Acute) Tachycardia (Acute) Sinusitis (Acute) Generalized anxiety disorder (Acute) Annual physical exam (Acute) Sebaceous cyst (Acute) Gastritis (Acute) Insomnia (Acute) Anal fistula (Acute) Anemia (Acute) Impaired glucose tolerance (Acute) Peripheral neuropathy (Acute) Lumbar degenerative disc disease (Acute) Anxiety (Acute) Erectile dysfunction (Acute) Allergic rhinitis (Acute) Mixed hyperlipidemia (Acute) Peripheral vascular disease (Acute) Past Medical History Medical History Screening for abdominal aortic aneurysm Anal fistula Insomnia Impaired glucose tolerance Peripheral neuropathy Lumbar degenerative disc disease Erectile dysfunction Allergic rhinitis Mixed hyperlipidemia Back pain Anxiety Anemia Urethral stricture Viral pneumonia Peripheral vascular disease Family History Family History Father Medical history unknown Mother Medical history unknown Family history of problems with anesthesia: No Surgical History Surgical History (Updated 05/02/24 @ 10:12 by Gayle Duncan RN) History of back surgery History of esophagogastroduodenoscopy (EGD) History of surgery (03/03/21) Hx of sinus surgery Hx of colonoscopy S/P femoral-popliteal bypass surgery H/O arterial bypass of lower limb History of Problems with Anesthesia: No Social History Social History Housing: House Alcohol intake: never Patient Tobacco Use Status: Former Tobacco user Tobacco use type: Cigarette Years Smoked: quit 2009 e-Cigarette/Vaping Use: Never Used Second Hand Smoke Exposure: Yes Use of substances other than those prescribed or required for medical reasons: No Are you DNR?: No Advance Directives: No Advance Directives Information Provided: Yes Recently lost weight without trying: No service: No Current occupational status: employed Cognitive needs: No Hearing needs: No Vision needs: Yes Meds Allergies Allergy/AdvReac Type Severity Reaction Status Date / Time pollen extracts [POLLEN] Allergy Intermediate Sneezing Verified 05/02/24 10:13 Home Medications ?Medication ?Instructions ?Recorded ?Confirmed ?Last Taken ?Type cholecalciferol (vitamin D3) 25 25 mcg PO DAILY 04/07/20 04/30/24 04/11/20 04:00 History mcg (1,000 unit) capsule (Vitamin D3) ibuprofen 200 mg tablet 200 mg PO Q12H PRN Pain 06/07/22 04/30/24 Unknown History Exam Height,Weight and Vital Signs: Height 5 ft 11 in Weight 76.657 kg Assessment and Plan Assessment Anesthesia Assessment: Chart Reviewed Final Anesthetic Review Family History of Problems with Anesthesia: No History of Problems with Anesthesia: No Documented by User: Gayle Hicks DO 05/02/24 11:19 PMF Past Medical History Medical History Screening for abdominal aortic aneurysm Anal fistula Insomnia Impaired glucose tolerance Peripheral neuropathy Lumbar degenerative disc disease Erectile dysfunction Allergic rhinitis Mixed hyperlipidemia Back pain Anxiety Anemia Urethral stricture Viral pneumonia Peripheral vascular disease Family History Family History Father Medical history unknown Mother Medical history unknown Family history of problems with anesthesia: No Surgical History Surgical History (Updated 05/02/24 @ 10:12 by Gayle Duncan RN) History of back surgery History of esophagogastroduodenoscopy (EGD) History of surgery (03/03/21) Hx of sinus surgery Hx of colonoscopy S/P femoral-popliteal bypass surgery H/O arterial bypass of lower limb History of Problems with Anesthesia: No Social History Social History Housing: House Alcohol intake: never Patient Tobacco Use Status: Former Tobacco user Tobacco use type: Cigarette Years Smoked: quit 2009 e-Cigarette/Vaping Use: Never Used Second Hand Smoke Exposure: Yes Use of substances other than those prescribed or required for medical reasons: No Are you DNR?: No Advance Directives: No Advance Directives Information Provided: Yes Recently lost weight without trying: No service: No Current occupational status: employed Cognitive needs: No Hearing needs: No Vision needs: Yes Meds Allergies Allergy/AdvReac Type Severity Reaction Status Date / Time pollen extracts [POLLEN] Allergy Intermediate Sneezing Verified 05/02/24 10:13 Home Medications ?Medication ?Instructions ?Recorded ?Confirmed ?Last Taken ?Type cholecalciferol (vitamin D3) 25 25 mcg PO DAILY 04/07/20 04/30/24 04/11/20 04:00 History mcg (1,000 unit) capsule (Vitamin D3) ibuprofen 200 mg tablet 200 mg PO Q12H PRN Pain 06/07/22 04/30/24 Unknown History Exam Exam Date and Time: 05/02/24 1045 Height,Weight and Vital Signs: Height 5 ft 11 in Weight 76.657 kg Vital Signs Temperature 98.1 F 05/02/24 10:16 Pulse Rate 76 05/02/24 10:16 Respiratory Rate 15 05/02/24 10:16 Blood Pressure 124/77 05/02/24 10:16 Pulse Oximetry 98 05/02/24 10:16 Oxygen Delivery Method Room Air 05/02/24 10:16 Temperature 98.1 F 05/02/24 10:16 Pulse Rate 76 05/02/24 10:16 Respiratory Rate 15 05/02/24 10:16 Blood Pressure 124/77 05/02/24 10:16 Pulse Oximetry 98 05/02/24 10:16 Oxygen Delivery Method Room Air 05/02/24 10:16 Airway Mallampati Class: I TM Dist: >3cm Neck ROM: Full Loose/Missing/Broken Teeth: No (patient denies any loose or broken teeth) Heart: S1S2 Lungs: CTAB Assessment and Plan Assessment Anesthesia Assessment: Anesthesia Plan Discussed and Chart Reviewed Final Anesthetic Review Family History of Problems with Anesthesia: No History of Problems with Anesthesia: No NPO: Yes ASA Class: II Final Preanesthetic Review: No Changes in Pt Med Stat, Meds/Allgs Chart Reviewed, Consent Obtained/Reviewed and Anes Risks/Benef Reviewed Patient Risk: Low Procedure Risk: Low Anesthetic Plan Anesthetic Plan: MAC: and Agree w/ Assess. and Plan Disposition: Standard PACU
[2024-05-02 11:16] VITALS: BP 104/64; PULSE 86; RESP 15; TEMP 36.3; O2SAT 97
--- NOTE | 2024-05-02 11:27 | P.BOP_ITS ---
Brief Operative Note Date of Service: 05/02/24 Pre-op diagnosis: Dysphagia Post-op diagnosis: other (Hiatal hernia) Procedure: EGD with Balloon dilation of the EG Junction with an 18mm balloon Surgeon: Michael Mcdonough MD Anesthesia: MAC Was an Residential Door Installer used for this Procedure?: No Estimated blood loss (mL): 2.0 Pathology: none sent Condition: stable Disposition: PACU
[2024-05-02 11:54] VITALS: BP 119/77; PULSE 81; RESP 16; TEMP 36.4; O2SAT 98
--- NOTE | 2024-05-02 12:08 | OP_ITS ---
DATE OF SERVICE: 05/02/2024 SURGEON: Michael Mcdonough MD PREOPERATIVE DIAGNOSIS: Dysphagia and abnormal barium swallow. POSTOPERATIVE DIAGNOSIS: PROCEDURE PERFORMED: Esophagogastroduodenoscopy with balloon dilation of gastroesophageal junction. Full consent has been obtained from him for this, including risks of bleeding and perforation. ESTIMATED BLOOD LOSS: COMPLICATIONS: ANESTHESIA: Monitored anesthesia care. ASSISTANTS: SPECIMENS: POSTOPERATIVE DIAGNOSES: Dysphagia and abnormal barium swallow, small hiatal hernia. DESCRIPTION OF PROCEDURE: The patient was placed in the left lateral decubitus position. The Olympus video gastroscope was passed in the posterior oropharynx and upper esophagus under direct vision. The scope was passed slowly to the distal esophagus. The gastroesophageal junction appeared at 38 cm. There was no evidence of any esophagitis nor Blanton's esophagus. The scope easily entered the stomach past the gastroesophageal junction. Although, as the scope entered the stomach, there was some heme noted at the EG junction itself. There was no definitive ring nor stricture noted beforehand, however. The scope was advanced to the pylorus, and the duodenum was cannulated to the descending portion. The duodenum including the bulb appeared normal without mass or ulceration. The scope was withdrawn back into the stomach. The gastric antrum and body appeared normal with good peristalsis. Scope was retroflexed visualizing the proximal stomach carefully, which appeared normal, without any sign of mass or ulceration. Scope was straightened and withdrawn back to the esophagus. With insufflation of air, I did not appreciate any definitive narrowing at the gastroesophageal junction, but there was heme noted right at the EG junction from where the scope entered. I did use a [employer] incremental balloon to dilate the gastroesophageal junction to 18 mm at the recommended pressure for 60 seconds. Post dilation, there was more heme noted and there was some disruption of the EG junction noted as well. Therefore no further dilatation was performed. The scope was withdrawn through the remainder of the esophagus, which appeared normal. There was no evidence of any proximal esophageal rings. The scope was withdrawn from the patient. He tolerated the procedure well and was returned to the recovery area in stable condition. IMPRESSION: Small hiatal hernia, question of distal esophageal ring, status-post balloon dilation. PLAN: The patient will continue his PPI. At this point, he will see me as needed, but was advised to certainly call if he has any recurrent symptoms of dysphagia or other GI issues. He was advised to resume his Plavix in 48 hours as his last dose had been on April 29. He was advised not to use any aspirin, NSAIDs, nor fish oil for at least 1 week. MD TAMIA Arzola/RACHEL / [phone] MTDD
--- OUTSIDE RECORDS SUMMARY | 2024-05-08 17:03 | XMS_ITS ---
Author Organization [facility] Address [address] [place] [phone] Care Team Providers Care Hepatology Physician Name Role Phone Po Maverick TORRES Primary Care Provider Michael Clayton [phone] ALLERGIES No Known Allergies MEDICATIONS Medication SIG (Take, Route, Frequency, Duration) Notes Start Date End Date Status Omeprazole 20 MG 1 capsule 30 minutes before morning meal Orally Once a day Not-Taking Fish Oil 1000 MG 1 capsule Orally Twi ce a day Not-Taking Vitamin D 25 MCG (1000 UT) 1 tablet Orally Once a day for 30 day(s) Not-Taking Fexofenadine HCl 180 MG TAKE 1 TABLET BY MOUTH EVERY DAY NEEDED Oral for 90 Not-Taking Vitamin C 500 MG as directed Orally Not-Taking Atorvastatin Calcium 80 MG 1 tablet Orally Once a day for 30 day(s) Active Fenofibrate 160 MG 1 tablet Orally Once a day for 30 day(s) Active Nasonex 50 MCG/ACT 2 sprays in each nostril Nasally Once a day for 30 day(s) Active Multivitamin Adult - as directed Orally Active Niaspan 500 MG 3 tablet in am and 3 tablets at bedtime Orally twice a day Active Cialis 20 MG 1 tablet Orally for 30 day(s) Active traMADol HCl 50 MG (Schedule IV Drug) T PALLAVI 1 TABLET BY MOUTH THREE TIMES A DAY Oral for 90 Active Plavix 75 MG 1 tablet Orally Once a day for 30 day(s) Active traZODone HCl 100 MG TAKE 1 TABLET BY MO UTH AT BEDTIME NEEDED Oral for 90 Active ALPRAZolam 0.25 MG (Schedule IV Drug) T PALLAVI 1 TABLET BY MOUTH TWICE A DAY NEEDED Oral for 30 Active SOCIAL HISTORY Tobacco Use: Social History Observation Description Date Details (start date - stop date) Former Smoker NA - NA Sex Assigned At : Social History Observation Description Sex Assigned At Unknown Tobacco Use/Smoking Question Answer Notes Patient is a former smoker How long has it been since you last smoked? > 10 years Alcohol Screen Question Answer Notes Did you have a drink contain ing alcohol in the past year? Yes How often did you have a dri nk containing alcohol in the past year? Never (0 point) How many drinks did you have on a typical day when you were drinking in the past year? 1 or 2 drinks (0 point) How often did you have 6 or more drinks on one occasion in the past year? Never (0 point) Points 0 Interpretation Negative PROBLEMS Problem Type ICD Code Onset Dates Problem Status W/U Status Risk SNOMED Code Notes Problem Dysphagia (R13.10) Active confirmed Dys phagia (03024648) Problem Abnormal upper gastrointestinal barium series (R93.3) Active confirmed VITAL SIGNS BMI 23.57 kg/m2 04/03/2024 Blood pressure systolic 00 mm Hg 04/03/20 24 Blood pressure diastolic 00 mm Hg 024 Height 71 in 04/03/2024 Weight 169 lbs 04/03/2024 Encounters Encounter Location Date Provider Diagnosis [facility] [address] [facility] [address] [place] [phone] 04/03/2024 Michael Mcdonough Dysphagia R13.10 and Abnormal upper gastrointestinal barium series R93.3 ASSESSMENTS Encounter Date Diagnosis Assessment Notes Treatment Notes Treatment Clinical Notes 04/03/2024 Dysphagia (ICD-10 - R13.10) Stop Plavix for 5 days before the upper endoscopy Stop fish oil 1 week before the upper endoscopy 04/03/2024 Abnormal upper gastrointestinal barium series (ICD-10 - R93.3) PLAN OF TREATMENT Treatment Notes Assessment Notes Dysphagia Stop Plavix for 5 days before the upper endoscopy Stop fish oil 1 week before the upper endoscopy Future Test Test Name Order Date UPPER GI ENDOSCOPY BALLOOON DILATION OF ESOPH 04/03/2024 Next Appt Details Follow Up: prn, Reason: Progress Notes * Examination Category Sub-Category Detail Notes General Examination GENERAL APPEARANCE: pleasant , well nourished, well developed, in no acute distress HEAD: EYES: sclera non-icteric EARS: NOSE: THROAT: NECK/THYROID: no cervical lymphade nopathy, neck supple HEART: S1, S2 normal CHEST: LUNGS: clear to auscultatio n bilaterally ABDOMEN: normal bowel sounds, no guarding or rigidity, no guarding or rigidity, no masses palpable, soft, nontender, nondistended NEUROLOGIC: alert and oriented SKIN: nonjaundiced, no spi nidhi angiomata EXTREMITIES: no edema PERIPHERAL PULSES: BACK: BREASTS: MUSCULOSKELETAL: MALE GENITOURINARY: LYMPH NODES: RECTAL EXAM: FEMALE GENITOURINARY: ORAL CAVITY: mucosa moist
--- OUTSIDE RECORDS SUMMARY | 2024-05-08 17:03 | XMS_ITS ---
Author Organization [facility] Address [address] [place] [address] Care Team Providers Care Accounting Representative Name Role Phone Po Maverick TORRES Primary Care Provider Michael Clayton [phone] REASON FOR VISIT dysphagia,abn ugi barium series Encounters Encounter Location Date Provider Diagnosis [facility] Outpatient [address] [place] [id number] 05/02/2024 Michael Mcdonough PLAN OF TREATMENT No Information
--- OUTSIDE RECORDS SUMMARY | 2024-05-08 17:03 | XMS_ITS | Patient Health Record ---
Author Organization [facility] Address [address] [place] [phone] Care Team Providers Care Casino Cashier Manager Name Role Phone Maverick Quezada MD Primary Care Provider Michael Clayton [phone] ALLERGIES No Known Allergies REASON FOR REFERRAL No Information MEDICATIONS Medication SIG (Take, Route, Frequency, Duration) Notes Start Date End Date Status traMADol HCl 50 MG (Schedule IV Drug) T PALLAIV 1 TABLET BY MOUTH THREE TIMES A DAY Oral for 90 Active Vitamin D 25 MCG (1000 UT) 1 tablet Orally Once a day for 30 day(s) Not-Taking Plavix 75 MG 1 tablet Orally Once a day for 30 day(s) Active Fexofenadine HCl 180 MG TAKE 1 TABLET BY MOUTH EVERY DAY NEEDED Oral for 90 Not-Taking traZODone HCl 100 MG TAKE 1 TABLET BY MO UTH AT BEDTIME NEEDED Oral for 90 Active ALPRAZolam 0.25 MG (Schedule IV Drug) T PALLAVI 1 TABLET BY MOUTH TWICE A DAY NEEDED Oral for 30 Active Vitamin C 500 MG as directed Orally Not-Taking Cialis 20 MG 1 tablet Orally for 30 day(s) Active Omeprazole 20 MG 1 capsule 30 minutes before morning meal Orally Once a day Not-Taking Atorvastatin Calcium 80 MG 1 tablet Orally Once a day for 30 day(s) Active Fenofibrate 160 MG 1 tablet Orally Once a day for 30 day(s) Active Nasonex 50 MCG/ACT 2 sprays in each nostril Nasally Once a day for 30 day(s) Active Multivitamin Adult - as directed Orally Active Fish Oil 1000 MG 1 capsule Orally Twi ce a day Not-Taking Niaspan 500 MG 3 tablet in am and 3 tablets at bedtime Orally twice a day Active IMMUNIZATIONS Vaccine Route Administration Date Status Comme nts Influenza Unknown 01/28/2019 Administered Influenza Unknown 02/28/2020 Administered SOCIAL HISTORY Tobacco Use: Social History Observation [...] W/U Status Risk SNOMED Code Notes Problem Encounter for screening for malignant neoplasm of colon (Z12.11) Active confirmed 391836546 Problem Preprocedural examination (Z01.818) Active confirmed [id number] Problem Anemia, unspecified type (D64.9) Active confirmed 335163385 Problem Gastritis, chronic (K29.50) Active confirmed Chronic gastrit is (8226856) Problem Iron deficiency anemia (D50.9) Active confirmed Iron deficien cy anemia (29742738) Problem Dysphagia (R13.10) Active confirmed Dys phagia (10732951) Problem Abnormal upper gastrointestinal barium series (R93.3) Active confirmed VITAL SIGNS Blood pressure diastolic 00 mm Hg 04/03/2024 Height 71 in 04/03/2024 Blood pressure systolic 00 mm Hg 04/03/2024 Weight 169 lbs 04/03/2024 BMI 23.57 kg/m2 04/03/2024 Encounters Encounter Location Date Provider Diagnosis [facility] Outpatient [address] [place], [place] [phone] 05/02/2024 Michael Mcdonough [facility] [address] [place] [address] 04/03/2024 Michael Mcdonough Dysphagia R13.10 and Abnormal upper gastrointestinal barium series R93.3 ASSESSMENTS Encounter Date Diagnosis Assessment Notes Treatment Notes Treatment Clinical Notes 04/03/2024 Dysphagia (ICD-10 - R13.10) Stop Plavix for 5 days before the upper endoscopy Stop fish oil 1 week before the upper endoscopy 04/03/2024 Abnormal upper gastrointestinal barium series (ICD-10 - R93.3) PLAN OF TREATMENT Pending Test Test Name Order Date IRON + IBC (FE) 07/29/2020 FERRITIN 07/29/2020 CBC w DIFF 07/29/2020 Future Test Test Name Order Date COLONOSCOPY 02/22/2020 UPPER GI ENDOSCOPY BALLOOON DILATION OF ESOPH 04/03/2024 Insurance Providers Payer Name Payer Address Payer Phone Subscriber Number Group Number Insured Name Patient Relationship to Insured Coverage Start Date Coverage End Date MEDICARE OF [place] [address] [place] [address] [id number] INO GREER Self - patient is the insured MEDEX ATTN CLAIMS [address] [place] [address] [phone] [id number] INO GREER Self - patient is the insured MEDICAL (GENERAL) HISTORY Medical History History ICD Code Denies [place],DM,CVA,Lung disease,renal dise ase Anxiety and depression Neg screening colonoscopy in 03/2009 Pneumonia with intubation 2011 Hyperlipidemia Peripheral vascular disease Anemia--chronic--normal B12 and Folate l evels in 11/2019 Iron deficiency anemia with low iron saturation but normal ferritin in January of 2020-negative colonoscopy in March 2020; upper endoscopy in March 2020 revealed some gastritis, but biopsies were negative for H. pylori and duodenal biopsies were negative for celiac disease --he had been using some ibuprofen along with his Plavix at that time Surgical History Surgery Date(Month/Year) Left LE bypass 2006 Sinus surgery Urethral stricture Back Surgery in 2022-Dr. Watkins at [facility]
== END 2024-05-02 12:32 | disposition home or self-care (01) ==
PROVIDERS: PCP Internal Medicine; Visit Provider Internal Medicine
PROC: (CPT 43249; principal; 2024-05-02 10:30)
DX: R13.10 Dysphagia, unspecified (principal); K44.9 Diaphragmatic hernia without obstruction or gangrene; E78.5 Hyperlipidemia, unspecified; I73.9 Peripheral vascular disease, unspecified; F41.8 Other specified anxiety disorders; D50.9 Iron deficiency anemia, unspecified; Z79.02 Long term (current) use of antithrombotics/antiplatelets; Z79.899 Other long term (current) drug therapy; Z98.890 Other specified postprocedural states; Z87.891 Personal history of nicotine dependence
CPT/HCPCS: 43249; C1726; J2003; J2704

== ENCOUNTER 2024-05-04 09:26 | Outpatient (AMB) | payer MEDICARE, SELFPAY ==
--- NOTE | 2024-05-04 09:33 | A.OFFPC_ITS ---
Vital Signs 05/04/24 09:34 Height 5 ft 11 in Weight 171 lb BMI 23.8 BP 118/72 Blood Pressure Location Lt brachial Position Sitting Pulse 92 Pulse Source Pulse Oximeter Pulse Oximetry (%) 95 Oxygen Delivery Method Room Air Intake Visit Reasons: low back pain, Allergies pollen extracts [POLLEN] Allergy (Intermediate, Verified 05/04/24 09:34) Sneezing Tobacco use date assessed: 05/04/24 Fall risk assessment: No Falls in past year Dental Screening Dental Screen Date: 01/10/24 HPI low back pain, HPI Details The patient is a 69-year-old male presenting with a chief concern of sinusitis with ear infection. He reports persistent sinus pressure and congestion characterized by green mucus discharge over a significant period. He has experienced chills but denies any significant fever. This sinus issue has worsened recently, with ear pain on the right side, specifically noting sharp pain and increased discomfort at night when lying on that side. The patient reports being on Guaifenesin and Sudafed for symptomatic relief. Additionally, he noticed a significant amount of earwax being discharged. There are no complaints of sore throat or shortness of breath. The patient follows up for management of various chronic conditions including hypercholesterolemia, impaired glucose tolerance, generalized anxiety disorder, peripheral vascular disease, and low bar degenerative disease. He noted some dental work including tooth extraction and adjustments due to recently fitted dentures, which may have influenced his mastication. The patient was recently treated with endoscopic dilation for a small esophageal stricture due to hiatal hernia found during an EGD. He continues to manage these issues with pantoprazole, especially mindful of interactions with his current blood thinner, clopidogrel. He denies any occurrences of diarrhea and reports stable urination patterns, although noting some variations in frequency potentially influenced by recently managed back pain and chiropractic interventions. [facility] Medical History (Updated 05/04/24 @ 09:58 by Maverick Quezada MD) Screening for abdominal aortic aneurysm Anal fistula Insomnia Impaired glucose tolerance Peripheral neuropathy Lumbar degenerative disc disease Erectile dysfunction Allergic rhinitis Mixed hyperlipidemia Back pain Anxiety Anemia Urethral stricture Viral pneumonia Peripheral vascular disease Surgical History (Updated 05/02/24 @ 10:12 by Gayle Duncan RN) History of back surgery History of esophagogastroduodenoscopy (EGD) History of surgery (03/03/21) Hx of sinus surgery Hx of colonoscopy S/P femoral-popliteal bypass surgery H/O arterial bypass of lower limb Family History Father Medical history unknown Mother Medical history unknown Social History Housing: House Alcohol intake: never Patient Tobacco Use Status: Former Tobacco user Tobacco use type: Cigarette Years Smoked: quit 2009 e-Cigarette/Vaping Use: Never Used Second Hand Smoke Exposure: Yes service: No Current occupational status: employed Cognitive needs: No Hearing needs: No Vision needs: Yes Questionnaire PHQ-9 Over the last 2 weeks, how often have you been bothered by any of the following problems? 1. Little interest or pleasure in doing things: not at all 2. Feeling down, depressed, or hopeless: several days 3. Trouble falling or staying asleep, or sleeping too much: not at all 4. Feeling tired or having little energy: not at all 5. Poor appetite or overeating: not at all 6. Feeling bad about yourself - or that you are a failure or have let yourself or your family down: not at all 7. Trouble concentrating on things, such as reading the newspaper or watching television: not at all 8. Moving or speaking so slowly that other people could have noticed. Or the opposite - being so fidgety or restless that you have been moving around a lot more than usual: not at all 9. Thoughts that you would be better off or of hurting yourself in some way: not at all Total score: 1 Depression Screening Interpretation: Negative Depression Screening Done: Yes Source: Developed by Drs. Michael Rebollar, Abelardo Amaya and colleagues, with an educational faustino from [employer]. Thrive Questionnaire Date Thrive assessed: 01/10/24 AUDIT C Alcohol Use Questionnaire (AUDIT-C) 1. How often do you have a drink containing alcohol?: Never 3. How often do you have six or more drinks on one occasion?: Never Total Score: 0 HÉCTOR-7 AMB Questionnaire HÉCTOR-7 Date HÉCTOR - 7 assessed: 01/10/24 Source: Developed by Drs. Michael Rebollar, Abelardo Amaya and colleagues, with an educational faustino from [employer]. Physical exam (Primary Care) Vital Signs: Oxygen Delivery Method Room Air 05/04/24 09:34 BMI result Body Mass Index 23.8 Tobacco/Smoking Status: Tobacco use Status Tobacco use date assessed 01/10/24 01/10/24 08:38 Patient Tobacco Use Status Former Tobacco user 05/02/24 11:27 Tobacco use type Cigarette 01/10/24 08:38 e-Cigarette/Vaping Use Never Used 01/10/24 08:38 Depression Screening Interpretation: Negative Thrive Assessment: Date of Thrive Assessment Date Thrive assessed 01/10/24 01/10/24 08:38 Const General: alert; No acute distress Eyes Other: Noted right tragal tenderness and pulling of the pinna tender. TM intact no impacted cerumen as for the right side of the face has some rough 1 cm surface rash. Axillary exam was negative Conjunctivae: conjunctivae normal Resp Auscultation: clear to auscultation bilaterally Cardio Rate: regular rate Rhythm: regular rhythm GI Inspection: Yes normal to inspection Extrem General: Yes normal to inspection and No edema Coding Level of Care Code Est Pt Level 4 (43947) Diagnoses Erosive gastritis K29.60 Degeneration of intervertebral disc of lumbar region with discogenic back pain M51.360 Disc-related pain type: discogenic back pain only Mixed hyperlipidemia E78.2 Sinus congestion R09.81 Acute otitis externa of right ear, unspecified type H60.501 Otitis externa type: unspecified type Chronicity: acute Facial rash R21 Pain in right testicle N50.811 Mass of left axilla R22.32 Assessment & Plan Assessment & Plan (1) Erosive gastritis: Code(s): K29.60 - Other gastritis without bleeding Category: Medical Plan: Avoid the foods that causes that usually spicy foods, tomato products, juices, coffee, soda and foods that your sensitive to. After eating do not lie down, allow 3-4 hours before in lie down. And keep the head of bed above 30 degrees to avoid the acid from going up. (2) Lumbar degenerative disc disease: Comment: steroid injection 02/19/2021 L4-L5 decompression bilateral Dr. Eugene Watkins 10/01/2022 for lumbar stenosis with radiculopathy/neurogenic claudication Code(s): M51.36 - Other intervertebral disc degeneration, lumbar region Category: Medical Qualifiers: Disc-related pain type: discogenic back pain only Qualified Code(s): M51.360 - Other intervertebral disc degeneration, lumbar region with discogenic back pain only Plan: Stable presently (3) Mixed hyperlipidemia: Code(s): E78.2 - Mixed hyperlipidemia Category: Medical Plan: Avoid fried foods, chicken skin, eggs, butter margarine, pastries and meat. Be it pork or beef they have a lot of cholesterol on atorvastatin 80 mg once a day (4) Sinus congestion: Code(s): R09.81 - Nasal congestion Category: Medical Plan: will send in antibiotic (5) Otitis externa of right ear: Code(s): H60.91 - Unspecified otitis externa, right ear Category: Medical Qualifiers: Otitis externa type: unspecified type Chronicity: acute Qualified Code(s): H60.501 - Unspecified acute noninfective otitis externa, right ear Plan: will send in antibiotic ear drop (6) Facial rash: Code(s): R21 - Rash and other nonspecific skin eruption Category: Medical Plan: Referral to dermatology done (7) Pain in right testicle: Code(s): N50.811 - Right testicular pain Category: Medical Plan: for now monitor (8) Mass of left axilla: Code(s): R22.32 - Localized swelling, mass and lump, left upper limb Category: Medical Plan: ordered for the L axilla. Patient had this problem before although on physical exam today I did not feel any mass. Plan 1. Sinusitis with Ear Infection: - Prescribe ear drops containing an antibiotic for the right ear, with instructions on administration. 2. Hiatal Hernia with Esophageal Stricture: - Monitor response to dilation procedure performed on May 02, 2024. 3. General Health Maintenance: - Reinforce influenza vaccine management considering upcoming flu season. 4. Chronic Conditions Management: - Monitor any changes associated with generalized anxiety disorder and low bar degenerative disease. Ensure the patient follows up after completing the course of antibiotics for reassessment of sinus and ear symptoms and consider lifestyle modifications such as adequate hydration and avoidance of allergens as preventive measures. Orders: Orders US extremity nonvascular lopez Today R22.32 - Localized swelling, mass and lump, left upper limb Referrals Dermatology Referral R21 - Rash and other nonspecific skin eruption Medications: New cvbwhghy-aslmorxfi-CM 3.5-10,000-1 mg/mL-unit/mL-% 4 drps otic (ear) right Q8H 10 days 10 mL 0RF H60.501 - Unspecified acute noninfective otitis externa, right ear amoxicillin-pot clavulanate 500-125 mg 1 tab PO TID 7 days 21 tabs 0RF H60.501 - Unspecified acute noninfective otitis externa, right ear
[2024-05-04 09:34] VITALS: BP 118/72; PULSE 92; O2SAT 95; BMI 23.8
--- OUTSIDE RECORDS SUMMARY | 2024-05-09 06:56 | XMS_ITS ---
Author Organization [facility] Address [address] [place] [address] Care Team Providers Care Credentialing Specialist Name Role Phone Po Maverick TORRES Primary Care Provider Michael Clayton [phone] REASON FOR VISIT dysphagia,abn ugi barium series Encounters Encounter Location Date Provider Diagnosis [facility] Outpatient [address] [place] [id number] 05/02/2024 Michael Mcdonough PLAN OF TREATMENT No Information
--- OUTSIDE RECORDS SUMMARY | 2024-05-09 06:57 | XMS_ITS ---
Author Organization [facility] Address [address] [place] [phone] Care Team Providers Care Certified Bench Jeweler Technician Name Role Phone Po Maverick TORRES Primary Care Provider Micahel Clayton [phone] ALLERGIES No Known Allergies MEDICATIONS Medication SIG [...] Problem Dysphagia (R13.10) Active confirmed Dys phagia (22776670) Problem Abnormal upper gastrointestinal barium series (R93.3) Active confirmed VITAL SIGNS BMI 23.57 kg/m2 04/03/2024 Blood pressure systolic 00 mm Hg 04/03/20 24 Blood pressure diastolic 00 mm Hg 024 Height 71 in 04/03/2024 Weight 169 lbs 04/03/2024 Encounters Encounter Location Date Provider Diagnosis [facility] [address] [place] [phone] 04/03/2024 Michael Mcdonough Dysphagia R13.10 and Abnormal [...]
--- OUTSIDE RECORDS SUMMARY | 2024-05-09 06:57 | XMS_ITS | Patient Health Record ---
Author Organization [facility] Address [address] [place] [phone] Care Team Providers Care Camera Repairer Name Role Phone Maverick Quezada MD Primary Care Provider Michael Clayton [phone] ALLERGIES No Known Allergies REASON FOR REFERRAL [...] malignant neoplasm of colon (Z12.11) Active confirmed 521149617 Problem Preprocedural examination (Z01.818) Active confirmed [id number] Problem Anemia, unspecified type (D64.9) Active confirmed 958113765 Problem Gastritis, chronic (K29.50) Active confirmed Chronic gastrit is (5575346) Problem Iron deficiency anemia (D50.9) Active confirmed Iron deficien cy anemia (99975053) Problem Dysphagia (R13.10) Active confirmed Dys phagia (16507675) Problem Abnormal upper gastrointestinal barium series (R93.3) Active confirmed VITAL SIGNS Blood pressure diastolic 00 mm Hg 04/03/2024 Height 71 in 04/03/2024 Blood pressure systolic 00 mm Hg 04/03/2024 Weight 169 lbs 04/03/2024 BMI 23.57 kg/m2 04/03/2024 Encounters Encounter Location Date Provider Diagnosis [facility] Outpatient [address] [place], [place] [phone] 05/02/2024 Michael Mcdonough [facility] [address] [place] [address] 04/03/2024 Michael Mcdonough Dysphagia R13.10 and Abnormal [...] [place] [address] [place] [address] [id number] INO GREER Self - patient is the insured [employer] CLAIM[employer] [address] [place] [address] [id number] INO GREER Self - patient is the insured MEDICAL (GENERAL) HISTORY Medical History History ICD Code Denies CA,DM,CVA,Lung disease,renal dise ase Anxiety and depression Neg [...] stricture Back Surgery in 2022-Dr. Watkins at [facility]
== END 2024-05-04 10:01 | disposition home or self-care (01) ==
PROVIDERS: PCP Internal Medicine; Visit Provider Internal Medicine
DX: K29.60 Other gastritis without bleeding (principal); M51.360 Other intervertebral disc degeneration, lumbar region with discogenic back pain only; E78.2 Mixed hyperlipidemia; R09.81 Nasal congestion; H60.501 Unspecified acute noninfective otitis externa, right ear; R21 Rash and other nonspecific skin eruption; N50.811 Right testicular pain; R22.32 Localized swelling, mass and lump, left upper limb

== ENCOUNTER → 2024-05-04 09:26 | Outpatient (BNVA) | payer MEDICARE, SELFPAY | PROVIDERS: PCP Internal Medicine; Visit Provider Internal Medicine | DX: K29.60 Other gastritis without bleeding (principal); M51.360 Other intervertebral disc degeneration, lumbar region with discogenic back pain only; E78.2 Mixed hyperlipidemia; R09.81 Nasal congestion; H60.501 Unspecified acute noninfective otitis externa, right ear; R21 Rash and other nonspecific skin eruption; N50.811 Right testicular pain; R22.32 Localized swelling, mass and lump, left upper limb | CPT/HCPCS: 99212 ==

== ENCOUNTER 2024-05-16 12:50 | Outpatient (REF) | payer MEDICARE, SELFPAY ==
--- OUTSIDE RECORDS SUMMARY | 2024-05-16 12:55 | XMS_ITS ---
Author Organization [facility] Address [address] [place] [address] Care Team Providers Care Director Of Provider Relations Name Role Phone Po Maverick TORRES Primary Care Provider Michael Clayton [phone] REASON FOR VISIT dysphagia,abn ugi barium series Encounters Encounter Location Date Provider Diagnosis [facility] [place] [place] Outpatient [address] [place] [id number] 05/02/2024 Michael Mcdonough Other specified di sease of esophagus K22.89 ; Dysphagia R13.10 ; GI bleed K92.2 ; Hiatal hernia K44.[address] scan, esophagus R93.3 ASSESSMENTS Encounter Date Diagnosis Assessment Notes Treatment Notes Treatment Clinical Notes 05/02/2024 Other specified disease of esophagus (ICD-10 - K22.89) 05/02/2024 Dysphagia (ICD-10 - R13.10) 05/02/2024 GI bleed (ICD-10 - K92.2) 05/02/2024 Hiatal hernia (ICD-10 - K44.9) 05/02/[address] scan, esophagus (ICD-10 - R93.3) PLAN OF TREATMENT No Information
--- OUTSIDE RECORDS SUMMARY | 2024-05-16 12:55 | XMS_ITS ---
Author Organization [facility] Address [address] [place] [phone] Care Team Providers Care Architectural Manager Name Role Phone Po Maverick TORRES Primary Care Provider Michael Clayton [phone] ALLERGIES No Known Allergies MEDICATIONS Medication SIG [...] Problem Dysphagia (R13.10) Active confirmed Dys phagia (30003550) Problem Abnormal upper gastrointestinal barium series (R93.3) Active confirmed VITAL SIGNS BMI 23.57 kg/m2 04/03/2024 Blood pressure systolic 00 mm Hg 04/03/20 24 Blood pressure diastolic 00 mm Hg 024 Height 71 in 04/03/2024 Weight 169 lbs 04/03/2024 Encounters Encounter Location Date Provider Diagnosis [facility] [address] [facility] [address] [place] [phone] 04/03/2024 Michael Mcdonough Dysphagia R13.10 and Abnormal [...]
--- OUTSIDE RECORDS SUMMARY | 2024-05-16 12:55 | XMS_ITS | Patient Health Record ---
Author Organization [facility] Address [address] [place] [phone] Care Team Providers Care Luggage Repairer Name Role Phone Maverick Quezada MD Primary Care Provider Michael Clayton [phone] ALLERGIES No Known Allergies REASON FOR REFERRAL [...] malignant neoplasm of colon (Z12.11) Active confirmed 925076114 Problem Preprocedural examination (Z01.818) Active confirmed [id number] Problem Anemia, unspecified type (D64.9) Active confirmed 821659142 Problem Gastritis, chronic (K29.50) Active confirmed Chronic gastrit is (3272929) Problem Iron deficiency anemia (D50.9) Active confirmed Iron deficien cy anemia (90410162) Problem Dysphagia (R13.10) Active confirmed Dys phagia (60559219) Problem Abnormal upper gastrointestinal barium series (R93.3) Active confirmed VITAL SIGNS Blood pressure diastolic 00 mm Hg 04/03/2024 Height 71 in 04/03/2024 Blood pressure systolic 00 mm Hg 04/03/2024 Weight 169 lbs 04/03/2024 BMI 23.57 kg/m2 04/03/2024 Encounters Encounter Location Date Provider Diagnosis [facility] [place] Out[place] [address] [place], [place] [phone] 05/02/2024 Michael Mcdonough Other specified dise ase of esophagus K22.89 ; Dysphagia R13.10 ; GI bleed K92.2 ; Hiatal hernia K44.[address] scan, esophagus R93.3 [facility] [address] [facility] [address] [place] [phone] 04/03/2024 Michael Mcdonough Dysphagia R13.10 and Abnormal upper gastrointestinal barium series R93.3 ASSESSMENTS Encounter Date Diagnosis Assessment Notes Treatment Notes Treatment Clinical Notes 05/02/2024 Dysphagia (ICD-10 - R13.10) 05/02/2024 Other specified dise ase of esophagus (ICD-10 - K22.89) 04/03/2024 Dysphagia (ICD-10 - R13.10) Stop Plavix for 5 days before the upper endoscopy Stop fish oil 1 week before the upper endoscopy 04/03/2024 Abnormal upper gastrointestinal barium series (ICD-10 - R93.3) 05/02/2024 GI bleed (ICD-10 - K92.2) 05/02/2024 Hiatal hernia (ICD-1 0 - K44.9) 05/02/[address] scan, esophagus (ICD-10 - R93.3) PLAN OF TREATMENT Pending [...] Date MEDICARE OF [place] [address] [facility] [place] [address] [id number] INO GREER Self - patient is the insured [employer] ATT[employer] CLAIMS [address] [place] [address] [id number] INO GREER Self - patient is the insured MEDICAL (GENERAL) HISTORY Medical History History ICD Code Denies [place],DM,CVA,Lung disease,renal dise ase Anxiety and depression Neg [...] stricture Back Surgery in 2022-Dr. Watkins at [facility]
== END 2024-05-16 12:51 | disposition home or self-care (01) ==
LOC: HO.US 12:50
PROVIDERS: PCP Internal Medicine; Visit Provider Internal Medicine
DX: R22.32 Localized swelling, mass and lump, left upper limb (principal)
CPT/HCPCS: 76882

== ENCOUNTER 2024-06-18 13:17 | Outpatient (AMB) | payer MEDICARE, SELFPAY ==
--- NOTE | 2024-06-18 13:48 | MHC.OFFWIV ---
Intake Vital Signs 06/18/24 13:49 Weight 171 lb BP 118/68 Blood Pressure Location Rt brachial Position Sitting Pulse 98 Pulse Source Pulse Oximeter Pulse Oximetry (%) 97 Oxygen Delivery Method Room Air Intake Visit Reasons: EP ? sliver from an almond inside the mouth Intake Note: Patient here for sensitivity in mouth that started tuesday, has been feeling like gums are inflammed and discomfort which is traveling to other spots in mouth. Patient Tobacco Use Status: Former Tobacco user Allergies pollen extracts [POLLEN] Allergy (Intermediate, Verified 06/18/24 13:51) Sneezing Do you need a note to return to daycare/school/sports/work: No HPI HPI Comments History of Present Illness Details History of Present Illness - The patient is a 69-year-old male presenting with oral discomfort due to an area of concern in the gingiva where an almond particle might have lodged 5 days ago. - He had a severe cold recently, followed by an ear infection, for which he was treated with antibiotics on 05/04, but he is unsure of full resolution of the ear infection. - He reports that pain and inflammation expanded from the mouth area to his bottom lip and into his neck. - Pt states inside gum of front lower teeth has an area of white present, surrounded by swelling. and he described the feeling as spikey. He has attempted self-extraction without success. - He recently completed a course of Augmentin, following a diagnosis of sinusitis with otitis media, which helped resolve the infection but left residual fluid. This was over a month ago on 05/04 Physical Exam General: Cooperative, healthy appearing, comfortable, no acute distress and well developed Orientation: Patient oriented x3 Limitations: No limitations Head: Normal to inspection Ears: Hearing grossly normal bilaterally, but a lot of fluid present bilateral TM's, no signs of infection Nose: Normal external nose present Eyes: Appearance normal, both eyes and all related structures Neck: Normal visual inspection Respiratory: Normal respiratory effort and able to speak in complete sentences. Skin: No rashes or lesions noted Neuro: Patient oriented x3 Extremities: Normal to inspection [facility] Medical History (Updated 06/18/24 @ 14:23 by Margareth Real PA-C) Screening for abdominal aortic aneurysm Anal fistula Insomnia Impaired glucose tolerance Peripheral neuropathy Lumbar degenerative disc disease Erectile dysfunction Allergic rhinitis Mixed hyperlipidemia Back pain Anxiety Anemia Urethral stricture Viral pneumonia Peripheral vascular disease Surgical History (Updated 05/02/24 @ 10:12 by Gayle Duncan RN) History of back surgery History of esophagogastroduodenoscopy (EGD) History of surgery (03/03/21) Hx of sinus surgery Hx of colonoscopy S/P femoral-popliteal bypass surgery H/O arterial bypass of lower limb Family History Father Medical history unknown Mother Medical history unknown Social History Housing: House Alcohol intake: never Patient Tobacco Use Status: Former Tobacco user Tobacco use type: Cigarette Years Smoked: quit 2009 e-Cigarette/Vaping Use: Never Used Second Hand Smoke Exposure: Yes service: No Current occupational status: employed Cognitive needs: No Hearing needs: No Vision needs: Yes Review of Systems Const All systems reviewed & are unremarkable except as noted in HPI and below Physical Exam Vital Signs: Last Vital Signs Pulse 98 06/18/24 13:49 BP 118/68 06/18/24 13:49 Pulse Ox 97 06/18/24 13:49 Oxygen Delivery Method Room Air 06/18/24 13:49 HEENT Throat image: 1. white purulence with surrounding erythema and edema. Assessment & Plan Assessment & Plan (1) Gingival abscess: Code(s): K05.219 - Aggressive periodontitis, localized, unspecified severity Plan: Plan The patient is advised to initiate a 10-day course of Augmentin for comprehensive management of the gingival abscess and potential retained foreign body. Frequent warm salt water rinses are recommended, with the addition of hydrogen peroxide to aid in the elimination of the suspected retained fragment. The patient is advised to consult with a hydrochloric area supervisor or an oral surgeon if symptoms persist, given their specialization in oral and gingival issues, they may need to drain it. Flonase is suggested for managing any residual ear effusion from his previous cold, which should assist in drainage without further infection. Follow-up with dental specialists is indicated if no improvement is observed to evaluate for further possible interventions. Patient was informed and verbally consented to the use of an ambient scribe for clinic note documentation during this visit. Medications: New amoxicillin-pot clavulanate 875-125 mg 1 tab PO Q12H 20 tabs 0RF Coding Level of Care Code Est Pt Level 3 (79416) Diagnoses Gingival abscess K05.219
[2024-06-18 13:49] VITALS: BP 118/68; PULSE 98; O2SAT 97
== END 2024-06-18 14:33 | disposition home or self-care (01) ==
PROVIDERS: PCP Internal Medicine; Visit Provider Physician Assistant
DX: K05.219 Aggressive periodontitis, localized, unspecified severity (principal)

== ENCOUNTER → 2024-06-18 13:17 | Outpatient (BNVA) | payer MEDICARE, SELFPAY | PROVIDERS: PCP Internal Medicine; Visit Provider Physician Assistant | DX: K05.219 Aggressive periodontitis, localized, unspecified severity (principal) | CPT/HCPCS: 99212 ==

== ENCOUNTER 2024-08-17 09:58 | Outpatient (AMB) | payer MEDICARE, SELFPAY ==
[2024-08-17 10:08] VITALS: BP 124/70; PULSE 97; TEMP 37.2; O2SAT 96; BMI 23.9
--- NOTE | 2024-08-17 10:08 | A.OFFPC_ITS ---
Vital Signs 08/17/24 10:08 Height 5 ft 11 in Weight 171 lb 4 oz BMI 23.9 BP 124/70 Blood Pressure Location Lt brachial Position Sitting Pulse 97 Pulse Source Pulse Oximeter Temp 99.0 F Temp Source Temporal Artery Scan Pulse Oximetry (%) 96 Oxygen Delivery Method Room Air Intake Visit Reasons: Sinus infection Gut Snatcher Required: No Accompanied by: Self / Same As Patient Allergies pollen extracts [POLLEN] Allergy (Intermediate, Verified 08/17/24 10:18) Sneezing Medication List - Last Reconciled 08/17/24 by Katherine Avitia PA-C alprazolam 0.25 mg PO BID PRN 30 days atorvastatin 80 mg PO DAILY 90 days cholecalciferol (vitamin D3) (Vitamin D3) 25 mcg PO DAILY clopidogrel (Plavix) 75 mg PO DAILY fexofenadine 180 mg PO DAILY tramadol 50 mg PO Q8H PRN 90 days trazodone 100 mg PO BEDTIME 90 days triamcinolone acetonide (Nasacort Allergy) 2 sprays intranasal DAILY Tobacco use date assessed: 08/17/24 Fall risk assessment: No Falls in past year Last assessed Fall Risk: 08/17/24 Dental Screening Dental Screen Date: 08/17/24 Did you have a dental visit in the last 12 months?: Yes Did you have a dental problem in the last 6 months where you did not have access to dental care?: No Was dental information given to patient?: Patient has dentist [facility] Medical History (Updated 08/17/24 @ 10:35 by Katherine Avitia PA-C) History of nasal polyp Recurrent sinusitis Screening for abdominal aortic aneurysm Anal fistula Insomnia Impaired glucose tolerance Peripheral neuropathy Lumbar degenerative disc disease Erectile dysfunction Allergic rhinitis Mixed hyperlipidemia Back pain Anxiety Anemia Urethral stricture Viral pneumonia Peripheral vascular disease Surgical History History of back surgery History of esophagogastroduodenoscopy (EGD) History of surgery (03/03/21) Hx of sinus surgery Hx of colonoscopy S/P femoral-popliteal bypass surgery H/O arterial bypass of lower limb Family History Father Medical history unknown Mother Medical history unknown Social History Housing: House Alcohol intake: never Patient Tobacco Use Status: Former Tobacco user Tobacco use type: Cigarette Years Smoked: quit 2009 e-Cigarette/Vaping Use: Never Used Second Hand Smoke Exposure: Yes service: No Current occupational status: employed Cognitive needs: No Hearing needs: No Vision needs: Yes Questionnaire PHQ-9 Over the last 2 weeks, how often have you been bothered by any of the following problems? 1. Little interest or pleasure in doing things: not at all 2. Feeling down, depressed, or hopeless: not at all 3. Trouble falling or staying asleep, or sleeping too much: not at all 4. Feeling tired or having little energy: not at all 5. Poor appetite or overeating: not at all 6. Feeling bad about yourself - or that you are a failure or have let yourself or your family down: not at all 7. Trouble concentrating on things, such as reading the newspaper or watching television: not at all 8. Moving or speaking so slowly that other people could have noticed. Or the opposite - being so fidgety or restless that you have been moving around a lot more than usual: not at all 9. Thoughts that you would be better off or of hurting yourself in some way: not at all Total score: 0 Depression Screening Interpretation: Negative Depression Screening Done: Yes 02850 - PHQ-9 Billing: Yes Source: Developed by Drs. Michael Rebollar, Kait Cooper, Abelardo Ruby and colleagues, with an educational faustino from [employer]. Thrive Questionnaire Date Thrive assessed: 08/17/24 I am a: Patient What is your living situation today?: I have a steady place to live Within the past 12 months, did the food you bought not last and you didn't have the money to get more?: Never true Within the past 12 months, did you worry whether your food would run out before you got money to buy more?: Never true Do you have trouble paying for medicines?: No Do you have trouble getting transportation to medical appointments?: No Do you have trouble paying your heating and electricity bill?: No Do you have trouble taking care of your child, family member or friend?: No Do you have trouble with day-to-day activities such as bathing, preparing meals, shopping, managing finances, etc.?: No Are you currently unemployed and looking for a job?: No Are you interested in more education?: No Please select the resources that you would like help with: None Currently or been in a relationship where the following occur: No concerns reported THRIVE Score: 0 AUDIT C Alcohol Use Questionnaire (AUDIT-C) 1. How often do you have a drink containing alcohol?: Never 3. How often do you have six or more drinks on one occasion?: Never Total Score: 0 Score Reviewed/Action Taken: No HÉCTOR-7 AMB Questionnaire HÉCTOR-7 Date HÉCTOR - 7 assessed: 08/17/24 Feeling nervous, anxious, or on edge: 0 = Not at all Not being able to stop or control worryin = Not at all Worrying too much about different things: 0 = Not at all Trouble relaxin = Not at all Being so restless that it is hard to sit still: 0 = Not at all Becoming easily annoyed or irritable: 0 = Not at all Feeling afraid as if something awful might happen: 0 = Not at all Total HÉCTOR-7 score (0-4 normal; 5-9 mild; 10-14 moderate; 15-21 severe): 0 Source: Developed by Drs. Michael Rebollar, Kait Cooper, Abelardo Ruby and colleagues, with an educational faustino from [employer]. HÉCTOR-7 Assessment Billing HÉCTOR-7 Assessment Tool: HÉCTOR-7 Assessment 17661 Physical exam (Primary Care) Vital Signs: Last Vital Signs Temp 99.0 F 08/17/24 10:08 Pulse 97 08/17/24 10:08 BP 124/70 08/17/24 10:08 Pulse Ox 96 08/17/24 10:08 Oxygen Delivery Method Room Air 08/17/24 10:08 Care Plan Goal for BP management: 140/80 at goal BMI result Body Mass Index 23.9 normal bmi Tobacco/Smoking Status: Tobacco use Status Tobacco use date assessed 08/17/24 08/17/24 10:15 Patient Tobacco Use Status Former Tobacco user 08/17/24 10:15 Tobacco use type Cigarette 08/17/24 10:15 e-Cigarette/Vaping Use Never Used 08/17/24 10:15 PHQ-9: PHQ-9 Score PHQ-9: Total score 0 08/17/24 10:15 Depression Screening Interpretation: Negative Thrive Assessment: Date of Thrive Assessment Date Thrive assessed 08/17/24 08/17/24 10:15 Currently or been in a relationship where the following occur: No concerns reported Coding Level of Care Code Est Pt Level 3 (64310) Complex EM visit Add On G2211 Diagnoses Recurrent sinusitis J32.9 History of nasal polyp Z87.09 Additional Codes HÉCTOR-7 Assessment Billing - HÉCTOR-7 Assessment Tool: HÉCTOR-7 Assessment 07634 ([id number]) PHQ-9 - 52830 - PHQ-9 Billing: Yes ([id number]) Assessment & Plan Assessment & Plan (1) Recurrent sinusitis: Code(s): J32.9 - Chronic sinusitis, unspecified Category: Medical Plan: The patient will be managed with Augmentin and prednisone to address the infection and inflammation. Claritin D to alleviate symptoms. ENT referral is confirmed for further evaluation due to history of polyps. (2) History of nasal polyp: Code(s): Z87.09 - Personal history of other diseases of the respiratory system Category: Medical Plan: Referral to ENT to reassess for any recurrent polyps contributing to symptom persistence. Monitoring symptoms for potential polyp recurrence. Plan Plan Patient was informed and verbally consented to the use of an ambient scribe for clinic note documentation during this visit. 1. Aggressive periodontitis, localized, unspecified severity Resolved; no further action required. 2. Recurrent Sinusitis The patient will be managed with Augmentin and prednisone to address the infection and inflammation. Claritin D to alleviate symptoms. ENT referral is confirmed for further evaluation due to history of polyps. 3. History Of Nasal Polyps Referral to ENT to reassess for any recurrent polyps contributing to symptom persistence. Monitoring symptoms for potential polyp recurrence. 4. History Of Pneumonia Previous pneumonia concerns addressed; no symptomatic correlations warrant further pneumonia investigation. Discussion Notes I discussed with the patient the diagnosis of recurrent sinusitis exacerbated by his history of nasal polyps. Treatment with Augmentin was chosen following the history of use in previous similar episodes, confirming its suitability and plan for a 14-day course. The benefits of using prednisone for reducing inflammation were explained, and its use was consented. I highlighted the potential necessity of ENT follow-up due to previous polyp history and recurrent symptomatology. The referral has been expedited for thorough ENT evaluation. The patient was counseled on returning if symptoms persist, with instructions to monitor for any chest changes. Ensured patient understanding of prescribed medications and their effects. Orders: Referrals Ear/Nose/Throat Referral J32.9 - Chronic sinusitis, unspecified Medications: New amoxicillin-pot clavulanate 875-125 mg 1 tab PO BID 14 days 28 tabs 0RF sinusitis prednisone 40 mg (2 x 20 mg) PO DAILY 5 days 10 tabs 0RF loratadine-pseudoephedrine 5-120 mg ER (Claritin-D 12 Hour) 1 tab PO Q12H 30 tabs 0RF Patient Instructions: Patient Instructions - Take Augmentin as prescribed: twice a day for 14 days. - Use prednisone as directed: 40 mg once daily for 5 days. - Use Claritin D for symptom relief. - Continue usage of Nasocort for nasal congestion management. - Report any worsening symptoms or new symptoms, especially if breathing difficulties escalate. - Follow up with ENT as scheduled for evaluation of nasal polyps. - Call the office with any questions or concerns about medications or symptoms. - Consider using saline nasal spray to assist with congestion relief. - Rest and maintain adequate hydration. Scribe Plan - Not visible on output: History of Present Illness The patient is a 69-year-old male presenting with recurrent sinusitis. Symptoms began around three weeks ago, including significant nasal congestion and green nasal discharge. The patient reports these recurrent issues mimic past issues related to nasal polyps surgically removed two decades ago. He has a history of fear of infections developing into pneumonia due to past experiences. He was treated for a gingival abscess this May but questions remain about receiving treatment for sinusitis during prior visits. Over the weeks, the symptoms have slightly decreased when utilizing saline nasal sprays and Nasocort. However, chest congestion and difficulty breathing have persisted. The possibility of these symptoms leading to pneumonia is a concern for the patient. Outside of this, he denies vomiting, diarrhea, or exposure to recent illnesses. He recently tested negative for COVID-19, aligning with his work requirements at [employer] where exposure to varying pathogens might occur. Social History - Employment: Works at [employer], possibly exposed to a plethora of pathogens. - Housing: Not discussed. - Substance Use: Not discussed. - Exercise: Not discussed. - Nutrition: Not discussed. - Family Status: Not discussed. Review of Systems - Respiratory: Reports shortness of breath and cough. - Cardiovascular: Denies swelling of the legs. - Gastrointestinal: Denies vomiting, diarrhea, black or bloody stools. - General: Denies recent travel, confirms negative COVID-19 test early in the week. Physical Exam Appearance: Alert. Oriented X3. No acute distress. Head: Normal external exam. Normocephalic. Atraumatic. Eyes: Pupils are equal, round, and reactive to light. Extraocular movements intact. Conjunctiva and sclera normal. Eyelids normal. Ears: External auditory canal normal. Tympanic membranes normal. Throat: Pharynx normal. Uvula midline. Moist mucous membranes. Neck: Normal inspection. Neck supple. Full range of motion. No adenopathy. No meningeal signs. Cardiovascular: Normal heart rate and rhythm. Heart sound normal. No murmurs noted. Pulses normal throughout. Respiratory: No respiratory distress. Painless inspiration. Breath sounds normal. No wheezes/rales/rhonchi noted. Chest nontender. No accessory muscle usage noted or decreased air movement noted. Back: Full range of motion noted. Skin: Skin warm and dry. Normal skin color. Normal skin turgor. No rashes/lesions/lacerations noted. Extremities: No lower extremity edema. Extremities exhibit normal range of motion. Extremities nontender. Neuro: Oriented X 3. Results - COVID-19 Test: Negative (conducted by the patient)
--- OUTSIDE RECORDS SUMMARY | 2024-08-17 11:43 | XMS_ITS ---
Author Organization [facility] Address [address] [place] [address] Care Team Providers Care Prep Cook Name Role Phone Po Maverick TORRES Primary Care Provider Michael Clayton [phone] REASON FOR VISIT dysphagia,abn ugi barium series Encounters Encounter Location Date Provider Diagnosis [facility] [place] Outpatient [address] [place] [id number] 05/02/2024 Michael Mcdonough Other specified di sease [...] INO GREER ADOB:[birth year] (69 yo M)Acc No.[id number]:05/02/2024 EGD/MAC Patient:?ZOEY INO Hermosillo Provider:?Michael Mcdonough MD :1955???Age:69 Y???Sex:Male Javier e:05/02/2024 Address[place], [id number] Pcp:Maverick Quezada MD Subjective: * Chief Complaints: * ???1. Dysphagia,abn ugi geetha um series. * Medical History:? Objective: * Vitals:? Assessment: * Assessment: 1.?Other specified disease o f esophagus - K22.89 (Primary)???2.?Dysphagia - R13.10???3.?GI bleed - K92.2???4.?Hiatal hernia - K44.9???5.?Abnormal CT scan, esophagus - R93.3??? Plan: * Treatment: * Procedure Codes:?11343 ESOPH ENDOSCOPY, DILATION * * The named appointment provid er may or may not be the originator of this progress note, and it is not deemed complete until electronically signed by the appointment provider. Sign off status: Pending * Provider:?Michael Mcdonough MD Date:? 024 Generated for Butch dai/Álvaro/eTransmitting on:?08/17/2024 11:43 AM EDT
--- OUTSIDE RECORDS SUMMARY | 2024-08-17 11:43 | XMS_ITS ---
Author Organization [facility] Address [address] [place] [address] Care Team Providers Care Chemical Treatment Plant Technician Name Role Phone Po Maverick TORRES Primary Care Provider Michael Clayton [phone] Allergies No Known Allergies Medications Medication SIG (Take, Route, Frequency, Duration) Notes [...] A DAY NEEDED Oral for 30 Active Social History Tobacco Use: Social History Observation Description Date Details (start date - stop date) Former Smoker NA - NA Tobacco Use/Smoking Question Answer Notes Patient is [...] Never (0 point) Points 0 Interpretation Negative Section Notes: Nonsmoker; no sig alcohol Problems Problem Type SNOMED Code ICD Code Onset Dates Problem Status W/U Status Risk Notes Problem Dysphagia (04956143) Dysphagia (R13.10) Active confirmed Problem Abnormal upper gastrointestinal barium series (R93.3) Active confirmed Vital Signs Blood pressure systolic 00 mm Hg 04/03/20 24 Blood pressure diastolic 00 mm Hg 024 Height 71 in 04/03/2024 Weight 169 lbs 04/03/2024 BMI 23.57 kg/m2 04/03/2024 Encounters Encounter Location Date Provider Diagnosis [facility] [address] [place] [phone] 04/03/2024 Michael Mcdonough Dysphagia R13.10 and Abnormal upper gastrointestinal barium series R93.3 Assessments Encounter Date Diagnosis (ICD Code) Assessment Notes Treatment Notes Treatment Clinical Notes Section Notes 04/03/2024 Dysphagia (ICD-10 - R13.10) Stop Plavix for 5 days before the upper endoscopy Stop fish oil 1 week before the upper endoscopy Overall, Ino appears quite well. Given his clinical history, excellent clinical appearance, and the barium swallow findings, I don't think this reflects any significant esophageal pathology. He may have a mild esophageal stricture or ring, or simply some esophageal spasm. I did recommend an upper endoscopy with possible balloon dilation for further evaluation of the upper GI series and his symptomatology. Full consent was obtained for this, including risks of bleeding and perforation. The procedure will be done with monitored anesthesia care. He was given the below instructions regarding adjustment of his medication for the procedure. We did review that he should undergo a repeat colonoscopy for screening in 2029 given his negative exam in 2019 and no family history of colon cancer. Ino was comfortable with this plan. Thank you again for allowing me to participate in Ino's care. I shall continue to keep you advised of his progress. 04/03/2024 Abnormal upper gastrointestinal barium series (ICD-10 - R93.3) Overall, Ino appears quite well. Given his clinical history, excellent clinical appearance, and the barium swallow findings, I don't think this reflects any significant esophageal pathology. He may have a mild esophageal stricture or ring, or simply some esophageal spasm. I did recommend an upper endoscopy with possible balloon dilation for further evaluation of the upper GI series and his symptomatology. Full consent was obtained for this, including risks of bleeding and perforation. The procedure will be done with monitored anesthesia care. He was given the below instructions regarding adjustment of his medication for the procedure. We did review that he should undergo a repeat colonoscopy for screening in 2029 given his negative exam in 2019 and no family history of colon cancer. Ino was comfortable with this plan. Thank you again for allowing me to participate in Ino's care. I shall continue to keep you advised of his progress. Plan Of Treatment Treatment Notes Assessment Notes Dysphagia Stop Plavix for 5 days before the upper endoscopy Stop fish oil 1 week before the upper endoscopy Future Test Test Name Order Date UPPER GI ENDOSCOPY BALLOOON DILATION OF ESOPH 04/03/2024 Next Appt Details Follow Up: prn, Reason: Progress Notes * INO GREER ADOB:[birth year] (69 yo M)Acc No.[id number]:04/03/2024 Progress Notes Patient:?INO GREER A Provider:?Michael Mcdonough MD :1955???Age:69 Y???Sex:Male Javier e:04/03/2024 Address:[address] [place] [address] [place] Pcp:Maverick Quezada MD Subjective: * Chief Complaints: * ??? * HPI: ???incontinence:? I saw Ino in the office today for evaluation of dysphagia and abnormal upper GI series. ?I last saw Ino in July of 2020, at which time he had reviewed his previous upper endoscopy and colonoscopy from 2019. At that time the upper endoscopy had revealed only some gastritis but without any sign of esophageal disease or any other pathology. His colonoscopy was negative for polyps. He apparently has been having some issues with dysphagia, including an episode earlier this year with a pill that required an ER visit as he was not able to swallow saliva. This eventually cleared in the ER and did not require endoscopy. Since that time he reports that he does have occasional problems with solid food that cause a sense of dysphagia although without any symptoms of esophageal obstruction. He denies any anorexia, early satiety, nausea, vomiting, or significant heartburn. He did have a GI series at the end of February describing some mild narrowing at the gastroesophageal junction without any sign of mass nor any definitive stricture. There was also some evidence of possible gastritis. ?He reports that his bowel movements have been fairly regular and without any signs of bleeding. He denies any known family history of colon cancer. He denies any abdominal pain, jaundice, nor unintentional weight loss. * ROS:?General/Constitutional:?Change in appetite?denies.?Chills?denies.?Fatigue?denies.?Ophthalmologic:?Comments?all negative.?ENT:?Comments?all negative.?Respiratory:?hemoptysis?denies.?Cough?denies.?Cardiovascular:?Chest pain?denies.?Orthopnea?denies.?Gastrointestinal:?Comments?See HPI for details.?Genitourinary:?Hematuria?denies.?Dysuria?denies.?Musculoskeletal:?Painful joints?denies.?Weakness?denies.?Skin:?Itching?denies.?Rash?denies.?Neurologic:?Headache?denies.?Seizures?denies.?Psychiatric:?Comments?all negative.? * Medical History:? * Surgical History:?Left LE by pass 2006 Sinus surgery Urethral stricture Back Surgery in 2022-Dr. Watkins at [facility] * Hospitalization/Major Diagno stic Procedure:?No Hospitalization History. * Family History:?Father: dece ased, lung cancer.?Mother: , broke hip/sepsis.? No known hx of colon cancer. * Social History:?Tobacco Use:?Tobacco Use/Smoking?Patient is a?former smoker,?How long has it been since you last smoked??> 10 years.?Drugs/Alcohol:?Alcohol Screen?Did you have a drink containing alcohol in the past year??Yes,?How often did you have a drink containing alcohol in the past year??Never (0 point),?How many drinks did you have on a typical day when you were drinking in the past year??1 or 2 drinks (0 point),?How often did you have 6 or more drinks on one occasion in the past year??Never (0 point),?Points?0,?Interpretation?Negative.?Miscellaneous:?Marital status: . 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 ???Nonsmoker; no sig alcohol. * Medications:?TakingPlavix 75 MG Tablet 1 tablet Orally Once a daytraMADol HCl 50 MG Tablet (Schedule IV Drug) TAKE 1 TABLET BY MOUTH THREE TIMES A DAY Oral ALPRAZolam 0.25 MG Tablet (Schedule IV Drug) TAKE 1 TABLET BY MOUTH TWICE A DAY NEEDED Oral traZODone HCl 100 MG Tablet TAKE 1 TABLET BY MOUTH AT BEDTIME NEEDED Oral Cialis 20 MG Tablet 1 tablet Orally Fenofibrate 160 MG Tablet 1 tablet Orally Once a dayAtorvastatin Calcium 80 MG Tablet 1 tablet Orally Once a dayMultivitamin Adult - Tablet as directed Orally Nasonex 50 MCG/ACT Suspension 2 sprays in each nostril Nasally Once a dayNiaspan 500 MG Tablet Extended Release 3 tablet in am and 3 tablets at bedtime Orally twice a dayTaking Plavix 75 MG Tablet 1 tablet Orally Once a dayTaking traMADol HCl 50 MG Tablet (Schedule IV Drug) TAKE 1 TABLET BY MOUTH THREE TIMES A DAY Oral Taking ALPRAZolam 0.25 MG Tablet (Schedule IV Drug) TAKE 1 TABLET BY MOUTH TWICE A DAY NEEDED Oral Taking traZODone HCl 100 MG Tablet TAKE 1 TABLET BY MOUTH AT BEDTIME NEEDED Oral Taking Cialis 20 MG Tablet 1 tablet Orally Taking Fenofibrate 160 MG Tablet 1 tablet Orally Once a dayTaking Atorvastatin Calcium 80 MG Tablet 1 tablet Orally Once a dayTaking Multivitamin Adult - Tablet as directed Orally Taking Nasonex 50 MCG/ACT Suspension 2 sprays in each nostril Nasally Once a dayTaking Niaspan 500 MG Tablet Extended Release 3 tablet in am and 3 tablets at bedtime Orally twice a dayNot-Taking/PRNFish Oil 1000 MG Capsule 1 capsule Orally Twice a dayFexofenadine HCl 180 MG Tablet TAKE 1 TABLET BY MOUTH EVERY DAY NEEDED Oral Vitamin D 25 MCG (1000 UT) Tablet 1 tablet Orally Once a dayVitamin C 500 MG Capsule as directed Orally Omeprazole 20 MG Capsule Delayed Release 1 capsule 30 minutes before morning meal Orally Once a dayNot-Taking/PRN Fish Oil 1000 MG Capsule 1 capsule Orally Twice a dayNot-Taking/PRN Fexofenadine HCl 180 MG Tablet TAKE 1 TABLET BY MOUTH EVERY DAY NEEDED Oral Not-Taking/PRN Vitamin D 25 MCG (1000 UT) Tablet 1 tablet Orally Once a dayNot-Taking/PRN Vitamin C 500 MG Capsule as directed Orally Not-Taking/PRN Omeprazole 20 MG Capsule Delayed Release 1 capsule 30 minutes before morning meal Orally Once a dayDiscontinuedGlucosamine 500 MG Capsule 1 capsule with a meal Orally once a dayTriamcinolone Acetonide 0.5 % Cream APPLY 1 APPLICATION EXTERNALLY TWICE A DAY FOR 14 DAYS External Clopidogrel Bisulfate 75 MG Tablet TAKE 1 TABLET BY MOUTH EVERY DAY Oral Proctosol HC 2.5 % Cream 1 application Externally Twice a dayIron 325 (65 Fe) MG Tablet 1 tablet Orally Once a dayMedication List reviewed and reconciled with the patientDiscontinued Glucosamine 500 MG Capsule 1 capsule with a meal Orally once a dayDiscontinued Triamcinolone Acetonide 0.5 % Cream APPLY 1 APPLICATION EXTERNALLY TWICE A DAY FOR 14 DAYS External Discontinued Clopidogrel Bisulfate 75 MG Tablet TAKE 1 TABLET BY MOUTH EVERY DAY Oral Discontinued Proctosol HC 2.5 % Cream 1 application Externally Twice a dayDiscontinued Iron 325 (65 Fe) MG Tablet 1 tablet Orally Once a dayMedication List reviewed and reconciled with the patient * Allergies:?N.K.D.A.yes[Aller gies Verified] Objective: * Vitals:?Wt: 169 lbs, Ht: 71 in, BMI:23.57 Index, BP: 00/00 mm Hg. * Examination: ???General Examination: ?GENERAL APPEARANCE:?pleasant, well nourished, well developed, in no acute distress.?EYES:?sclera non-icteric.?ORAL CAVITY:?mucosa moist.?NECK/THYROID:?no cervical lymphadenopathy, neck supple.?SKIN:?nonjaundiced, no spider angiomata.?HEART:?S1, S2 normal.?LUNGS:?clear to auscultation bilaterally.?ABDOMEN:?normal bowel sounds, no guarding or rigidity, no guarding or rigidity, no masses palpable, soft, nontender, nondistended.?EXTREMITIES:?no edema.?NEUROLOGIC:?alert and oriented.? Assessment: * Assessment: 1.?Dysphagia - R13.10 (Prima ry)?2.?Abnormal upper gastrointestinal barium series - R93.3? Overall, Ino appears quit e well. Given his clinical history, excellent clinical appearance, and the barium swallow findings, I don't think this reflects any significant esophageal pathology. He may have a mild esophageal stricture or ring, or simply some esophageal spasm. I did recommend an upper endoscopy with possible balloon dilation for further evaluation of the upper GI series and his symptomatology. Full consent was obtained for this, including risks of bleeding and perforation. The procedure will be done with monitored anesthesia care. He was given the below instructions regarding adjustment of his medication for the procedure. We did review that he should undergo a repeat colonoscopy for screening in 2030 given his negative exam in 2019 and no family history of colon cancer. Ino was comfortable with this plan. Thank you again for allowing me to participate in Ino's care. I shall continue to keep you advised of his progress. Plan: * Treatment: Notes: Stop Plavix for 5 days before the upper endoscopy Stop fish oil 1 week before the upper endoscopy??2.?Abnormal upper gastrointestinal barium series?Procedure: UPPER GI ENDOSCOPY BALLOOON DILATION OF ESOPH (Ordered for 04/03/2024)* with MACsched for 05/02/24 at 11:30 am * Procedure Codes:?3017F COLOR ECTAL CA SCREEN DOC [id number] TOBACCO [id number]-[id number] BP SCR NOT PRFRM REC REASON NOS * Preventive Medicine:? ??Screenings:?Fall Risk Screening?Fall Risk Assessment:?No falls in the past year,?Screening:?No falls in the past year,?Assessment:?Not performed, no reason specified,?Plan of Care:?Not documented, no reason specified.? * Follow Up:?prn * * Sign off status: Completed true * Provider:?Michael Mcdonough MD Date:? 024 Generated for Butch dai/Álvaro/eTransmitting on:?08/17/2024 11:42 AM EDT History and Physical Notes * HPI (History of Present Illness) Category Sub-Category Detail Notes Category Not es incontinence I saw Ino in the office today for evaluation of dysphagia and abnormal upper GI series. I last saw Ino in July of 2020, at which time he had reviewed his previous upper endoscopy and colonoscopy from 2019. At that time the upper endoscopy had revealed only some gastritis but without any sign of esophageal disease or any other pathology. His colonoscopy was negative for polyps. He apparently has been having some issues with dysphagia, including an episode earlier this year with a pill that required an ER visit as he was not able to swallow saliva. This eventually cleared in the ER and did not require endoscopy. Since that time he reports that he does have occasional problems with solid food that cause a sense of dysphagia although without any symptoms of esophageal obstruction. He denies any anorexia, early satiety, nausea, vomiting, or significant heartburn. He did have a GI series at the end of February describing some mild narrowing at the gastroesophageal junction without any sign of mass nor any definitive stricture. There was also some evidence of possible gastritis. He reports that his bowel movements have been fairly regular and without any signs of bleeding. He denies any known family history of colon cancer. He denies any abdominal pain, jaundice, nor unintentional weight loss. Examination Category Sub-Category Detail Notes Category Not es General Examination GENERAL APPEARANCE: pleasant , well [...]
--- OUTSIDE RECORDS SUMMARY | 2024-08-17 11:43 | XMS_ITS | Patient Health Record ---
Author Organization [facility] Address [address] [place] [phone] Care Team Providers Care Correspondence Representative Name Role Phone Maverick Quezada MD Primary Care Provider Michael Clayton [phone] Allergies No Known Allergies Reason For Referral No Information Medications Medication SIG (Take, Route, Frequency, Duration) [...] at bedtime Orally twice a day Active Immunizations Vaccine Route Administration Date Status Comme nts Influenza Unknown 01/28/2019 Administered Influenza Unknown 02/28/2020 Administered Social History Tobacco Use: Social History Observation [...] Negative Section Notes: Nonsmoker; no sig alcohol Nonsmoker; no sig alcohol Nonsmoker; no sig alcohol Problems Problem Type SNOMED Code ICD Code Onset Dates Problem Status W/U Status Risk Notes Problem [id number] Encounter for screening for malignant neoplasm of colon (Z12.11) Active confirmed Problem Dysphagia (31834287) Dysphagia (R13.10) Active confirmed Problem Iron deficiency anemia (51487403) Iron deficiency anemia (D50.9) Active confirmed Problem [id number] Preprocedural examination (Z01.818) Active confirmed Problem Abnormal upper gastrointestinal barium series (R93.3) Active confirmed Problem Chronic gastritis (9229249) Gastritis, chronic (K29.50) Active confirmed Problem 650146998 Anemia, unspecif ied type (D64.9) Active confirmed Vital Signs Blood pressure diastolic 00 mm Hg 04/03/2024 Height 71 in 04/03/2024 Blood pressure systolic 00 mm Hg 04/03/2024 Weight 169 lbs 04/03/2024 BMI 23.57 kg/m2 04/03/2024 Encounters Encounter Location Date Provider Diagnosis [facility] [address], [place] [id number] 05/02/2024 Michael Mcdonough Other specified dise ase of esophagus K22.89 ; Dysphagia R13.10 ; GI bleed K92.2 ; Hiatal hernia K44.[address] scan, esophagus R93.3 [facility] [address] [place] [address] 04/03/2024 Michael Mcdonough Dysphagia R13.10 and Abnormal upper gastrointestinal barium series R93.3 Assessments Encounter Date Diagnosis (ICD Code) Assessment Notes Treatment Notes Treatment Clinical Notes Section Notes 05/02/2024 Dysphagia (ICD-10 - R13.10) 05/02/2024 Other specified disease of esophagus (ICD-10 - K22.89) 04/03/2024 Dysphagia [...] to keep you advised of his progress. 05/02/2024 GI bleed (ICD-10 - K92.2) 05/02/2024 Hiatal hernia (ICD-10 - K44.9) 05/02/[address] scan, esophagus (ICD-10 - R93.3) Plan Of Treatment Pending Test Test Name Order Date IRON [...] MEDICARE OF [place] [address] [place] [address] [id number] INO GREER Self - patient is the insured [employer] CLAIMS [address] [place] [address] [phone] [id number] INO GREER Self - patient is the insured Medical (General) History Medical History History ICD Code Denies IA,DM,CVA,Lung disease,renal dise ase Anxiety and depression Neg [...] stricture Back Surgery in 2022-Dr. Watkins at [facility]
== END 2024-08-17 10:29 | disposition home or self-care (01) ==
LOC: HO.HMCH 09:59
PROVIDERS: PCP Internal Medicine; Visit Provider Physician Assistant Medical
DX: J32.9 Chronic sinusitis, unspecified (principal); Z87.09 Personal history of other diseases of the respiratory system

== ENCOUNTER → 2024-08-17 09:58 | Outpatient (BNVA) | payer MEDICARE, SELFPAY | PROVIDERS: PCP Internal Medicine; Visit Provider Physician Assistant Medical | DX: J32.9 Chronic sinusitis, unspecified (principal); Z87.09 Personal history of other diseases of the respiratory system | CPT/HCPCS: 96127; 99212 ==

== ENCOUNTER 2024-09-20 09:01 | Outpatient (AMB) | payer MEDICARE, SELFPAY ==
--- NOTE | 2024-09-20 09:08 | AM.OFFVISMDC ---
Intake Vital Signs 09/20/24 09:10 Height 5 ft 11 in Weight 171 lb BMI 23.8 BP 112/78 Blood Pressure Location Lt brachial Position Sitting Pulse 109 H Pulse Source Pulse Oximeter Pulse Oximetry (%) 97 Oxygen Delivery Method Room Air Intake Visit Reasons: AWV Intake Note: Patient here for an annual wellness visit Herbarium Worker Required: No Accompanied by: Self / Same As Patient Allergies pollen extracts [POLLEN] Allergy (Intermediate, Verified 09/20/24 09:09) Sneezing Medication List - Last Reconciled 09/20/24 by Maverick Quezada MD alprazolam 0.25 mg PO BID PRN 30 days ascorbate calcium (vitamin C) 500 mg PO DAILY atorvastatin 80 mg PO DAILY 90 days cholecalciferol (vitamin D3) (Vitamin D3) 25 mcg PO DAILY clopidogrel (Plavix) 75 mg PO DAILY fexofenadine 180 mg PO DAILY multivitamin 1 tab PO DAILY niacin 1,500 mg PO DAILY pantoprazole 20 mg PO DAILY tramadol 50 mg PO Q8H PRN 90 days trazodone 100 mg PO BEDTIME 90 days triamcinolone acetonide (Nasacort Allergy) 2 sprays intranasal DAILY HPI AWV HPI Details ENT Dr. Smith, problem with nasal polyp and uses nasonex- PFSH Medical History (Updated 09/20/24 @ 09:14 by Maverick Quezada MD) Pain in right testicle Otitis externa of right ear Facial rash Right ear pain Sinus congestion Finger pain, left Mass of left axilla RLQ abdominal pain Sebaceous cyst Anxiety History of nasal polyp Recurrent sinusitis Screening for abdominal aortic aneurysm Anal fistula Insomnia Impaired glucose tolerance Peripheral neuropathy Lumbar degenerative disc disease Erectile dysfunction Allergic rhinitis Mixed hyperlipidemia Back pain Anemia Urethral stricture Viral pneumonia Peripheral vascular disease Surgical History (Updated 09/20/24 @ 09:26 by Maverick Quezada MD) History of back surgery History of esophagogastroduodenoscopy (EGD) History of surgery (03/03/21) Hx of sinus surgery Hx of colonoscopy S/P femoral-popliteal bypass surgery H/O arterial bypass of lower limb Family History Father Medical history unknown Mother Medical history unknown Social History Housing: House Alcohol intake: never Patient Tobacco Use Status: Former Tobacco user Tobacco use type: Cigarette Years Smoked: quit 2009 e-Cigarette/Vaping Use: Never Used Second Hand Smoke Exposure: Yes service: No Current occupational status: employed Cognitive needs: No Hearing needs: No Vision needs: Yes Questionnaire Medicare Wellness Checkup [age] 65-71 What gender do you identify with?: male During the past 4 weeks, how much have you been bothered by emotional problems such as feeling anxious, depressed, irritable, sad or downhearted, and blue?: slightly During the past 4 weeks, has your physical & emotional health limited your social activities with family, friends, neighbors, or groups?: slightly During the past 4 weeks, how much bodily pain have you generally had?: moderate pain During the past 4 weeks, was someone available to help you if you needed & wanted help?: yes, as much as I wanted During the past 4 weeks, what was the hardest physical activity you could do for at least 2 minutes?: heavy Can you get to places out of walking distance without help? (For eg., can you travel alone on buses, taxis or drive your car?): Yes Can you go shopping for groceries or clothes without someone's help?: Yes Can you prepare your own meals?: Yes Can you do your housework without help?: Yes Because of any health problems, do you need the help of another person with your personal care needs such as eating, bathing, dressing or getting around the house?: No Can you handle your own money without help?: Yes During the past 4 weeks, how would you rate your health in general?: good During the past 4 weeks how have things been going for you?: pretty well Are you having difficulties driving your car?: no Do you always fasten your seat belt when you are in a car?: yes, usually During past 4 weeks, have you been bothered by the following: never: Falling or dizzy when standing up, Sexual problems?, Trouble eating well?, Teeth or denture problems? and Problems using the telephone? and sometimes: Tiredness or fatigue? Have you fallen 2 or more times in the past year?: No Are you afraid of falling?: No Are you a smoker?: no During the past 4 weeks, how many drinks of wine, beer, or other alcoholic beverages did you have?: no alcohol at all Do you exercise for about 20 minutes 3 or more times a week?: yes, most of the time Have you been given information to help with the following?: no: Hazards in your house that might hurt you? and no: Keeping track of your medications? How often do you have trouble taking medicines the way you have been told to take them?: I always take medicine as prescribed How confident are you that you can control & manage most of your health problems?: very confident What is your race?: White PHQ-9 Over the last 2 weeks, how often have you been bothered by any of the following problems? 1. Little interest or pleasure in doing things: not at all 2. Feeling down, depressed, or hopeless: not at all 3. Trouble falling or staying asleep, or sleeping too much: more than half the days 4. Feeling tired or having little energy: several days 5. Poor appetite or overeating: not at all 6. Feeling bad about yourself - or that you are a failure or have let yourself or your family down: not at all 7. Trouble concentrating on things, such as reading the newspaper or watching television: more than half the days 8. Moving or speaking so slowly that other people could have noticed. Or the opposite - being so fidgety or restless that you have been moving around a lot more than usual: not at all 9. Thoughts that you would be better off or of hurting yourself in some way: not at all Total score: 5 Source: Developed by Drs. Michael Rebollar, Kait Cooper, Abelardo Ruby and colleagues, with an educational faustino from [employer]. Fall Risk Assessment Fall Risk Assessment Fall risk assessment: No Falls in past year AUDIT C Alcohol Use Questionnaire (AUDIT-C) 1. How often do you have a drink containing alcohol?: Never Total Score: 0 HÉCTOR-7 AMB Questionnaire HÉCTOR-7 Date HÉCTOR - 7 assessed: 08/17/24 Feeling nervous, anxious, or on edge: 0 = Not at all Not being able to stop or control worryin = Not at all Worrying too much about different things: 0 = Not at all Trouble relaxin = Not at all Being so restless that it is hard to sit still: 0 = Not at all Becoming easily annoyed or irritable: 0 = Not at all Feeling afraid as if something awful might happen: 0 = Not at all Total HÉCTOR-7 score (0-4 normal; 5-9 mild; 10-14 moderate; 15-21 severe): 0 Source: Developed by Drs. Michael Rebollar, Kait Cooper, Abelardo Ruby and colleagues, with an educational faustino from [employer]. HÉCTOR-7 Assessment Billing HÉCTOR-7 Assessment Tool: HÉCTOR-7 Assessment 27996 Thrive Questionnaire Date Thrive assessed: 09/20/24 I am a: Patient What is your living situation today?: I have a steady place to live Within the past 12 months, did the food you bought not last and you didn't have the money to get more?: Never true Within the past 12 months, did you worry whether your food would run out before you got money to buy more?: Never true Do you have trouble paying for medicines?: No Do you have trouble getting transportation to medical appointments?: No Do you have trouble paying your heating and electricity bill?: No Do you have trouble taking care of your child, family member or friend?: No Do you have trouble with day-to-day activities such as bathing, preparing meals, shopping, managing finances, etc.?: No Are you currently unemployed and looking for a job?: No Are you interested in more education?: No THRIVE Score: 0 Review of Systems Const Denies poor appetite and Denies weakness Eyes Denies no additional complaints ENT Reports Normal hearing present, Denies dizziness, Denies nasal congestion, Denies tinnitus and Denies sore throat Card Denies chest pain, Denies syncope, Denies rapid heart rate and Denies dyspnea Resp Denies cough and Denies dyspnea GI Denies change in stool character, Reports constipation, Denies diarrhea, Denies nausea and Denies vomiting Denies dysuria and Denies urinary frequency Neuro Reports Normal hearing present, Denies confusion, Denies dizziness, Denies syncope and Denies weakness Psych Denies confusion Physical Exam Vital Signs: BMI result Body Mass Index 23.8 Const General: No confusion Orientation/consciousness: No confusion HEENT Head: Yes normocephalic Ears: external ears normal and TM's normal bilaterally Face and sinus: Yes normal facial exam Mouth: moist mucous membranes Throat: Yes tonsils normal Eyes Conjunctivae: conjunctivae normal Pupils: Equal, round and reactive pupils present and Pupil accommodation reflex normal Direct Ophthalmoscopy: normal light reflex Neck Neck: No lymphadenopathy Thyroid: Thyroid normal Chest Chest palpation & inspection: normal inspection of the chest Resp Effort & Inspection: normal respiratory effort and no audible wheezes Auscultation: clear to auscultation bilaterally, no crackles, no wheezes and lung sounds not diminished Cardio Rate: regular rate Rhythm: regular rhythm Peripheral pulses: radial pulses present and dorsalis pedis present GI Other: guaiac negative prostate N Palpation (GI): no masses Auscultation: normal bowel sounds and normoactive bowel sounds Male General Exam: Yes normal external exam Skin General skin exam: no rashes or lesions noted Rashes: no rashes Neuro General: No confusion Cranial nerves: Yes Equal, round and reactive pupils present and Yes Normal hearing present Cognition (Neuro): normal cognition Gait exam (Neuro): Normal gait present Motor exam (neuro): 5/5 motor strength present throughout Deep tendon reflexes (DTR's): Right brachioradialis reflex intensity grade: 2+, Left brachioradialis reflex intensity grade: 2+, Right patellar reflex intensity grade: 2+ and Left patellar reflex intensity grade: 2+ Extrem General: No edema Assessment & Plan Assessment & Plan (1) Medicare annual wellness visit, subsequent: Code(s): Z00.00 - Encounter for general adult medical examination without abnormal findings Plan: Patient is advised to eat healthy, keep well hydrated, keep active and have adequate sleep. (2) Mixed hyperlipidemia: Code(s): E78.2 - Mixed hyperlipidemia Plan: Avoid fried foods, chicken skin, eggs, butter margarine, pastries and meat. Be it pork or beef they have a lot of cholesterol LDL goal of less than 130 and triglyceride of less than 150 (3) Peripheral vascular disease: Comment: 2002 - left femoral to popliteal bypass with RSVG 2006 - revision of left femoral to popliteal bypass with vein Code(s): I73.9 - Peripheral vascular disease, unspecified Plan: When sitting down elevate the legs, exercise, and support stockings (4) Erosive gastritis: Code(s): K29.60 - Other gastritis without bleeding Plan: Avoid the foods that causes that usually spicy foods, tomato products, juices, coffee, soda and foods that your sensitive to. After eating do not lie down, allow 3-4 hours before in lie down. And keep the head of bed above 30 degrees to avoid the acid from going up. Plan History of Present Illness The patient is a 69-year-old male presenting for a wellness visit and follow-up on chronic conditions. He has a documented history of hypercholesterolemia, with a goal to maintain LDL below 130 mg/dL and triglycerides below 150 mg/dL. Additionally, he has peripheral vascular disease, previously assessed and stable at this time. The patient manages generalized anxiety disorder with occasional use of alprazolam. Lumbar degenerative disc disease has been managed with recent decompression surgery in 2022, with continued chiropractic and physical therapy leading to improvement. He reports persistent left leg and foot neuropathy attributed to nerve compression, impacting his mobility. Chronic sinusitis, aggravated by nasal polyps, has led to repeated infections treated with antibiotics and steroids. He has a history of erosive gastritis currently treated with pantoprazole, and follows dietary and medication adherence to manage symptoms. Anemia, identified on recent labs, shows improvement in hematologic parameters. Health Maintenance - Cholesterol management with atorvastatin, LDL goal < 130 mg/dL, triglycerides < 150 mg/dL - Regular chiropractic and exercise therapy post-back surgery - Recent anemia showing improvement with no intervention needed - Previous colonoscopy in 2019; results normal - Pneumonia vaccinations updated in 2022 - Shingles vaccination advised; second shot of newer two-part immunization pending - Referral to ENT and dermatology for ongoing sinus and dermatologic issues - Emphasis on healthy lifestyle diet and regular gym activity Social History - Engages in regular exercise with gym attendance almost daily - Active participation in chiropractic therapy weekly - No tobacco use, No alcohol consumption - Reports feeling more comfortable and active following back strengthening exercises Review of Systems - General: Denies dizziness, nausea, or vomiting. Reports improvement in anemia and general good health. - EENT: Reports sinus congestion fluctuations, particularly after antibiotic courses; denies recent hearing loss or noticeable changes except for episodes post these sinus issues. - Cardiovascular: Reports stable peripheral vascular disease, denies chest pain. - Respiratory: Reports no episodes of shortness of breath or coughing. - Gastrointestinal: Reports stable bowel movements with occasional use of stool softeners; denies melena or bright red blood per rectum. Upper GI erosions are stable with ongoing treatment. - Musculoskeletal: Reports manageable lumber pain post-surgery, ongoing left leg and foot neuropathy. - Neurological: Denies frequent headaches or changes, except for longstanding symptoms in lower extremities. Physical Exam General: Cooperative, healthy appearing, comfortable, no acute distress and well developed Orientation: Patient oriented x3 Limitations: No limitations Head: Normal to inspection Ears: Hearing slightly impaired, especially on the right side, with some wetness noted inside the ear Nose: Normal external nose present, but history of nasal polyps and sinus problems Face and sinus: Normal facial exam, but patient reports sinus issues Eyes: Appearance normal, both eyes and all related structures Neck: Normal visual inspection and Yes full ROM Respiratory: Normal respiratory effort and able to speak in complete sentences. Clear to auscultation bilaterally Cardiovascular: Regular rate and rhythm. Normal S1 and S2 GI: Normal to inspection. Soft to palpation and nontender Skin: No rashes or lesions noted, but some keratosis (sun-damaged skin) observed Neuro: Patient oriented x3 Extremities: Normal to inspection, with a history of back surgery and ongoing management for back pain Results - Labs: Hemoglobin 13.4 g/dL, Hematocrit 41.9%, improving anemic parameters, electrolytes, renal and liver functions normal - Tests and Diagnostics: Previous ultrasound of left axilla negative for masses, Colonoscopy in 2020 normal Plan I will manage the patient's hypercholesterolemia with atorvastatin, monitor his LDL and triglyceride levels, and aim for optimal control. Regular ENT consultations will address chronic sinusitis and prevent antibiotic reliance. Post-operative lumbar care involves continued chiropractic therapy and physical fitness to manage neurosensorial issues. Anemia requires observations, given current physiological conditions signaling improvement. Proton pump inhibitor will continue for gastritis management. The patient should focus on completing updates for shingles immunization. Monitor skin for dermatologic evaluation follow-up; encourage additional vitamin C supplementation. Educate on maintaining a balanced diet, proper hydration, and exercise to promote wellness. Patient was informed and verbally consented to the use of an ambient scribe for clinic note documentation during this visit. Discussion Notes The discussion involved addressing the patient's hypercholesterolemia management and ensuring his goals for LDL and triglyceride levels are met through medication adherence. We reviewed his back surgery outcome and the benefits of consistent chiropractic therapy and exercise, noting improved mobility and reduced pain levels. We discussed sinusitis management with ENT follow-up to ensure case stability and prevent recurrent infections. I advised completing the shingles vaccination series for increased protection and discussed skin changes, recommending dermatologic evaluation for potential keratosis. I instructed him to up his vitamin C intake to 500 mg for added immunity support. Detailed potential risks and benefits of proposed treatments and scheduled follow-up arrangements, ensuring the patient is informed of care trajectories. Patient Instructions - Continue taking atorvastatin as prescribed to manage cholesterol - Schedule and attend ENT consultations for sinus management - Continue with chiropractor visits and exercise to maintain back health - Follow up on anemia with periodic blood work - Get the second shot of shingles vaccination - Book dermatology appointment for skin spots examination - Increase vitamin C intake to 500 mg daily - Maintain hydration, nutrition, and regular exercise - Monitor for any new or worsening symptoms and contact the doctor as needed EWIIAAPAAYP OF CARE REVIEWED Orders: Orders Lipid Panel Today E78.00 - Pure hypercholesterolemia, unspecified, R73.02 - Impaired glucose tolerance (oral) UA CC w/rflx Micro + Cult Today R30.0 - Dysuria, R73.02 - Impaired glucose tolerance (oral) Free T4 (Free Thyroxine) Today R73.02 - Impaired glucose tolerance (oral) Prostate Specific Antigen Scr Today R73.02 - Impaired glucose tolerance (oral) H Pylori Breath Test Today K29.60 - Other gastritis without bleeding Hemoglobin A1c Today R73.02 - Impaired glucose tolerance (oral) Complete Blood Count Auto Diff Today R73.02 - Impaired glucose tolerance (oral) Comprehensive Met. Panel Today R73.02 - Impaired glucose tolerance (oral) Vitamin B12 and Folate Today R73.02 - Impaired glucose tolerance (oral) Thyroid Stimulating Hormone Today R73.02 - Impaired glucose tolerance (oral) Quality Reporting (2019) Fall Risk Screening ([facility] 139) Fall risk assessment: No Falls in past year Depression/Bipolar (159/160/161/177) PHQ-9: Total score: 5 Coding Level of Care Code Medicare Subsequent (G0439) Diagnoses Medicare annual wellness visit, subsequent Z00.00 Mixed hyperlipidemia E78.2 Peripheral vascular disease I73.9 Erosive gastritis K29.60 Additional Codes HÉCTOR-7 Assessment Billing - HÉCTOR-7 Assessment Tool: HÉCTOR-7 Assessment 04585 ([id number])
[2024-09-20 09:10] VITALS: BP 112/78; PULSE 109; O2SAT 97; BMI 23.8
--- OUTSIDE RECORDS SUMMARY | 2024-09-20 09:41 | XMS_ITS | Patient Health Record ---
Author Organization [facility] Address [address] [place] [id number] Care Team Providers Care Labor Economics Professor Name Role Phone Maverick Quezada MD Primary Care Provider Michael Clayton [phone] Allergies No Known Allergies Reason For Referral [...] Problem Status W/U Status Risk Notes Problem [id number] Encounter for screening for malignant neoplasm of colon (Z12.11) Active confirmed Problem Dysphagia (08798359) Dysphagia (R13.10) Active confirmed Problem Iron deficiency anemia (79959301) Iron deficiency anemia (D50.9) Active confirmed Problem [id number] Preprocedural examination (Z01.818) Active confirmed Problem Abnormal upper gastrointestinal barium series (R93.3) Active confirmed Problem Chronic gastritis (1962335) Gastritis, chronic (K29.50) Active confirmed Problem [id number] Anemia, unspecif ied type (D64.9) Active confirmed Vital Signs Blood pressure diastolic 00 mm Hg 04/03/2024 Height 71 in 04/03/2024 Blood pressure systolic 00 mm Hg 04/03/2024 Weight 169 lbs 04/03/2024 BMI 23.57 kg/m2 04/03/2024 Encounters Encounter Location Date Provider Diagnosis [facility] [address], [place] [id number] 05/02/2024 Michael Mcdonough Other specified dise ase of esophagus K22.89 ; Dysphagia R13.10 ; GI bleed K92.2 ; Hiatal hernia K44.[address] scan, esophagus R93.3 [facility] [address] [place] [address] 04/03/2024 Michael Mcdonough Dysphagia R13.10 and Abnormal [...] [place] [address] [place] [address] [id number] INO GREER Self - patient is the insured [employer] CLAIM[employer] [address] [place] [address] [id number] INO GREER Self - patient is the insured Medical (General) History Medical History History ICD Code Denies NM,DM,CVA,Lung disease,renal dise ase Anxiety and depression Neg [...] stricture Back Surgery in 2022-Dr. Watkins at [facility]
--- OUTSIDE RECORDS SUMMARY | 2024-09-20 09:41 | XMS_ITS ---
Author Organization [facility] Address [address] [place] [id number] Care Team Providers Care Software Specialist Name Role Phone Po Maverick TORRES Primary Care Provider Michael Clayton [phone] Allergies No Known Allergies Medications Medication SIG [...] Status W/U Status Risk Notes Problem Dysphagia (67620588) Dysphagia (R13.10) Active confirmed Problem Abnormal upper gastrointestinal barium series (R93.3) Active confirmed Vital Signs Blood pressure systolic 00 mm Hg 04/03/20 24 Blood pressure diastolic 00 mm Hg 024 Height 71 in 04/03/2024 Weight 169 lbs 04/03/2024 BMI 23.57 kg/m2 04/03/2024 Encounters Encounter Location Date Provider Diagnosis [facility] [address] [facility] [address] [place] [phone] 04/03/2024 Michael Mcdonough Dysphagia R13.10 and Abnormal [...] INO GREER ADOB:[birth year] (69 yo M)Acc No.[id number]:04/03/2024 Progress Notes Patient:?INO GREER A Provider:?Michael Mcdonough MD :[id number]???Age:69 Y???Sex:Male Javier e:04/03/2024 Address:[address] [place] [address] [id number] Pcp:Maverick Quezada MD Subjective: * Chief Complaints: [...] stricture Back Surgery in 2022-Dr. Watkins at [facility] * Hospitalization/Major Diagno stic Procedure:?No Hospitalization History. [...] past year??Never (0 point),?Points?0,?Interpretation?Negative.?Miscellaneous:?Marital status: . 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 ???Nonsmoker; no sig alcohol. * Medications:?TakingPlavix [...] Procedure Codes:?3017F COLOR ECTAL CA SCREEN DOC [id number] TOBACCO [id number] BP SCR NOT PRFRM REC REASON NOS * Preventive Medicine:? ??Screenings:?Fall Risk Screening?Fall Risk Assessment:?No falls in the past year,?Screening:?No falls in the past year,?Assessment:?Not performed, no reason specified,?Plan of Care:?Not documented, no reason specified.? * Follow Up:?prn * * Sign off status: Completed true * Provider:?Michael Mcdonough MD Date:? 024 Generated for Butch dai/Álvaro/eTransmitting on:?09/20/2024 09:40 AM EDT History and Physical Notes * [...]
--- OUTSIDE RECORDS SUMMARY | 2024-09-20 09:41 | XMS_ITS ---
Author Organization [facility] Address [address] [place] [address] Care Team Providers Care Manager Credit Risk Name Role Phone Po Maverick TORRES Primary Care Provider Michael Clayton [phone] REASON FOR VISIT dysphagia,abn ugi barium series Encounters Encounter Location Date Provider Diagnosis [facility] Outpatient [address] [place] [id number] 05/02/2024 Michael Mcdonough Other specified di sease [...] INO GREER ADOB:[birth year] (69 yo M)Acc No.[id number]:05/02/2024 EGD/MAC Patient:?ZOEY INO [place] Provider:?Michael Mcdonough MD :1955???Age:69 Y???Sex:Male Javier e:05/02/2024 Address[place], [place] Pcp:Maverick Quezada MD Subjective: * Chief Complaints: * ???1. Dysphagia,abn ugi geetha um series. * Medical History:? Objective: * Vitals:? Assessment: * Assessment: 1.?Other specified disease o f esophagus - K22.89 (Primary)???2.?Dysphagia - R13.10???3.?GI bleed - K92.2???4.?Hiatal hernia - K44.9???5.?Abnormal CT scan, esophagus - R93.3??? Plan: * Treatment: * Procedure Codes:?05445 ESOPH ENDOSCOPY, DILATION * * The named appointment provid er may or may not be the originator of this progress note, and it is not deemed complete until electronically signed by the appointment provider. Sign off status: Pending * Provider:?Michael Mcdonough MD Date:? 024 Generated for Butch dai/Álvaro/eTransmitting on:?09/20/2024 09:41 AM EDT
== END 2024-09-20 09:48 | disposition home or self-care (01) ==
LOC: HO.HMCH 09:02
PROVIDERS: PCP Internal Medicine; Visit Provider Internal Medicine
DX: Z00.00 Encounter for general adult medical examination without abnormal findings (principal); E78.2 Mixed hyperlipidemia; I73.9 Peripheral vascular disease, unspecified; K29.60 Other gastritis without bleeding

== ENCOUNTER → 2024-09-20 09:01 | Outpatient (BNVA) | payer MEDICARE, SELFPAY | PROVIDERS: PCP Internal Medicine; Visit Provider Internal Medicine | DX: Z00.00 Encounter for general adult medical examination without abnormal findings (principal); E78.2 Mixed hyperlipidemia; I73.9 Peripheral vascular disease, unspecified; K29.60 Other gastritis without bleeding | CPT/HCPCS: 96127 ==

== ENCOUNTER 2024-09-28 16:05 | Outpatient (AMB) | payer MEDICARE, SELFPAY ==
--- OUTSIDE RECORDS SUMMARY | 2024-09-28 16:07 | XMS_ITS ---
Author Organization [facility] Address [address] [place] [address] Care Team Providers Care Pet Crematory Worker Name Role Phone Po Maverick TORRES Primary Care Provider Michael Clayton [phone] Allergies No Known Allergies Medications Medication SIG [...] Status W/U Status Risk Notes Problem Dysphagia (24653311) Dysphagia (R13.10) Active confirmed Problem Abnormal upper gastrointestinal barium series (R93.3) Active confirmed Vital Signs Blood pressure systolic 00 mm Hg 04/03/20 24 Blood pressure diastolic 00 mm Hg 024 Height 71 in 04/03/2024 Weight 169 lbs 04/03/2024 BMI 23.57 kg/m2 04/03/2024 Encounters Encounter Location Date Provider Diagnosis [facility] [address] [place] [address] 04/03/2024 Michael Mcdonough Dysphagia R13.10 and Abnormal [...] INO GREER ADOB:[birth year] (69 yo M)Acc No.[id number]:04/03/2024 Progress Notes Patient:?INO GREER A Provider:?Michael Mcdonough MD :1955???Age:69 Y???Sex:Male Javier e:04/03/2024 Address:[address] [place] [address] [place] Pcp:Maverick Quezada MD Subjective: * Chief Complaints: [...] stricture Back Surgery in 2022-Dr. Watkins at [facility] * Hospitalization/Major Diagno stic Procedure:?No Hospitalization [...] past year??Never (0 point),?Points?0,?Interpretation?Negative.?Miscellaneous:?Marital status: . 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 ???Nonsmoker; no sig alcohol. * Medications:?TakingPlavix [...] Procedure Codes:?3017F COLOR ECTAL CA SCREEN DOC MDT0474S TOBACCO NON-JOAUJ3845 BP SCR NOT PRFRM REC REASON NOS * Preventive Medicine:? ??Screenings:?Fall Risk Screening?Fall Risk Assessment:?No falls in the past year,?Screening:?No falls in the past year,?Assessment:?Not performed, no reason specified,?Plan of Care:?Not documented, no reason specified.? * Follow Up:?prn * * Sign off status: Completed true * Provider:?Michael Mcdonough MD Date:? 024 Generated for Butch dai/Álvaro/eTransmitting on:?09/28/2024 04:07 PM EDT History and Physical Notes * HPI [...]
--- OUTSIDE RECORDS SUMMARY | 2024-09-28 16:08 | XMS_ITS | Patient Health Record ---
Author Organization [facility] Address [address] [place] [address] Care Team Providers Care Neonatal Icu Coordinator Name Role Phone Maverick Quezada MD Primary Care Provider Michael Clayton [phone] Allergies No Known Allergies Reason For Referral [...] Problem Status W/U Status Risk Notes Problem [id number] Encounter for screening for malignant neoplasm of colon (Z12.11) Active confirmed Problem Dysphagia (08311988) Dysphagia (R13.10) Active confirmed Problem Iron deficiency anemia (17530291) Iron deficiency anemia (D50.9) Active confirmed Problem [id number] Preprocedural examination (Z01.818) Active confirmed Problem Abnormal upper gastrointestinal barium series (R93.3) Active confirmed Problem Chronic gastritis (2435030) Gastritis, chronic (K29.50) Active confirmed Problem 313553602 Anemia, unspecif ied type (D64.9) Active confirmed Vital Signs Blood pressure diastolic 00 mm Hg 04/03/2024 Height 71 in 04/03/2024 Blood pressure systolic 00 mm Hg 04/03/2024 Weight 169 lbs 04/03/2024 BMI 23.57 kg/m2 04/03/2024 Encounters Encounter Location Date Provider Diagnosis [facility] Out[place] [address] [place], [place] [phone] 05/02/2024 Michael Mcdonough Other specified dise ase of esophagus K22.89 ; Dysphagia R13.10 ; GI bleed K92.2 ; Hiatal hernia K44.[address] scan, esophagus R93.3 [facility] [address] [place] [address] 04/03/2024 Michael Mcdonough Dysphagia R13.10 and Abnormal [...] [place] [address] [place] [address] [id number] INO GREER Self - patient is the insured [employer] ATT[employer] CLAIMS [address] [place] [address] [phone] [id number] INO GREER Self - patient is the insured Medical (General) History Medical History History ICD Code Denies ID,DM,CVA,Lung disease,renal dise ase Anxiety and depression Neg [...] stricture Back Surgery in 2022-Dr. Watkins at [facility]
--- OUTSIDE RECORDS SUMMARY | 2024-09-28 16:08 | XMS_ITS ---
Author Organization [facility] Address [address] [place] [address] Care Team Providers Care Director Internal Communications Name Role Phone Po Maverick TORRES Primary Care Provider Michael Clayton [phone] REASON FOR VISIT dysphagia,abn ugi barium series Encounters Encounter Location Date Provider Diagnosis [facility] Outpatient [address] [place] [phone] 05/02/2024 Michael Mcdonough Other specified di sease [...] INO GREER ADOB:[birth year] (69 yo M)Acc No.[id number]:05/02/2024 EGD/MAC Patient:?ZOEY INO [place] Provider:?Michael Mcdonough MD :1955???Age:69 Y???Sex:Male Javier e:05/02/2024 Address[place] Pcp:Maverick Quezada MD Subjective: * Chief Complaints: * ???1. Dysphagia,abn ugi geetha um series. * Medical History:? Objective: * Vitals:? Assessment: * Assessment: 1.?Other specified disease o f esophagus - K22.89 (Primary)???2.?Dysphagia - R13.10???3.?GI bleed - K92.2???4.?Hiatal hernia - K44.9???5.?Abnormal CT scan, esophagus - R93.3??? Plan: * Treatment: * Procedure Codes:?41051 ESOPH ENDOSCOPY, DILATION * * The named appointment provid er may or may not be the originator of this progress note, and it is not deemed complete until electronically signed by the appointment provider. Sign off status: Pending * Provider:?Michael Mcdonough MD Date:? 024 Generated for Butch dai/Álvaro/eTransmitting on:?09/28/2024 04:07 PM EDT
--- NOTE | 2024-09-28 17:35 | MHC.PC.OV ---
Intake Visit Reasons: left ear and sinus issues. [phone] Allergies pollen extracts [POLLEN] Allergy (Intermediate, Verified 09/20/24 09:09) Sneezing Tobacco use date assessed: 08/17/24 Dental Screening Dental Screen Date: 08/17/24 HPI left ear and sinus issues. [phone] HPI Details R ear pain sinus congestion- will see ENT 11/2024 [facility] Medical History (Updated 09/28/24 @ 17:41 by Maverick Quezada MD) Pain in right testicle Otitis externa of right ear Facial rash Right ear pain Sinus congestion Finger pain, left Mass of left axilla RLQ abdominal pain Sebaceous cyst Anxiety History of nasal polyp Recurrent sinusitis Screening for abdominal aortic aneurysm Anal fistula Insomnia Impaired glucose tolerance Peripheral neuropathy Lumbar degenerative disc disease Erectile dysfunction Allergic rhinitis Mixed hyperlipidemia Back pain Anemia Urethral stricture Viral pneumonia Peripheral vascular disease Surgical History (Updated 09/20/24 @ 09:26 by Maverick Quezada MD) History of back surgery History of esophagogastroduodenoscopy (EGD) History of surgery (03/03/21) Hx of sinus surgery Hx of colonoscopy S/P femoral-popliteal bypass surgery H/O arterial bypass of lower limb Family History Father Medical history unknown Mother Medical history unknown Social History Housing: House Alcohol intake: never Patient Tobacco Use Status: Former Tobacco user Tobacco use type: Cigarette Years Smoked: quit 2009 e-Cigarette/Vaping Use: Never Used Second Hand Smoke Exposure: Yes service: No Current occupational status: employed Cognitive needs: No Hearing needs: No Vision needs: Yes Questionnaire Thrive Questionnaire Date Thrive assessed: 09/20/24 I am a: Patient What is your living situation today?: I have a steady place to live Within the past 12 months, did the food you bought not last and you didn't have the money to get more?: Never true Within the past 12 months, did you worry whether your food would run out before you got money to buy more?: Never true Do you have trouble paying for medicines?: No Do you have trouble getting transportation to medical appointments?: No Do you have trouble paying your heating and electricity bill?: No Do you have trouble taking care of your child, family member or friend?: No Do you have trouble with day-to-day activities such as bathing, preparing meals, shopping, managing finances, etc.?: No Are you currently unemployed and looking for a job?: No Are you interested in more education?: No THRIVE Score: 0 AUDIT C Alcohol Use Questionnaire (AUDIT-C) 2. How many drinks containing alcohol do you have on a typical day when you are drinking?: 1 or 2 3. How often do you have six or more drinks on one occasion?: Never Total Score: 0 HÉCTOR-7 AMB Questionnaire HÉCTOR-7 Date HÉCTOR - 7 assessed: 08/17/24 Source: Developed by Drs. Michael Rebollar, Kait Cooper, Abelardo Ruby and colleagues, with an educational faustino from [employer]. Physical exam (Primary Care) Tobacco/Smoking Status: Tobacco use Status Tobacco use date assessed 08/17/24 09/28/24 17:35 Patient Tobacco Use Status Former Tobacco user 09/28/24 17:35 Tobacco use type Cigarette 09/28/24 17:35 e-Cigarette/Vaping Use Never Used 09/28/24 17:35 Thrive Assessment: Date of Thrive Assessment Date Thrive assessed 09/20/24 09/28/24 17:35 Telehealth Telehealth Telehealth Platform: [facility] Location of provider rendering services: practice address Location of patient: address on file Patient Identification confirmed using: Name, : Yes Telehealth method: video Patient verbally consented to treatment: Yes Patient verbally consented to billing insurance company: Yes Patient informed of any privacy concerns related to visit: Yes Minutes spent on Phone/Video with Pt.: 15 Coding Level of Care Code Tele Est Pt Level 3 (68612) Diagnoses Otitis media H66.90 History of nasal polyp Z87.09 Assessment & Plan Assessment & Plan (1) Otitis media: Comment: R Code(s): H66.90 - Otitis media, unspecified, unspecified ear Category: Medical Plan: sent antibiotic and prednison (2) History of nasal polyp: Code(s): Z87.09 - Personal history of other diseases of the respiratory system Category: Medical Plan: Patient will be seeing ENT Plan History of Present Illness The patient is a 69-year-old male presenting with otalgia and associated symptoms. He reports that the right-sided ear pain has worsened over the past week, leading to pain radiating to his neck and down to his shoulder. The pain intensifies when lying on his left side and is aggravated by a sensation of fullness in the ear. He reports previous episodes managed with antibiotics and prednisone, but symptoms have recurred. The patient has a history of nasal polyps, which were surgically removed in the past, with similar symptoms to what he currently experiences. He is awaiting consultation with an diathermy equipment repairer and is scheduled for a reassessment in November, with hopes for an earlier slot should a cancellation occur. Review of Systems - Ear/Nose/Throat: Reports right otalgia, sinus congestion, and occasional bloody nose. - Musculoskeletal: Reports pain radiating to the neck and shoulder. - Respiratory: Denies shortness of breath or cough. - Neurological: Denies headaches or vision changes. Plan The patient will be treated for recurrent otalgia with Zithromax and a course of prednisone, with an ordered sinus X-ray to evaluate possible recurrent sinonasal polyps. Prescriptions are sent to his pharmacy. Close follow-up is advised to adjust treatment and manage symptoms until his ENT appointment in November. Patient was informed and verbally consented to the use of an ambient scribe for clinic note documentation during this visit. Discussion Notes I discussed with the patient his recurrent otalgia and associated symptoms, suggesting the possible role of recurrent nasal polyps. We reviewed his past successful treatment with antibiotics and prednisone, and I proposed continuing this regimen until further ENT evaluation. A sinus X-ray was recommended to discern the presence of polyps, and prescriptions for Zithromax and prednisone were sent to his designated pharmacy. I emphasized the importance of staying well-hydrated and maintaining communication until his ENT consult. Follow-up arrangements were made to monitor symptom alleviation or recurrence. Patient Instructions - Take the prescribed Zithromax and prednisone as directed. - Get a sinus X-ray as scheduled. - Monitor symptoms and stay hydrated. - Contact the clinic or seek medical attention if symptoms worsen. - Follow up with the ENT when an appointment becomes available. - Maintain communication with the clinic for updates and symptom monitoring. Orders: Orders XR sinus min 3V Today H66.90 - Otitis media, unspecified, unspecified ear Medications: New azithromycin (Zithromax) For 250 mg dose pack: take 500 mg today (day 1), then 250 mg for 4 days (days 2-5) PO 6 tabs 0RF H66.90 - Otitis media, unspecified, unspecified ear prednisone 4 tabs QD x 2 days then 3 tabs QD x 2 days then 2 tabs Qd x 2 days then 1 tab QD x 2 days PO daily; 20 tabs 0RF H66.90 - Otitis media, unspecified, unspecified ear, J45.909 - Unspecified asthma, uncomplicated prednisone 4 tabs QD x 2 days then 3 tabs QD x 2 days then 2 tabs Qd x 2 days then 1 tab QD x 2 days PO daily; 20 tabs 0RF H66.90 - Otitis media, unspecified, unspecified ear, J45.909 - Unspecified asthma, uncomplicated
== END 2024-09-28 18:55 | disposition home or self-care (01) ==
LOC: HO.HMCH 16:05
PROVIDERS: PCP Internal Medicine; Visit Provider Internal Medicine
DX: H66.91 Otitis media, unspecified, right ear (principal); Z87.09 Personal history of other diseases of the respiratory system

== ENCOUNTER → 2024-09-28 16:05 | Outpatient (BNVA) | payer MEDICARE, SELFPAY | PROVIDERS: PCP Internal Medicine; Visit Provider Internal Medicine ==

== ENCOUNTER 2025-02-11 07:29 | Outpatient (AMB) | payer MEDICARE, SELFPAY ==
--- OUTSIDE RECORDS SUMMARY | 2024-05-02 06:30 | XMS_ITS ---
Author Organization [facility] Address [address] [place] [id number] Care Team Providers Care Manager Product Support Name Role Phone Po Maverick TORRES Primary Care Provider Michael Clayton [phone] REASON FOR VISIT dysphagia,abn ugi barium series Encounters Encounter Location Date Provider Diagnosis [facility] [place] Outpatient [address] [place] [id number] 05/02/2024 Michael Mcdonough Other specified di sease [...] Progress Notes * INO GREER ADOB:[birth year] (69 yo M)Acc No.[id number]:05/02/2024 EGD/MAC Patient: Tiana CORTES INO [place] Provider: Amanuel Mcdonough MD :1955 A ge:69 Y S ex:Male Date:05/02/2024 Address[place], [id number] Pcp:Maverick Quezada MD Subjective: * Chief Complaints: * 1 . Dysphagia,abn ugi barium series. * Medical History: Objective: * Vitals: Assessment: * Assessment: 1. O ther specified disease of esophagus - K22.89 (Primary) 2 . D ysphagia - R13.10 3 . G I bleed - K92.2 4 . H iatal hernia - K44.9? 5. A bnormal CT scan, esophagus - R93.3 Plan: * Treatment: * Procedure Codes: 4 3249 ESOPH ENDOSCOPY, DILATION * * The named appointment provid er may or may not be the originator of this progress note, and it is not deemed complete until electronically signed by the appointment provider. Sign off status: Pending * Provider: Amanuel Mcdonough MD Date: 07/03/2023 Generated for Shellyi malaika/Álvaro/Danielsmitting on: 0 02/11/2025 07:31 AM EDT
--- NOTE | 2025-02-11 07:30 | MHC.OFFWIV ---
Intake Vital Signs 02/11/25 07:31 Height 5 ft 11 in Weight 173 lb BMI 24.1 BP 136/70 Blood Pressure Location Rt brachial Position Sitting Respiration 16 Pulse 91 Pulse Source Pulse Oximeter Temp 97.8 F Temp Source Oral Pulse Oximetry (%) 98 Oxygen Delivery Method Room Air Intake Visit Reasons: EP Ear infection? Intake Note: Pt is here today c/o Rt ear pain [id number] Patient Tobacco Use Status: Former Tobacco user Allergies pollen extracts (POLLEN) Allergy (Intermediate, Verified 09/20/24 09:09) Sneezing HPI HPI Comments History of Present Illness Details 69 y/o Male patient who presents to the walk in clinic with c/o Chronic recurrent Right Ear Pain associated with Sinus Congestion for 3 weeks now. Reports that the right-sided ear pain has worsened over the past week, leading to pain radiating to his neck and down to his shoulder. The pain worsen when lying on his left side and is aggravated by a sensation of fullness in the ear. He does have Ringing in his Right Ear and mild Headaches. He had multiple Visits with PCP with similar episodes managed with antibiotics and prednisone, but symptoms have recurred. He was referred to ENT but he missed his appointment back in November. He has not called back to reschedule. Reports that he had some Dental Work done ~ 1 month ago. [facility] Medical History (Updated 02/11/25 @ 08:07 by Lily Reyes NP) Otogenic otalgia of right ear Pain in right testicle Otitis externa of right ear Facial rash Right ear pain Sinus congestion Finger pain, left Mass of left axilla RLQ abdominal pain Sebaceous cyst Anxiety History of nasal polyp Recurrent sinusitis Screening for abdominal aortic aneurysm Anal fistula Insomnia Impaired glucose tolerance Peripheral neuropathy Lumbar degenerative disc disease Erectile dysfunction Allergic rhinitis Mixed hyperlipidemia Back pain Anemia Urethral stricture Viral pneumonia Peripheral vascular disease Surgical History (Updated 09/20/24 @ 09:26 by Maverick Quezada MD) History of back surgery History of esophagogastroduodenoscopy (EGD) History of surgery (03/03/21) Hx of sinus surgery Hx of colonoscopy S/P femoral-popliteal bypass surgery H/O arterial bypass of lower limb Family History Father Medical history unknown Mother Medical history unknown Social History Housing: House Alcohol intake: never Patient Tobacco Use Status: Former Tobacco user Tobacco use type: Cigarette Years Smoked: quit 2009 e-Cigarette/Vaping Use: Never Used Second Hand Smoke Exposure: Yes service: No Current occupational status: employed Cognitive needs: No Hearing needs: No Vision needs: Yes Review of Systems Const All systems reviewed & are unremarkable except as noted in HPI and below Physical Exam Vital Signs: Last Vital Signs Temp 97.8 F 02/11/25 07:31 Pulse 91 02/11/25 07:31 Resp 16 02/11/25 07:31 BP 136/70 02/11/25 07:31 Pulse Ox 98 02/11/25 07:31 Oxygen Delivery Method Room Air 02/11/25 07:31 BMI result Body Mass Index 24.1 Const General: comfortable and no acute distress Nutritional Appearance: well nourished Orientation/consciousness: patient oriented x3 HEENT Head: Yes normocephalic Ears: external ears normal and TM's normal bilaterally General nose exam: Normal external nose present and No nasal discharge present Face and sinus: Yes normal facial exam Mouth: moist mucous membranes Throat: Yes uvula midline Resp Effort & Inspection: normal respiratory effort Auscultation: clear to auscultation bilaterally Cardio Heart sounds: S1 normal heart sound present and S2 normal heart sound present Neuro General: patient oriented x3, gait normal and moves all extremities Psych Speech and movement: Normal speech and movement present Assessment & Plan Assessment & Plan (1) Otogenic otalgia of right ear: Code(s): H92.01 - Otalgia, right ear Plan: Exam Unremarkable - Both Ears clean and no infection. I explained to the Patient that he did not have any ear infection at this time - but insisted on having Abx. Ordered Otic Drops per request. Advised to schedule an appointment with ENT F/U with PCP. Medications: New ciprofloxacin-dexamethasone 0.3-0.1 % 4 drps otic (ear) right BID 7.5 mL 0RF 7 days H92.01 - Otalgia, right ear Coding Level of Care Code Est Pt Level 4 (37675) Diagnoses Otogenic otalgia of right ear H92.01 Time Spent (min) 20
[2025-02-11 07:31] VITALS: BP 136/70; PULSE 91; RESP 16; TEMP 36.6; O2SAT 98; BMI 24.1
--- OUTSIDE RECORDS SUMMARY | 2025-02-11 07:31 | XMS_ITS | Patient Health Record ---
Author Organization [facility] Address [address] [place] [address] Care Team Providers Care Reactor Operator Name Role Phone Maverick Quezada MD Primary Care Provider Michael Clayton [phone] Allergies No Known Allergies Reason For Referral [...] Problem Status W/U Status Risk Notes Problem 081926852 Encounter for screening for malignant neoplasm of colon (Z12.11) Active confirmed Problem Dysphagia (04911024) Dysphagia (R13.10) Active confirmed Problem Iron deficiency anemia (96790181) Iron deficiency anemia (D50.9) Active confirmed Problem 358718836178083 Preprocedural examination (Z01.818) Active confirmed Problem Abnormal upper gastrointestinal barium series (R93.3) Active confirmed Problem Chronic gastritis (2243197) Gastritis, chronic (K29.50) Active confirmed Problem 546451704 Anemia, unspecif ied type (D64.9) Active confirmed Vital Signs Blood pressure diastolic 00 mm Hg 04/03/2024 Height 71 in 04/03/2024 Blood pressure systolic 00 mm Hg 04/03/2024 Weight 169 lbs 04/03/2024 BMI 23.57 kg/m2 04/03/2024 Encounters Encounter Location Date Provider Diagnosis [facility] [place] [address] [place], [place] [phone] 05/02/2024 Michael Mcdonough Other specified dise ase of esophagus K22.89 ; Dysphagia R13.10 ; GI bleed K92.2 ; Hiatal hernia K44.[address] scan, esophagus R93.3 [facility] [address] [place] [address] 04/03/2024 Michael Mcdonough Dysphagia R13.10 and Abnormal [...] [place] [address] [place] [address] [id number] INO GREER Self - patient is the insured [employer] ATT[employer] CLAIMS [address] [place] [address] [id number] INO GREER Self - patient is the insured Medical (General) History Medical History History ICD Code Denies SC,DM,CVA,Lung disease,renal dise ase Anxiety and depression Neg [...] stricture Back Surgery in 2022-Dr. Watkins at [facility]
== END 2025-02-11 08:14 | disposition home or self-care (01) ==
PROVIDERS: PCP Internal Medicine; Visit Provider Nurse Practitioner Family
DX: H92.01 Otalgia, right ear (principal)

== ENCOUNTER → 2025-02-11 07:29 | Outpatient (BNVA) | payer MEDICARE, SELFPAY | PROVIDERS: PCP Internal Medicine; Visit Provider Nurse Practitioner Family | DX: H92.01 Otalgia, right ear (principal); R51.9 Headache, unspecified | CPT/HCPCS: 99212 ==

== ENCOUNTER 2025-03-22 08:46 | Outpatient (AMB) | payer MEDICARE, SELFPAY ==
[2025-03-22 08:51] VITALS: BP 138/82; PULSE 94; TEMP 36.3; O2SAT 97; BMI 24.2
--- NOTE | 2025-03-22 08:51 | A.OFFPC_ITS ---
Vital Signs 03/22/25 08:51 Height 5 ft 11 in Weight 173 lb 4 oz BMI 24.2 BP 138/82 Blood Pressure Location Lt brachial Position Sitting Pulse 94 Pulse Source Pulse Oximeter Temp 97.3 F Temp Source Temporal Artery Scan Pulse Oximetry (%) 97 Oxygen Delivery Method Room Air Intake Visit Reasons: Peripheral vascular disease Allergies pollen extracts (POLLEN) Allergy (Intermediate, Verified 03/22/25 08:53) Sneezing Medication List - Last Reconciled 03/22/25 by Maverick Quezada MD amoxicillin-pot clavulanate 875-125 mg 1 tab PO BID ascorbate calcium (vitamin C) 500 mg PO DAILY atorvastatin 80 mg PO DAILY 90 days cholecalciferol (vitamin D3) (Vitamin D3) 25 mcg PO DAILY ciprofloxacin-dexamethasone 0.3-0.1 % 4 drps otic (ear) right BID 7 days clopidogrel (Plavix) 75 mg PO DAILY fexofenadine 180 mg PO DAILY multivitamin 1 tab PO DAILY niacin 1,500 mg PO DAILY pantoprazole 20 mg PO DAILY prednisone 4 tabs QD x 2 days then 3 tabs QD x 2 days then 2 tabs Qd x 2 days then 1 tab QD x 2 days PO daily; tramadol 50 mg PO Q8H PRN 90 days trazodone 100 mg PO BEDTIME 90 days triamcinolone acetonide (Nasacort Allergy) 2 sprays intranasal DAILY Tobacco use date assessed: 03/22/25 Fall risk assessment: No Falls in past year Last assessed Fall Risk: 03/22/25 Dental Screening Dental Screen Date: 03/22/25 Did you have a dental visit in the last 12 months?: Yes Did you have a dental problem in the last 6 months where you did not have access to dental care?: No Was dental information given to patient?: Patient has dentist HPI Peripheral vascular disease HPI Details sinus congestion monthsno fevers, on allergy med, and nasal spray- will be seeing ENT. , for the low back , gym and chiropractor being seen, but back is painful [facility] Medical History (Updated 03/22/25 @ 09:36 by Maverick Quezada MD) Sinus congestion Otogenic otalgia of right ear Pain in right testicle Otitis externa of right ear Facial rash Right ear pain Finger pain, left Mass of left axilla RLQ abdominal pain Sebaceous cyst Anxiety History of nasal polyp Recurrent sinusitis Screening for abdominal aortic aneurysm Anal fistula Insomnia Impaired glucose tolerance Peripheral neuropathy Lumbar degenerative disc disease Erectile dysfunction Allergic rhinitis Mixed hyperlipidemia Back pain Anemia Urethral stricture Viral pneumonia Peripheral vascular disease Surgical History History of back surgery History of esophagogastroduodenoscopy (EGD) History of surgery (03/03/21) Hx of sinus surgery Hx of colonoscopy S/P femoral-popliteal bypass surgery H/O arterial bypass of lower limb Family History Father Medical history unknown Mother Medical history unknown Social History Housing: House Alcohol intake: never Patient Tobacco Use Status: Former Tobacco user Tobacco use type: Cigarette Years Smoked: quit 2009 e-Cigarette/Vaping Use: Never Used Second Hand Smoke Exposure: Yes service: No Current occupational status: employed Cognitive needs: No Hearing needs: No Vision needs: Yes Questionnaire PHQ-9 Over the last 2 weeks, how often have you been bothered by any of the following problems? 1. Little interest or pleasure in doing things: not at all 2. Feeling down, depressed, or hopeless: not at all 3. Trouble falling or staying asleep, or sleeping too much: more than half the days 4. Feeling tired or having little energy: several days 5. Poor appetite or overeating: not at all 6. Feeling bad about yourself - or that you are a failure or have let yourself or your family down: not at all 7. Trouble concentrating on things, such as reading the newspaper or watching television: more than half the days 8. Moving or speaking so slowly that other people could have noticed. Or the opposite - being so fidgety or restless that you have been moving around a lot more than usual: not at all 9. Thoughts that you would be better off or of hurting yourself in some way: not at all Total score: 5 Source: Developed by Drs. Michael Rebollar, Kait Cooper, Abelardo Ruby and colleagues, with an educational faustino from [employer]. Thrive Questionnaire Date Thrive assessed: 09/20/24 I am a: Patient What is your living situation today?: I have a steady place to live Within the past 12 months, did the food you bought not last and you didn't have the money to get more?: Never true Within the past 12 months, did you worry whether your food would run out before you got money to buy more?: Never true Do you have trouble paying for medicines?: No Do you have trouble getting transportation to medical appointments?: No Do you have trouble paying your heating and electricity bill?: No Do you have trouble taking care of your child, family member or friend?: No Do you have trouble with day-to-day activities such as bathing, preparing meals, shopping, managing finances, etc.?: No Are you currently unemployed and looking for a job?: No Are you interested in more education?: No Please select the resources that you would like help with: None Currently or been in a relationship where the following occur: I choose not to answer THRIVE Score: 0 AUDIT C Alcohol Use Questionnaire (AUDIT-C) 1. How often do you have a drink containing alcohol?: Monthly or less 2. How many drinks containing alcohol do you have on a typical day when you are drinking?: 1 or 2 3. How often do you have six or more drinks on one occasion?: Never Total Score: 1 HÉCTOR-7 AMB Questionnaire HÉCTOR-7 Date HÉCTOR - 7 assessed: 08/17/24 Feeling nervous, anxious, or on edge: 3 = Nearly every day Not being able to stop or control worryin = Several days Worrying too much about different things: 1 = Several days Trouble relaxin = Several days Being so restless that it is hard to sit still: 0 = Not at all Becoming easily annoyed or irritable: 1 = Several days Feeling afraid as if something awful might happen: 0 = Not at all Total HÉCTOR-7 score (0-4 normal; 5-9 mild; 10-14 moderate; 15-21 severe): 7 Source: Developed by Drs. Michael Rebollar, Kait Cooper, Abelardo Ruby and colleagues, with an educational faustino from [employer]. Physical exam (Primary Care) Vital Signs: Last Vital Signs Temp 97.3 F 03/22/25 08:51 Pulse 94 03/22/25 08:51 BP 138/82 03/22/25 08:51 Pulse Ox 97 03/22/25 08:51 Oxygen Delivery Method Room Air 03/22/25 08:51 BMI result Body Mass Index 24.2 Tobacco/Smoking Status: Tobacco use Status Tobacco use date assessed 03/22/25 03/22/25 08:54 Patient Tobacco Use Status Former Tobacco user 03/22/25 08:54 Tobacco use type Cigarette 03/22/25 08:54 e-Cigarette/Vaping Use Never Used 03/22/25 08:54 PHQ-9: PHQ-9 Score PHQ-9: Total score 5 03/22/25 09:26 Thrive Assessment: Date of Thrive Assessment Date Thrive assessed 09/20/24 03/22/25 08:54 Currently or been in a relationship where the following occur: I choose not to answer Const General: alert; No acute distress Eyes Conjunctivae: conjunctivae normal Resp Auscultation: clear to auscultation bilaterally Cardio Rate: regular rate Rhythm: regular rhythm GI Inspection: Yes normal to inspection Extrem General: Yes normal to inspection and No edema Coding Level of Care Code Est Pt Level 4 (62454) Complex EM visit Add On G2211 Diagnoses Mixed hyperlipidemia E78.2 Impaired glucose tolerance R73.02 Generalized anxiety disorder F41.1 Erosive gastritis K29.60 Anemia D64.9 Lumbar degenerative disc disease M51.36 Sinus congestion R09.81 Assessment & Plan Assessment & Plan (1) Mixed hyperlipidemia: Code(s): E78.2 - Mixed hyperlipidemia Category: Medical Plan: Avoid fried foods, chicken skin, eggs, butter margarine, pastries and meat. Be it pork or beef they have a lot of cholesterol on atorvastatin patient needs blood work LDL goal of less than 130 and triglyceride of less than 150 (2) Impaired glucose tolerance: Code(s): R73.02 - Impaired glucose tolerance (oral) Category: Medical Plan: Decrease the amount of carbohydrate intake, pasta, bread, rice and potatoes are all sugar and that is aside from all the sweet stuff, remember that fruits are good but they are Sweet also. (3) Generalized anxiety disorder: Code(s): F41.1 - Generalized anxiety disorder Category: Medical Plan: Continue present medications (4) Erosive gastritis: Code(s): K29.60 - Other gastritis without bleeding Category: Medical Plan: Avoid the foods that causes that usually spicy foods, tomato products, juices, coffee, soda and foods that your sensitive to. After eating do not lie down, allow 3-4 hours before in lie down. And keep the head of bed above 30 degrees to avoid the acid from going up. (5) Anemia: Code(s): D64.9 - Anemia, unspecified Category: Medical Plan: Advised to monitor, get the blood work (6) Lumbar degenerative disc disease: Comment: steroid injection 02/19/2021 L4-L5 decompression bilateral Dr. Knight Oh 10/01/2022 for lumbar stenosis with radiculopathy/neurogenic claudication Code(s): M51.36 - Other intervertebral disc degeneration, lumbar region Category: Medical Plan: Continue to be active (7) Sinus congestion: Code(s): R09.81 - Nasal congestion Category: Medical Plan History of Present Illness The patient is a 69-year-old male presenting for a follow-up visit to address multiple ongoing health issues, including sinusitis and back pain. The patient has a history of hypercholesterolemia, managed with atorvastatin, and requires regular blood work to monitor cholesterol levels, aiming for LDL less than 130 mg/dL and triglycerides less than 150 mg/dL. He also has impaired glucose tolerance, necessitating continued monitoring and medication adherence. The patient reports chronic lumbar degenerative disc disease, which has been managed with previous back surgery and regular care support representative. He experiences persistent back pain radiating to both legs, exacerbated by physical activity, and is considering further evaluation by a neurosurgeon, including a potential MRI of the lumbar spine. The patient has a history of erosive gastritis and anal fistula, which are currently stable. He also has generalized anxiety disorder, which is being managed with current medications. Recently, the patient experienced a significant inflammatory response following simultaneous administration of flu, COVID-19, and shingles vaccines, resulting in exacerbated musculoskeletal pain. This response is improving over time, but the patient remains cautious about future vaccinations. The patient reports ongoing sinusitis with green nasal discharge and is considering antibiotic treatment to manage symptoms until his upcoming ENT appointment. He uses nasal sprays and occasionally takes [id number] medications for relief. Health Maintenance - Vaccinations: Received flu, COVID-19, and shingles vaccines recently. - Blood work: Regular monitoring for cholesterol and glucose levels. Social History - Exercise: Regular gym attendance and chiropractic visits for back management. - Diet: Attempting an anti-inflammatory diet, avoiding pastries, and incorporating healthier snacks like celery and almond butter. Review of Systems - Cardiovascular: Denies chest pain or palpitations. - Respiratory: Denies cough or dyspnea. - Gastrointestinal: Reports no recent gastrointestinal symptoms. - Musculoskeletal: Reports back pain radiating to both legs, exacerbated by physical activity. - Neurological: Denies headaches or dizziness. - ENT: Reports sinusitis with green nasal discharge, denies fever or chills. Physical Exam Results - Labs: Previous blood work indicated anemia. Plan Patient was informed and verbally consented to the use of an ambient scribe for clinic note documentation during this visit. 1. Hypercholesterolemia The patient is on atorvastatin for hypercholesterolemia management, with a target LDL cholesterol of less than 130 mg/dL and triglycerides less than 150 mg/dL. Regular blood work is required to monitor lipid levels. 2. Lumbar Degenerative Disc Disease The patient experiences chronic back pain radiating to both legs, managed with care support representative and regular gym exercises. A referral to a neurosurgeon is planned, and an MRI of the lumbar spine may be considered for further evaluation. 3. Sinusitis The patient reports ongoing sinusitis with green nasal discharge and is considering antibiotic treatment until the upcoming ENT appointment. Prednisone may be used to reduce inflammation and enhance antibiotic efficacy. 4. Post-Vaccination Inflammatory Response The patient experienced an inflammatory response following flu, COVID-19, and shingles vaccinations, resulting in musculoskeletal pain. Symptoms are improving, and the patient is advised to monitor for any persistent issues. Discussion Notes During the visit, we discussed the management of hypercholesterolemia with atorvastatin and the importance of regular blood work to monitor lipid levels. We also addressed the patient's chronic back pain and the potential need for an MRI and neurosurgical evaluation. For sinusitis, we considered antibiotic treatment and the use of prednisone to reduce inflammation. The patient was informed about the inflammatory response following recent vaccinations and advised to monitor symptoms. We also discussed the importance of maintaining an anti-inflammatory diet and regular exercise to manage overall health. Patient Instructions - Continue taking atorvastatin as prescribed and schedule regular blood work to monitor cholesterol levels. - Follow up with a neurosurgeon for back pain evaluation and consider an MRI if recommended. - Use nasal sprays and consider antibiotics for sinusitis as discussed. - Monitor symptoms following vaccinations and report any persistent issues. - Maintain an anti-inflammatory diet and regular exercise routine. Orders: Orders MR lumbar spine wo con Today M51.360 - Other intervertebral disc degeneration, lumbar region with discogenic back pain only Referrals Neurosurgery Referral M51.360 - Other intervertebral disc degeneration, lumbar region with discogenic back pain only Medications: New prednisone 4 tabs QD x 2 days then 3 tabs QD x 2 days then 2 tabs Qd x 2 days then 1 tab QD x 2 days PO daily; 20 tabs 0RF J45.909 - Unspecified asthma, uncomplicated, R09.81 - Nasal congestion amoxicillin-pot clavulanate 875-125 mg 1 tab PO BID 14 tabs 0RF R09.81 - Nasal congestion
== END 2025-03-22 09:48 | disposition home or self-care (01) ==
LOC: HO.HMCH 08:46
PROVIDERS: PCP Internal Medicine; Visit Provider Internal Medicine
DX: E78.2 Mixed hyperlipidemia (principal); R73.02 Impaired glucose tolerance (oral); F41.1 Generalized anxiety disorder; K29.60 Other gastritis without bleeding; D64.9 Anemia, unspecified; M51.369 Other intervertebral disc degeneration, lumbar region without mention of lumbar back pain or lower extremity pain; R09.81 Nasal congestion

== ENCOUNTER → 2025-03-22 08:46 | Outpatient (BNVA) | payer MEDICARE, SELFPAY | PROVIDERS: PCP Internal Medicine; Visit Provider Internal Medicine | DX: E78.2 Mixed hyperlipidemia (principal); R73.02 Impaired glucose tolerance (oral); F41.1 Generalized anxiety disorder; K29.60 Other gastritis without bleeding; D64.9 Anemia, unspecified; M51.369 Other intervertebral disc degeneration, lumbar region without mention of lumbar back pain or lower extremity pain; R09.81 Nasal congestion | CPT/HCPCS: 99212 ==

== ENCOUNTER 2025-04-29 10:59 | Emergency (ER) | payer MEDICARE, SELFPAY ==
[2025-04-29 11:04] VITALS: BP 163/87; PULSE 86; RESP 18; TEMP 36.1; O2SAT 98; BMI 23.9
--- NOTE | 2025-04-29 11:06 | ED.GENADULT ---
HPI - General Adult General Chief complaint: General Medical Stated complaint: something stuck in throat Time Seen by Provider: 04/29/25 13:01 Source: patient and old records reviewed Mode of arrival: ambulatory Limitations: no limitations History of Present Illness ED Provider: PATRIC PENA narrative: 70-year-old male with past medical history of peripheral arterial disease on Plavix, esophageal dilatation back in April of 2024, gastritis, anxiety, anemia, lumbar back pain, HLD, here with c/o taking a large generic Paige pill about 1.5 hours prior to arrival. He states he felt like it is stuck now. He can not swallow his saliva. He states this happened 1 time before and he responded to an injection. He has been dilated in the past with Dr. Mcdonough but that was back in April of 2024. Denies eating any solid food this morning states he only had a protein smoothie. He has no other symptoms MD complaint: Stuck pill Onset (ago): hour(s) (1.5) Location: mouth Radiation: non-radiation Severity: moderate Pain Consistency: constant Relieving factors: none Exacerbating factors: other (Attempting to swallow) Associated symptoms: denies other symptoms Treatments prior to arrival: none Related Data Home Medications ?Medication ?Instructions ?Recorded ?Confirmed cholecalciferol (vitamin D3) 25 25 mcg PO DAILY 04/07/20 03/22/25 mcg (1,000 unit) capsule (Vitamin D3) ascorbate calcium (vitamin C) 500 500 mg PO DAILY 09/20/24 03/22/25 mg tablet multivitamin 1 tab PO DAILY 09/20/24 03/22/25 niacin 500 mg tablet 1,500 mg PO DAILY 09/20/24 03/22/25 Previous Rx's ?Medication ?Instructions ?Recorded fexofenadine 180 mg tablet 180 mg PO DAILY #90 tabs 03/05/22 triamcinolone acetonide 55 mcg 2 spray intranasal DAILY #16.9 mL 03/05/22 nasal spray aerosol (Nasacort Allergy) atorvastatin 80 mg tablet 80 mg PO DAILY 90 days #90 tabs 03/17/24 clopidogrel 75 mg tablet (Plavix) 75 mg PO DAILY #90 tabs 11/08/24 trazodone 100 mg tablet 100 mg PO BEDTIME 90 days #90 tabs 11/20/24 ciprofloxacin 0.3 %-dexamethasone 4 drp otic (ear) right BID 7 days 02/11/25 0.1 % ear drops,suspension #7.5 mL amoxicillin 875 mg-potassium 1 tab PO BID #14 tabs 03/22/25 clavulanate 125 mg tablet prednisone 10 mg tablet See Rx Instructions PO DAILY #20 03/22/25 tabs pantoprazole 20 mg tablet,delayed 20 mg PO DAILY #30 tabs 04/18/25 release sucralfate 100 mg/mL oral 1 g (10 mL) PO BID 7 days #140 mL 04/29/25 suspension tramadol 50 mg tablet 50 mg PO Q8H PRN Pain 90 days #270 04/30/25 tabs Allergies Allergy/AdvReac Type Severity Reaction Status Date / Time pollen extracts (POLLEN) Allergy Intermediate Sneezing Verified 04/29/25 11:05 Review of Systems Review of Systems: Yes all other systems are reviewed and are negative [facility] Past Medical History Medical History (Updated 04/30/25 @ 00:01 by Shruti Mckee) Sinus congestion Otogenic otalgia of right ear Pain in right testicle Otitis externa of right ear Facial rash Right ear pain Finger pain, left Mass of left axilla RLQ abdominal pain Sebaceous cyst Anxiety History of nasal polyp Recurrent sinusitis Screening for abdominal aortic aneurysm Anal fistula Insomnia Impaired glucose tolerance Peripheral neuropathy Lumbar degenerative disc disease Erectile dysfunction Allergic rhinitis Mixed hyperlipidemia Back pain Anemia Urethral stricture Viral pneumonia Peripheral vascular disease Surgical History History of back surgery History of esophagogastroduodenoscopy (EGD) History of surgery (03/03/21) Hx of sinus surgery Hx of colonoscopy S/P femoral-popliteal bypass surgery H/O arterial bypass of lower limb Family History Family History Father Medical history unknown Mother Medical history unknown Social History Social History Housing: House Alcohol intake: never Patient Tobacco Use Status: Former Tobacco user Tobacco use type: Cigarette Years Smoked: quit 2009 e-Cigarette/Vaping Use: Never Used Second Hand Smoke Exposure: Yes Advance Directives: Yes Advance Directives Information Provided: Yes Advance Directives on File: No Do you have a plan to hurt others: No Plan service: No Current occupational status: employed Cognitive needs: No Hearing needs: No Vision needs: Yes Physical Exam ED Vital Signs: Vital Signs - 24 hr 04/29/25 11:04 Temperature 97 F Pulse Rate 86 Respiratory Rate 18 Blood Pressure 163/87 H Pulse Oximetry 98 Oxygen Delivery Method Room Air BMI result Body Mass Index 23.9 Appearance: Alert. Oriented X3. Unable to tolerate his saliva, mild acute distress. Eyes: Pupils equal, round and reactive to light. ENT: Pharynx normal. Neck: Normal inspection. Neck supple. CVS: Normal heart rate and rhythm. Pulses normal. Respiratory: No respiratory distress. Breath sounds normal. Abdomen: Soft and nontender. Skin: Skin warm and dry. Normal skin color. Extremities: No lower extremity edema. Neuro: Oriented X 3. No motor deficit. No sensory deficit. Course Course Course Narrative: This is a rapid medical exam performed by Tyson Seo NP: Additional HPI, ROS, PE not included below will be deferred to primary provider. Patient is a 70y/o M presenting with foreign body to esophagus, states he was taking his genergic Paige and it got stuck. Spitting into bag in triage. History of same in the past, has seen Dr. Mcdonough for this. Plan: labs Medications Administered Discontinued Medications Generic Name Dose Route Start Last Admin Trade Name Freq PRN Reason Stop Dose Admin Glucagon 0.5 mg 04/29/25 13:00 04/29/25 13:19 Glucagon Hcl 1 Mg Vial IVPUSH 04/29/25 13:01 0.5 mg ONCE ONE Administration Lactated Ringer's 1,000 mls @ 999 mls/hr 04/29/25 13:00 04/29/25 13:55 Lr IV 04/29/25 14:00 Infused .Q1H1M ONE Infusion Medical Decision Making Medical Decision Making MDM Narrative: 70-year-old male with past medical history of peripheral arterial disease on Plavix, esophageal dilatation back in April of 2024, gastritis, anxiety, anemia, lumbar back pain, HLD, here with c/o taking a generic Paige pill about 1-1/2 hours prior to arrival now can not tolerate his saliva and feels like he is choking. He states this has happened before and he responded to an injection. He last had esophageal dilation back in April of 2024. States he did not eat anything at all today only had a protein smoothie and his pill. Differential Diagnosis Differential Diagnoses: The differential diagnosis associated with the presentation includes Pill esophagitis, impaction, esophageal stricture Admission/Observation Consideration of admission/observation: Escalation of care including admission/observation considered After glucagon injection patient is doing much better and able to tolerate p.o. at this time I am going to start him on Carafate and refer to GI. He agrees to a soft diet Lab Data MDM Lab Attestation statement: I reviewed the patient's lab results. 04/29/25 11:42 04/29/25 11:42 Labs: Lab Results 04/29/25 Range/Units 11:42 WBC 8.9 (4.8-10.8) X10*3/uL RBC 5.06 (4.60-5.80) X10*6/uL Hgb 13.5 L (14.0-18.0) g/dl Hct 40.9 L (42.0-52.0) % MCV 80.8 (80.0-98.0) fL MCH 26.7 L (27.0-33.0) pg MCHC 33.0 (31.0-36.0) g/dl RDW 14.6 (11.0-16.0) % Plt Count 296 (160-400) X10*3/uL MPV 8.1 L (9.4-12.4) fL Immature Gran % (Auto) 0.4 (0.0-0.4) % Neut % (Auto) 73.8 H (45-73) % Lymph % (Auto) 17.1 L (20-40) % [place] % (Auto) 6.7 (2-11) % Eos % (Auto) 1.3 (0-4) % Baso % (Auto) 0.7 (0-2) % Lymph # (Auto) 1.5 (1.2-4.9) X10*3/uL [place] # (Auto) 0.6 (0.1-1.2) X10*3/uL Eos # (Auto) 0.1 (0.0-0.4) X10*3/uL Baso # (Auto) 0.1 (0.0-0.2) X10*3/uL Abs Immat Gran (auto) 0.04 H (0.00-0.03) X10*3/uL Absolute Neuts (auto) 6.6 (2.0-8.3) x10*3/uL Absolute Nucleated RBC 0.000 (0.0-0.012) X10*3/uL Nucleated RBC % (auto) 0.0 (0.0-0.2) /100WBC Sodium 141 (135-145) mmol/L Potassium 4.2 (3.3-5.1) mmol/L Chloride 108 (96-108) mmol/L Carbon Dioxide 24 (22-29) mmol/L Anion Gap 13 (12-20) BUN 12 (9-16) mg/dL Creatinine 0.65 (0.5-1.4) mg/dL Estim Creat Clear Calc 115.8 Estimated GFR > 60 Random Glucose 94 (60-115) mg/dL Calcium 9.7 (8.4-10.2) mg/dL Total Bilirubin 0.3 (0.0-1.0) mg/dL AST 32 (5-37) U/L ALT 29 (0-40) U/L Alkaline Phosphatase 91 (39-117) U/L Total Protein 7.4 (6.5-8.0) g/dL Albumin 4.6 (3.5-5.0) g/dL Independent Historian Clinical information obtained from an independent historian. History obtained from or confirmed by: Other (family) External Record Review External record reviewed: Outpatient record Prescription Management I considered prescription management with: Other Discharge Plan Discharge Clinical Impression: Acute obstruction of esophagus Patient Disposition: Home, Self-Care Instructions: Esophageal Dilation (DC) Additional Instructions: You are on a soft diet only until you see Dr. Mcdonough Please call his office tomorrow If you can crush up your medications as long as they are not in capsules I would do that as well Return for any worsening symptoms or recurrence of symptoms Rest and stay hydrated, your labs were reassuring today Prescriptions: New sucralfate 100 mg/mL suspension 1 g PO BID 7 Days Qty: 140 0RF No Action atorvastatin 80 mg tablet 80 mg PO DAILY 90 Days Qty: 90 2RF clopidogrel [Plavix] 75 mg tablet 75 mg PO DAILY Qty: 90 2RF trazodone 100 mg tablet 100 mg PO BEDTIME 90 Days Qty: 90 2RF pantoprazole 20 mg tablet,delayed release (DR/EC) 20 mg PO DAILY Qty: 30 0RF tramadol 50 mg tablet 50 mg PO Q8H PRN (Reason: Pain) 90 Days Qty: 270 1RF cholecalciferol (vitamin D3) [Vitamin D3] 25 mcg (1,000 unit) Capsule 25 mcg PO DAILY fexofenadine 180 mg tablet 180 mg PO DAILY Qty: 90 3RF triamcinolone acetonide [Nasacort Allergy] 55 mcg aerosol,spray 2 spray intranasal DAILY Qty: 16.9 12RF Rx Instructions: administer into each nostril ascorbate calcium (vitamin C) 500 mg tablet 500 mg PO DAILY multivitamin Tablet 1 tab PO DAILY niacin 500 mg tablet 1,500 mg PO DAILY prednisone 10 mg tablet See Rx Instructions PO DAILY Qty: 20 0RF Rx Instructions: 4 tabs QD x 2 days then 3 tabs QD x 2 days then 2 tabs Qd x 2 days then 1 tab QD x 2 days PO daily; amoxicillin-pot clavulanate 875-125 mg tablet 1 tab PO BID Qty: 14 0RF ciprofloxacin-dexamethasone 0.3-0.1 % drops,suspension 4 drp otic (ear) right BID 7 Days Qty: 7.5 0RF Ref[place]: [facility] [place]Provider Group, Gastroenterology] Interventions: ED Discharge Assessment Last Done: 04/29/25 13:54 Discharge Date/Time: 04/29/25 13:55 Print Language: Kuwaiti
[2025-04-29 11:48] LABS: MANUAL DIFF FLAG NO
[2025-04-29 11:56] LABS: Hematocrit 40.9 % (42.0-52.0); Hemoglobin 13.5 g/dl (14.0-18.0); Imm Gran Abs Auto 0.04 X10*3/uL (0.00-0.03); Imm Gran Pct Auto 0.4 % (0.0-0.4); Lymphocytes Absolute Auto 1.5 X10*3/uL (1.2-4.9); Mean Corpuscular HGB Conc 33.0 g/dl (31.0-36.0); Mean Corpuscular Hemoglobin 26.7 pg (27.0-33.0); Mean Corpuscular Volume 80.8 fL (80.0-98.0); NRBC Abs Auto 0.000 X10*3/uL (0.0-0.012); NRBC Pct Auto 0.0 /100WBC (0.0-0.2); Platelet Count 296 X10*3/uL (160-400); Red Blood Count 5.06 X10*6/uL (4.60-5.80); White Blood Count 8.9 X10*3/uL (4.8-10.8)
[2025-04-29 12:05] LABS: Alanine Aminotransferase 29 U/L (0-40); Albumin Level 4.6 g/dL (3.5-5.0); Alkaline Phosphatase 91 U/L (39-117); Anion Gap 13 (12-20); Aspartate Amino Transferase 32 U/L (5-37); Blood Urea Nitrogen 12 mg/dL (9-16); Calcium 9.7 mg/dL (8.4-10.2); Carbon Dioxide 24 mmol/L (22-29); Chloride 108 mmol/L (96-108); Creatinine Clr Calc Pharmacy 115.8; Estimated Glomerular Filt Rate > 60; Potassium 4.2 mmol/L (3.3-5.1); Sodium 141 mmol/L (135-145); Total Protein 7.4 g/dL (6.5-8.0)
[2025-04-29] MEDS: Lactated Ringers 1,000 ML 999 ML IV (13:19)
[2025-04-29 13:54] VITALS: BP 163/87; PULSE 86; RESP 18; TEMP 36.1; O2SAT 98
== END 2025-04-29 13:55 | disposition home or self-care (01) ==
PROVIDERS: Registered Nurse Emergency; Emergency Provider Emergency Medicine; PCP Internal Medicine
DX: K22.2 Esophageal obstruction (principal); F41.9 Anxiety disorder, unspecified; D64.9 Anemia, unspecified; Z87.19 Personal history of other diseases of the digestive system; Z79.899 Other long term (current) drug therapy
CPT/HCPCS: 36415; 80053; 85025; 96361; 96374; 99283; 99284; J1610; J7120

== ENCOUNTER 2025-05-22 08:41 | Outpatient (AMB) | payer MEDICARE, SELFPAY ==
--- OUTSIDE RECORDS SUMMARY | 2024-05-02 05:30 | XMS_ITS ---
Author Organization [facility] Address [address] [place] [address] Care Team Providers Care Hot Pipe Gauger Name Role Phone Po Maverick TORRES Primary Care Provider Michael Clayton [phone] REASON FOR VISIT dysphagia,abn ugi barium series Encounters Encounter Location Date Provider Diagnosis [facility] [place] Outpatient [address] [place] [id number] 05/02/2024 Michael Mcdonough Other specified di sease of esophagus K22.89 ; Dysphagia R13.10 ; GI bleed K92.2 ; Hiatal hernia K44.[address] scan, esophagus R93.3 Assessments Encounter Date Diagnosis (ICD Code) Assessment Notes Treatment Notes Treatment Clinical Notes Section Notes 05/02/2024 Other specified disease of esophagus (ICD-10 - K22.89) 05/02/2024 Dysphagia (ICD-10 - R13.10) 05/02/2024 GI bleed (ICD-10 - K92.2) 05/02/2024 Hiatal hernia (ICD-10 - K44.9) 05/02/[address] scan, esophagus (ICD-10 - R93.3) Plan Of Treatment No Information Progress Notes * INO GREER ADOB:[birth year] (70 yo M)Acc No.[id number]:05/02/2024 EGD/MAC Patient: Tiana CORTES INO Jaimee Provider: Amanuel Mcdonough MD :1955 A ge:69 Y S ex:Male Date:05/02/2024 Address:[place], [id number] Pcp:Maverick Quezada MD Subjective: * Chief Complaints: * D ysphagia,abn ugi barium series Assessment: * Assessment: 1. O ther specified disease of esophagus - K22.89 (Primary) 2 . D ysphagia - R13.10 3 . G I bleed - K92.2 4 . H iatal hernia - K44.9? 5. A bnormal CT scan, esophagus - R93.3 Plan: * Procedure Codes: 4 3249 ESOPH ENDOSCOPY, DILATION Billing Information: * Procedure Codes: 02090 ESOPH ENDOSCOPY, DILATION. * The named appointment provid er may or may not be the originator of this progress note, and it is not deemed complete until electronically signed by the appointment provider. Sign off status: Pending * Provider: Amanuel Mcdonough MD Date: 07/03/2023 Generated for Butch dai/Álvaro/eTransmitting on: 07/23/2024 08:44 AM EST
--- OUTSIDE RECORDS SUMMARY | 2025-05-22 08:45 | XMS_ITS | Patient Health Record ---
Author Organization [facility] Address [address] [place] [id number] Care Team Providers Care Stacker Driver Name Role Phone Maverick Quezada MD Primary Care Provider Michael Clayton [phone] Allergies No Known Allergies Reason For Referral No Information Medications Medication SIG (Take, Route, Frequency, Duration) Notes Start Date End Date Status traMADol HCl 50 MG Tablet (Schedule IV Drug) TAKE 1 TABLET BY MOUTH THREE TIMES A DAY Oral; Duration: 90 Active Vitamin D 25 MCG (1000 UT) Tablet 1 tablet Orally Once a day; Duration: 30 day(s) Not-Taking/PRN Plavix 75 MG Tablet 1 tablet Orally Once a day; Duration: 30 day(s) Active Fexofenadine HCl 180 MG Tablet TAKE 1 TABLET BY MOUTH EVERY DAY NEEDED Oral; Duration: 90 Not-Taking/PRN traZODone HCl 100 MG Tablet TAKE 1 TABLET BY MOUTH AT BEDTIME NEEDED Oral; Duration: 90 Active ALPRAZolam 0.25 MG Tablet (Schedule IV Drug) TAKE 1 TABLET BY MOUTH TWICE A DAY NEEDED Oral; Duration: 30 Active Vitamin C 500 MG Capsule as directed Orally Not-Takin g/PRN Cialis 20 MG Tablet 1 tablet Orally; Duration: 30 day(s) Active Omeprazole 20 MG Capsule Delayed Release 1 capsule 30 minutes before morning meal Orally Once a day Not-Taking/PRN Atorvastatin Calcium 80 MG Tablet 1 tablet Orally Once a day; Duration: 30 day(s) Active Fenofibrate 160 MG Tablet 1 tablet Orally Once a day; Duration: 30 day(s) Active Nasonex 50 MCG/ACT Suspension 2 sprays in each nostril Nasally Once a day; Duration: 30 day(s) Active Multivitamin Adult - Tablet as directed Orally Active Fish Oil 1000 MG Capsule 1 capsule Orally Twice a day Not-Taking/PRN Niaspan 500 MG Tablet Extended Release 3 tablet in am and 3 tablets at bedtime Orally twice a day Active Immunizations Vaccine Route Administration Date Status Comme nts Influenza Unknown 01/28/2019 Administered Influenza Unknown 02/28/2020 Administered Social History Tobacco Use: Social History Observation Description Date Details (start date - stop date) Former Smoker NA - NA Social History Drugs/Alcohol: Social Info Question Answer Notes Alcohol Screen Did you have a drink containing alcohol in the past year? Yes How often did you have a drink containing alcohol in the past year? Never (0 point) How many drinks did you have on a typical day when you were drinking in the past year? 1 or 2 drinks (0 point) How often did you have 6 or more drinks on one occasion in the past year? Never (0 point) Points 0 Interpretation Negative Tobacco Use: Social Info Question Answer Notes Tobacco Use/Smoking Patient is a former smoker How long has it been since you last smoked? 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 Section Notes: Nonsmoker; no sig alcohol Nonsmoker; no sig alcohol Nonsmoker; no sig alcohol Problems Problem Type SNOMED Code ICD Code Onset Dates Problem Status W/U Status Risk Notes Problem Screening for malignant neoplasm of colon (766031315) Encounter for screening for malignant neoplasm of colon (Z12.11) Active confirmed Problem Dysphagia (80324709) Dysphagia (R13.10) Active confirmed Problem Iron deficiency anemia (11424924) Iron deficiency anemia (D50.9) Active confirmed Problem Preprocedural examination (140567274295224 ) Preprocedural examination (Z01.818) Active confirmed Problem Abnormal upper gastrointestinal barium series (R93.3) Active confirmed Problem Chronic gastritis (4810740) Gastritis, chronic (K29.50) Active confirmed Problem Anemia (420120082) Anemia, unspecified type (D64.9) Active confirmed Plan Of Treatment Pending Test Test Name [...] [place] [address] [place] [address] [id number] INO GREER Self - patient is the insured [employer] CLAIM[employer] [address] [place] [address] [id number] INO GREER Self - patient is the insured Medical (General) History Medical History History ICD Code Denies [place],DM,CVA,Lung [...] stricture Back Surgery in 2022-Dr. Watkins at [facility]
[2025-05-22 08:49] VITALS: BP 140/76; PULSE 84; O2SAT 97; BMI 23.7
--- NOTE | 2025-05-22 08:49 | A.OFFPC_ITS ---
Vital Signs 05/22/25 08:49 Height 5 ft 11 in Weight 170 lb BMI 23.7 BP 140/76 H Blood Pressure Location Lt brachial Position Sitting Pulse 84 Pulse Source Pulse Oximeter Pulse Oximetry (%) 97 Oxygen Delivery Method Room Air Intake Visit Reasons: Sinus ear infection Allergies pollen extracts (POLLEN) Allergy (Intermediate, Verified 05/22/25 08:51) Sneezing Medication List - Last Reconciled 05/22/25 by Maverick Quezada MD ascorbate calcium (vitamin C) 500 mg PO DAILY atorvastatin 80 mg PO DAILY 90 days cholecalciferol (vitamin D3) (Vitamin D3) 25 mcg PO DAILY clopidogrel (Plavix) 75 mg PO DAILY fexofenadine 180 mg PO DAILY multivitamin 1 tab PO DAILY niacin 1,500 mg PO DAILY pantoprazole 40 mg PO DAILY sucralfate 1 g (10 mL) PO BID 30 days tramadol 50 mg PO Q8H PRN 90 days trazodone 100 mg PO BEDTIME 90 days triamcinolone acetonide (Nasacort Allergy) 2 sprays intranasal DAILY Tobacco use date assessed: 03/22/25 Fall risk assessment: No Falls in past year Last assessed Fall Risk: 05/22/25 Dental Screening Dental Screen Date: 03/22/25 HPI HPI Comments History of Present Illness Details History of Present Illness The patient is a 70 year old male presenting with acute sinus congestion, hoarseness, and epistaxis. His sinus symptoms began approximately two weeks ago with a bloody, scabby nose, which progressed to congestion, hoarseness, and left-sided facial pressure that has started to move to the right side. He has a history of chronic sinus problems and nasal polyps, for which he has a pending ENT referral. The patient also has a history of dysphagia and required an ER visit on April 29 for an esophageal obstruction caused by a large pill, which was a recurrent event from a year prior. He underwent an esophageal dilatation in the past and notes he is now eating slower, though he tolerates fluids without issue. Previously, he was found to have stomach inflammation and was prescribed pantoprazole; he currently takes 20 mg but has previously been on 40 mg. A Carafate prescription from the ER was never filled at his pharmacy. His last gastroenterology visit was over a year ago. His past medical history is significant for hypercholesterolemia, lumbar degenerative disc disease, impaired glucose tolerance, generalized anxiety disorder, and a history of an anal fistula in 2020. Blood work from April 29, 2024, showed mild anemia with a hemoglobin of 13.5, but otherwise normal electrolytes, renal function, liver function, and blood sugar. His last cholesterol test was in 2020 with an LDL of 113, and his last EGD and colonoscopy were in 2019. Health Maintenance The patient's last cholesterol screening was in 2020. An order for updated blood work, including a lipid panel, will be placed. Counseling was provided regarding hydration, advising against the routine use of commercial electrolyte solutions due to risks of electrolyte abnormalities and recommending plain water as the preferred source. Social History - Exercise: The patient reports going to the gym almost every day. - Sleep: He takes trazodone at night for sleep. - Diet: He is watching his diet and was recently using a powdered electrolyte solution for hydration. Results - Labs (April 29): Hemoglobin 13.5 g/d L and hematocrit 40.9%, indicating mild anemia. Electrolytes, renal function, blood sugar, and liver function were normal. - Labs (2020): LDL cholesterol was 113 m g/dL. - Procedures: Last EGD and colonoscopy w ere in 2019. [facility] Medical History (Updated 05/22/25 @ 09:21 by Maverick Quezada MD) Sinus congestion Otogenic otalgia of right ear Pain in right testicle Otitis externa of right ear Facial rash Right ear pain Finger pain, left Mass of left axilla RLQ abdominal pain Sebaceous cyst Anxiety History of nasal polyp Recurrent sinusitis Screening for abdominal aortic aneurysm Anal fistula Insomnia Impaired glucose tolerance Peripheral neuropathy Lumbar degenerative disc disease Erectile dysfunction Allergic rhinitis Mixed hyperlipidemia Back pain Anemia Urethral stricture Viral pneumonia Peripheral vascular disease Surgical History History of back surgery History of esophagogastroduodenoscopy (EGD) History of surgery (03/03/21) Hx of sinus surgery Hx of colonoscopy S/P femoral-popliteal bypass surgery H/O arterial bypass of lower limb Family History Father Medical history unknown Mother Medical history unknown Social History Housing: House Alcohol intake: never Patient Tobacco Use Status: Former Tobacco user Tobacco use type: Cigarette Years Smoked: quit 2009 e-Cigarette/Vaping Use: Never Used Second Hand Smoke Exposure: Yes service: No Current occupational status: employed Cognitive needs: No Hearing needs: No Vision needs: Yes Questionnaire Thrive Questionnaire Date Thrive assessed: 09/20/24 I am a: Patient What is your living situation today?: I have a steady place to live Within the past 12 months, did the food you bought not last and you didn't have the money to get more?: Never true Within the past 12 months, did you worry whether your food would run out before you got money to buy more?: Never true Do you have trouble paying for medicines?: No Do you have trouble getting transportation to medical appointments?: No Do you have trouble paying your heating and electricity bill?: No Do you have trouble taking care of your child, family member or friend?: No Do you have trouble with day-to-day activities such as bathing, preparing meals, shopping, managing finances, etc.?: No Are you currently unemployed and looking for a job?: No Are you interested in more education?: No Currently or been in a relationship where the following occur: I choose not to answer THRIVE Score: 0 HÉCTOR-7 AMB Questionnaire HÉCTOR-7 Date HÉCTOR - 7 assessed: 08/17/24 Source: Developed by Drs. Michael Rebollar, Kait Cooper, Abelardo Ruby and colleagues, with an educational faustino from [employer]. Review of Systems Narrative Review of Systems - HEENT: Reports sinus congestion, hoarseness, epistaxis described as a bloody nose that felt scabby, and facial pain. - Respiratory: Denies symptoms have moved into his chest. - Gastrointestinal: Reports dysphagia, especially with large pills. Denies coughing while eating. Denies abdominal pain. - Musculoskeletal: Reports back pain in the kidney area. - Skin: Denies rashes. Physical exam (Primary Care) Vital Signs: Last Vital Signs Pulse 84 05/22/25 08:49 BP 140/76 H 05/22/25 08:49 Pulse Ox 97 05/22/25 08:49 Oxygen Delivery Method Room Air 05/22/25 08:49 BMI result Body Mass Index 23.7 Tobacco/Smoking Status: Tobacco use Status Tobacco use date assessed 03/22/25 05/22/25 08:50 Patient Tobacco Use Status Former Tobacco user 05/22/25 08:50 Tobacco use type Cigarette 05/22/25 08:50 e-Cigarette/Vaping Use Never Used 05/22/25 08:50 Thrive Assessment: Date of Thrive Assessment Date Thrive assessed 09/20/24 05/22/25 08:50 Currently or been in a relationship where the following occur: I choose not to answer Narrative Physical Exam - HEENT: Nasal mucosa is boggy with a narrowed airway. The nasal septum is bowed. Oropharynx is clear. Tympanic membranes are pink and unremarkable bilaterally. - Respiratory: Lungs are clear to auscultation bilaterally. Const General: alert; No acute distress Eyes Conjunctivae: conjunctivae normal Resp Auscultation: clear to auscultation bilaterally Cardio Rate: regular rate Rhythm: regular rhythm GI Inspection: Yes normal to inspection Extrem General: Yes normal to inspection and No edema Coding Level of Care Code Est Pt Level 4 (37533) Diagnoses Oropharyngeal dysphagia R13.12 Dysphagia type: oropharyngeal phase Nasal congestion R09.81 Generalized anxiety disorder F41.1 Anemia D64.9 Erosive gastritis K29.60 Assessment & Plan Assessment & Plan (1) Dysphagia: Code(s): R13.10 - Dysphagia, unspecified Category: Medical Qualifiers: Dysphagia type: oropharyngeal phase Qualified Code(s): R13.12 - Dysphagia, oropharyngeal phase (2) Nasal congestion: Code(s): R09.81 - Nasal congestion Category: Medical (3) Generalized anxiety disorder: Code(s): F41.1 - Generalized anxiety disorder Category: Medical (4) Anemia: Code(s): D64.9 - Anemia, unspecified Category: Medical (5) Erosive gastritis: Code(s): K29.60 - Other gastritis without bleeding Category: Medical Plan Plan Patient was informed and verbally consented to the use of an ambient scribe for clinic note documentation during this visit. 1. Acute Sinusitis The patient presents with a two-week history of symptoms consistent with acute sinusitis, including congestion, hoarseness, and epistaxis. He has a history of difficulty swallowing large pills like Augmentin. An alternative antibiotic, doxycycline, taken twice daily, will be prescribed. To address inflammation, a low-dose, 8-day course of prednisone was prescribed, with instructions to taper off as symptoms improve but not to stop prematurely. The patient will continue using saline spray and Nasonex and was advised on proper nose-blowing technique to avoid exacerbating epistaxis. He will continue to pursue follow-up with an ENT specialist for his underlying nasal polyps. 2. Dysphagia And Gastroesophageal Reflux Disease The patient reports recurrent dysphagia, particularly with large pills, and has a history of stomach inflammation and esophageal dilatation. A prescription for Carafate liquid suspension, which was not filled after his recent ER visit, will be re-sent. His pantoprazole dosage will be increased from 20 mg to 40 mg daily to better manage his GERD symptoms. A follow-up with his ultrasound technologist sonographer, Dr. Mcdonough, will be scheduled. Discussion Notes I discussed my assessment of acute sinusitis with the patient and the plan to treat it with doxycycline, which is an alternative to the large Augmentin pills he has difficulty swallowing. I also prescribed a short course of prednisone to reduce inflammation, explaining the benefits as well as the risk of immune suppression. I explained that his sensation of nasal blockage is likely related to scabbing and clots from his nosebleeds, and I advised him to avoid blowing his nose forcefully to prevent re-bleeding. We addressed his history of dysphagia and GERD. I will resend the prescription for liquid Carafate and increase his pantoprazole to 40 mg daily. I informed him that we would assist in setting up a follow-up appointment with his ultrasound technologist sonographer and encouraged him to continue trying to schedule with the ENT specialist. I counseled the patient against using commercial electrolyte solutions for regular hydration due to the risk of electrolyte imbalances, especially hyperkalemia, and recommended plain water instead. We also briefly discussed t hat low-dose magnesium is generally safe for sleep but can cause diarrhea. Finally, I placed orders for updated lab work, including a cholesterol panel. Patient Instructions - Take the doxycycline antibiotic twice a day as prescribed to treat your sinus infection. - Take the prednisone for 8 days as directed to help reduce swelling in your sinuses. You may be able to reduce the dose as you feel better, but do not stop it too early. - Your prescription for pantoprazole will be increased to 40 mg once daily. - A prescription for Carafate, a liquid medicine to coat your stomach, has been sent to your pharmacy. - Continue using your Nasonex and saline nasal sprays. - Try to avoid blowing your nose too hard, as this can make the bleeding start again. - We will help schedule a follow-up appointment with your stomach doctor (ultrasound technologist sonographer), Dr. Mcdonough. - Please continue trying to call and schedule your appointment with the ear, nose, and throat (ENT) specialist. - Please get your new bloodwork done. - For hydration, drink plain water. Avoid using powdered electrolyte solutions regularly, as they can cause problems with your body's chemistry. - Contact the office if you develop a skin rash or if your symptoms do not improve or worsen. Orders: Orders Magnesium Today J32.9 - Chronic sinusitis, unspecified Referrals Gastroenterology Referral R13.10 - Dysphagia, unspecified Medications: New doxycycline hyclate 100 mg PO BID 20 caps 0RF J32.9 - Chronic sinusitis, unspecified prednisone 4 tabs QD x 2 days then 3 tabs QD x 2 days then 2 tabs Qd x 2 days then 1 tab QD x 2 days PO daily; 20 tabs 0RF J32.9 - Chronic sinusitis, unspecified, J45.909 - Unspecified asthma, uncomplicated Changed From sucralfate 1 g (10 mL) PO BID 7 days 140 mL 0RF R13.10 - Dysphagia, unspecified To sucralfate 1 g (10 mL) PO BID 600 mL 1RF 30 days R13.10 - Dysphagia, unspecified From pantoprazole 20 mg PO DAILY 30 tabs 0RF K29.60 - Other gastritis without bleeding To pantoprazole 40 mg PO DAILY 90 tabs 0RF K29.60 - Other gastritis without bleeding
== END 2025-05-22 09:27 | disposition home or self-care (01) ==
LOC: HO.HMCH 08:42
PROVIDERS: PCP Internal Medicine; Visit Provider Internal Medicine
DX: R13.12 Dysphagia, oropharyngeal phase (principal); R09.81 Nasal congestion; F41.1 Generalized anxiety disorder; D64.9 Anemia, unspecified; K29.60 Other gastritis without bleeding

== ENCOUNTER → 2025-05-22 08:41 | Outpatient (BNVA) | payer MEDICARE, SELFPAY | PROVIDERS: PCP Internal Medicine; Visit Provider Internal Medicine | DX: R13.12 Dysphagia, oropharyngeal phase (principal); R09.81 Nasal congestion; F41.1 Generalized anxiety disorder; D64.9 Anemia, unspecified; K29.60 Other gastritis without bleeding; Z79.899 Other long term (current) drug therapy | CPT/HCPCS: 99212 ==